=== PATIENT | male | born 1955 | race Caucasian/White ===

== ENCOUNTER 2020-09-24 07:55 | Outpatient (REF) | payer OTHER, SELFPAY ==
[2020-09-24 10:28] LABS: MANUAL DIFF FLAG NO
[2020-09-24 10:29] LABS: Basophils Percent Auto 0.4 % (0-2); Eosinophils Absolute Auto 0.2 X10*3/uL (0.0-0.4); Eosinophils Percent Auto 3.3 % (0-4); Hemoglobin 15.5 g/dl (14.0-18.0); Imm Gran Abs Auto 0.01 X10*3/uL (0.00-0.03); Imm Gran Pct Auto 0.2 % (0.0-0.4); Lymphocytes Absolute Auto 1.5 X10*3/uL (1.2-4.9); Mean Corpuscular HGB Conc 33.7 g/dl (31.0-36.0); Mean Platelet Volume 9.7 fL (9.4-12.4); Monocytes Absolute Auto 0.5 X10*3/uL (0.1-1.2); Monocytes Percent Auto 9.2 % (2-11); Neutrophils Absolute Auto 2.8 X10*3/uL (2.0-8.3); Neutrophils Percent Auto 56.9 % (45-73); Platelet Count 243 X10*3/uL (160-400); Red Blood Count 4.84 X10*6/uL (4.60-5.80); Red Cell Distribution Width 12.6 % (11.0-16.0); White Blood Count 4.9 X10*3/uL (4.8-10.8)
[2020-09-24 10:58] LABS: Alanine Aminotransferase 38 U/L (0-40); Albumin Level 4.1 g/dL (3.5-5.0); Alkaline Phosphatase 62 U/L (39-117); Anion Gap 11 (12-20); Aspartate Amino Transferase 38 U/L (5-37); Bilirubin Total 0.8 mg/dL (0.0-1.0); Blood Urea Nitrogen 24 mg/dL (9-16); Calcium 8.9 mg/dL (8.4-10.2); Carbon Dioxide 28 mmol/L (22-29); Chloride 105 mmol/L (96-108); Cholesterol 141 mg/dL; Estimated Glomerular Filt Rate > 60; Glucose Fasting 85 mg/dL (60-99); HDL Cholesterol 47 mg/dL; LDL Cholesterol Calculated 84 mg/dl; Potassium 4.4 mmol/l (3.3-5.1); Sodium 140 mmol/L (135-145); Total Protein 6.8 g/dL (6.5-8.0); Triglycerides 50 mg/dL
== END 2020-09-24 07:56 | disposition home or self-care (01) ==
LOC: HO.10HDL 07:55
PROVIDERS: Absent Provider Internal Medicine; PCP Internal Medicine; Visit Provider Internal Medicine
DX: E78.00 Pure hypercholesterolemia, unspecified (principal); N40.0 Benign prostatic hyperplasia without lower urinary tract symptoms; I25.10 Atherosclerotic heart disease of native coronary artery without angina pectoris
CPT/HCPCS: 36415; 80053; 80061; 85025

== ENCOUNTER → 2020-09-30 10:39 | Outpatient (BNVA) | payer OTHER, SELFPAY | PROVIDERS: PCP Internal Medicine; Visit Provider Internal Medicine | DX: I25.10 Atherosclerotic heart disease of native coronary artery without angina pectoris (principal); Q23.1 Congenital insufficiency of aortic valve | CPT/HCPCS: 93005; 99212 ==

== ENCOUNTER 2020-11-30 12:20 | Outpatient (REF) | payer OTHER, SELFPAY ==
[2020-11-30 14:14] LABS: Glucose Urine UA NEG (NEG); Leukocyte Esterase Urine NEG (NEG); Nitrite Urine NEG (NEG); PH 5.5 (5.0-8.0); Specific Gravity - Urine 1.025 (1.005-1.025); Urine Blood TRACE (NEG); Urine Ketones NEG (NEG); Urine Protein NEG (NEG-TRACE)
[2020-11-30 14:17] LABS: Appearance Urine CLEAR; Color Urine YELLOW
[2020-11-30 14:23] LABS: RBC Urine 0-2 /HPF (0); Squamous Epithelial Cell Urine TRACE /LPF; WBC Urine 0 /HPF (0-4)
[2020-11-30 14:43] LABS: Alanine Aminotransferase 30 U/L (0-40); Albumin Level 4.6 g/dL (3.5-5.0); Alkaline Phosphatase 68 U/L (39-117); Anion Gap 13 (12-20); Aspartate Amino Transferase 32 U/L (5-37); Bilirubin Total 0.7 mg/dL (0.0-1.0); Blood Urea Nitrogen 27 mg/dL (9-16); Calcium 9.6 mg/dL (8.4-10.2); Carbon Dioxide 30 mmol/L (22-29); Chloride 102 mmol/L (96-108); Estimated Glomerular Filt Rate > 60; Glucose Random 80 mg/dL (60-115); Potassium 4.6 mmol/L (3.3-5.1); Sodium 140 mmol/L (135-145); Total Protein 7.7 g/dL (6.5-8.0)
[2020-11-30 14:58] LABS: Prostate Specific Antigen Scr 1.58 ng/mL (<0.05-4.0)
== END 2020-11-30 12:21 | disposition home or self-care (01) ==
LOC: HO.HMGCLDS 12:20
PROVIDERS: PCP Internal Medicine; Visit Provider Internal Medicine
DX: I25.10 Atherosclerotic heart disease of native coronary artery without angina pectoris (principal); E78.00 Pure hypercholesterolemia, unspecified; N40.0 Benign prostatic hyperplasia without lower urinary tract symptoms; Z12.5 Encounter for screening for malignant neoplasm of prostate
CPT/HCPCS: 36415; 80053; 81001; 84153

== ENCOUNTER → 2021-03-26 08:17 | Outpatient (REF) | payer OTHER, SELFPAY ==
--- NOTE | 2021-03-26 08:20 | CA_ITS ---
Transthoracic Echocardiogram Patient (Last, First, Middle): Eliot Tobin E Gender: Male Date of : 1955 Age: 65 Procedure Date: 03/26/2021 Procedure Type: Transthoracic Echocardiogram Location: OP Height: 170.18 cm Weight: 65.77 kg BSA: 1.76 m2 Heart Rate: bpm BP: 120 / 80 mmHg Slps: Rac[place] MD: Gordon Huffman MD Conservation Engineer: Manjeet August MD Symptoms: I25.10 - Atherosclerotic heart disease of [place] coronary artery without angina pectoris Study Quality: Good ECG Rhythm: Sinus Conclusions: - 1. Normal LV systolic function with impaired relaxation filling pattern 2. Possible bicuspid aortic valve with trivial aortic regurgitation 3. Normal RV systolic pressure 4. No pericardial effusion Findings Left Ventricle Normal left ventricular size, thickness, and systolic function. The visually estimated ejection fraction is between 60-65%. Spectral Doppler is indicative of an impaired relaxation filling pattern. E/E prime ratio is <8, consistent with normal filling pressures. Evidence suggests grade I (mild) diastolic dysfunction. Wall Motion Rest Echo Findings The basal inferior segment is hypokinetic. All other scored wall segments showed normal motion. Right Ventricle Normal right ventricular cavity size and systolic function. Atria The left atrium is normal in size. There is no evidence of interatrial shunt. The right atrium is normal in size. Aortic Valve There is mild calcification of the aortic valve. There is mild thickening of the aortic valve. There is no aortic valve stenosis. There is trace (trivial) aortic valve regurgitation. Possible bicuspid aortic valve Mitral Valve Normal mitral valve structure and function. There is trace mitral valve regurgitation. There is no mitral valve stenosis. Pulmonic Valve The pulmonic valve is likely normal. Tricuspid Valve Normal tricuspid valve structure. There is trace tricuspid valve regurgitation. The right ventricular systolic pressure is 18 mmHg. There is no evidence of pulmonary hypertension. Great Vessels All visible segments of the aorta are normal in size. Venous The inferior vena cava is normal in size and collapses greater than 50% with inspiration. Pericardium/Pleural There is no evidence of pericardial effusion. Prior Study Comparison No significant change compared to prior study dated: 12/29/2020. Measurements 2D Linear Measurements RVIDd: 4.10 IVSd: 1.22 0.6-0.9/0.6-1.0 cm LVIDd: 5.01 3.9-5.3/4.2-5.9 cm LVIDs: 3.43 2.0-3.6 cm LVPWd: 1.03 0.7-1.1 cm Ao Root: 3.04 2.1-3.5 cm LV Mass: 267.22 67-162/88-224 g LVOT Diam: 2.27 3.0+(-)1.3 cm Mitral Valve MV Pk E: 0.69 MV PK A: 0.76 MV Decel Time: 252.25 E/A: 0.91 E'Lateral: 0.08 E'Medial: 0.05 PHT: 92.25 Decel [place]: 2.73 Aortic Valve AoV Pk Hermes: 1.33 AoV Mn Hermes: 0.89 AoV VTI: 0.31 AoV Pk Grad: 7.08 Aov Mn Grad: 3.67 AI Pk Hermes: 3.63 AI [place]: 1.22 LVOT LVOT Pk Hermes: 0.96 LVOT Mn Hermes: 0.65 LVOT VTI: 0.25 LVOT Pk Grad: 3.69 LVOT Mn Grad: 1.89 LVOT Diam: 2.27 LVOT Area: 4.03 Diastolic Function MV Pk E: 0.69 MV Pk A: 0.76 E/A: 0.91 E'Medial: 0.05 E' Laterial: 0.08 Tricuspid Valve TR Pk Hermes: 1.94 TR Pk Grad: 15.03 RA Press: 3.00 RVSP: 18.00 Great Vessels Aorta Ao Root-2D: 3.04 2.0-3.7 cm Ao Asc: 3.30 2.1-3.4 cm Ao Arch: 3.32 Updated in Other Vendor System with Status of Final Manjeet August MD electronically signed on 03/27/2021 2:17:15 PM with status of Final
== END ==
LOC: HO.CARD 08:17
PROVIDERS: Visit Provider Internal Medicine
DX: I25.10 Atherosclerotic heart disease of native coronary artery without angina pectoris (principal)
CPT/HCPCS: 93306

== ENCOUNTER → 2021-04-05 09:58 | Outpatient (BNVA) | payer OTHER, SELFPAY | PROVIDERS: PCP Internal Medicine; Referring Provider Internal Medicine; Visit Provider Internal Medicine | DX: I25.10 Atherosclerotic heart disease of native coronary artery without angina pectoris (principal); Q23.1 Congenital insufficiency of aortic valve | CPT/HCPCS: 99212 ==

== ENCOUNTER 2021-04-12 12:47 | Outpatient (REF) | payer OTHER, SELFPAY ==
--- NOTE | ~2021-04-12 | US_ITS ---
EXAMINATION: US EXTRACRANIAL CAROTID DUPLEX, BILATERAL CLINICAL INFORMATION: This is a 65-year-old male with occlusion and stenosis of bilateral carotid arteries. Atherosclerotic disease. COMPARISON: None TECHNIQUE: Real-time ultrasound and Doppler techniques (integrating B-mode 2-D vascular images, Doppler spectral analysis and color-flow Doppler imaging) were utilized to interrogate the extracranial carotid arteries, the vertebral arteries and proximal subclavian arteries bilaterally. The degree of stenosis is determined by criteria similar to NASCET. FINDINGS: Right Side: 1. There is minimal atherosclerotic plaque seen in the bifurcation/proximal ICA region. 2. The common carotid artery PSV proximally is 101 cm/s and distally 99 cm/s. 3. The proximal internal carotid artery velocities are 66 cm/s systolic and 26 cm/s diastolic. 4. The proximal external carotid artery PSV is 104 cm/s. 5. The vertebral artery shows antegrade flow. 6. The subclavian artery waveforms are normal. Left Side: 1. There is minimal atherosclerotic plaque seen in the bifurcation/proximal ICA region. 2. The common carotid artery PSV proximally is 110 cm/s and distally 82 cm/s. 3. The proximal internal carotid artery velocities are 54 cm/s systolic and 18 cm/s diastolic. 4. The proximal external carotid artery PSV is 89 cm/s. 5. The vertebral artery shows antegrade flow. 6. The subclavian artery waveforms are normal. US/US carotid duplex BI IMPRESSION: 1. RIGHT: Minimal, non-hemodynamically significant stenosis of the proximal right internal carotid artery corresponding to a 0-49% stenosis by velocity criteria. 2. LEFT: Minimal, non-hemodynamically significant stenosis of the proximal left internal carotid artery corresponding to a 0-49% stenosis by velocity criteria.
== END 2021-04-12 12:48 | disposition home or self-care (01) ==
LOC: HO.HMGCX 12:47
PROVIDERS: PCP Internal Medicine; Visit Provider Internal Medicine
DX: I25.10 Atherosclerotic heart disease of native coronary artery without angina pectoris (principal); I65.23 Occlusion and stenosis of bilateral carotid arteries
CPT/HCPCS: 93880

== ENCOUNTER → 2021-06-09 09:24 | Outpatient (BNVA) | payer OTHER, SELFPAY | PROVIDERS: PCP Internal Medicine; Referring Provider Internal Medicine; Visit Provider Internal Medicine | DX: I25.10 Atherosclerotic heart disease of native coronary artery without angina pectoris (principal); Q23.1 Congenital insufficiency of aortic valve | CPT/HCPCS: 99212 ==

== ENCOUNTER → 2021-06-25 08:53 | Outpatient (REF) | payer OTHER, SELFPAY ==
--- NOTE | ~2021-06-25 | NM_ITS ---
EXERCISE MYOCARDIAL PERFUSION STUDY INDICATION: Coronary artery disease, assess ischemia TECHNIQUE: The patient was brought in for an exercise perfusion study on 06/25/2021. Patient performed exercise as per Og protocol and was injected 25 mCi of sestamibi once target heart rate was achieved. Images were obtained using the SPECT gamma camera interlaced with the gating device. Images were obtained in supine position. Resting perfusion study was performed on 06/28/2021. Patient was administered 25 mCi of sestamibi intravenously at rest. Images were then obtained in supine position. Total DLP 78mGy-cm. Images were processed with the software and compared side to side in short axis, horizontal long axis and vertical long axis views. FINDINGS: Raw images were reviewed. The stress perfusion study showed diminished tracer uptake in the basal part of inferior septal and inferolateral wall. There is slight improvement with CT attenuation correction but less so in the inferoseptal aspect. The gated study shows low normal LV systolic function with calculated LVEF of 52%. LV cavity is normal in size. The gated study shows diminished contractility in the basal part of inferoseptal and inferolateral wall. Resting study shows mildly diminished tracer uptake in the basal inferoseptal and inferolateral wall. No significant change with CT attenuation correction. Gating at rest reveals wall motion abnormality similar to stress with LVEF 56%. The findings are consistent with perfusion defect in the basal part of anteroseptal and inferolateral [place] with some reversible and some fixed components. NM/NM cardiolite stress test IMPRESSION: 1. Myocardial perfusion imaging study shows mixed ischemia/infarct pattern in the basal inferoseptal/inferolateral wall. 2. Gated LVEF is 52% during stress and 56% during rest. Correlate with echocardiogram. 3. Transient ischemic dilatation not present. EKG component of the test reported separately.
--- NOTE | 2021-06-25 08:56 | CA_ITS ---
Acquisition Time: 2021-06-25 09:08:56 Total Exercise Time: 00:11:00 Test Indications: Abnormal ECG Medications: ASA ATORVASTATIN Protocol: CHRISTEN Max HR: 142 BPM 91% of Pred: 156 BPM Max BP: 178/086 mmHG Max Work Load: 13.4 METS Exercise stress test with exercise 11 min of Christen protocol, achieving 13.4 MET workload, with mild sob, no chest discomfort, with isolated PVCs and ventricular cuplets, with normotensive response to exercise, with artifact at peak exercise, without EKG changes meeting criteria for ischemia at 30 sec and 1min 5 sec of recovery then with slight downslope of ST segments inferiorly and V5-V6 starting at 6 min recovery and continuing until end of test at 11 min recovery, asymptomatic. Nuclear images pending. Test reviewed with Dr Huffman. Referred By: Gordon Huffman Overread By: AZRA JARVIS
== END ==
LOC: HO.CARD 08:53
PROVIDERS: Visit Provider Internal Medicine
DX: I25.10 Atherosclerotic heart disease of native coronary artery without angina pectoris (principal)
CPT/HCPCS: 78452; 93017; A9500

== ENCOUNTER → 2021-07-07 15:09 | Outpatient (BNVA) | payer OTHER, SELFPAY | PROVIDERS: PCP Internal Medicine; Referring Provider Internal Medicine; Visit Provider Nurse Practitioner Family ==

== ENCOUNTER 2021-08-04 09:08 | Outpatient (REF) | payer OTHER, SELFPAY ==
[2021-08-04 11:25] LABS: MANUAL DIFF FLAG NO
[2021-08-04 11:37] LABS: Basophils Percent Auto 0.5 % (0-2); Eosinophils Absolute Auto 0.1 X10*3/uL (0.0-0.4); Eosinophils Percent Auto 3.2 % (0-4); Hematocrit 43.6 % (42.0-52.0); Hemoglobin 15.1 g/dl (14.0-18.0); Imm Gran Abs Auto 0.01 X10*3/uL (0.00-0.03); Imm Gran Pct Auto 0.3 % (0.0-0.4); Lymphocytes Absolute Auto 0.9 X10*3/uL (1.2-4.9); Lymphocytes Percent Auto 24.8 % (20-40); Mean Corpuscular HGB Conc 34.6 g/dl (31.0-36.0); Mean Corpuscular Hemoglobin 31.7 pg (27.0-33.0); Mean Corpuscular Volume 91.6 fL (80.0-98.0); Monocytes Absolute Auto 0.3 X10*3/uL (0.1-1.2); Monocytes Percent Auto 8.2 % (2-11); Neutrophils Absolute Auto 2.4 x10*3/uL (2.0-8.3); Platelet Count 199 X10*3/uL (160-400); Red Blood Count 4.76 X10*6/uL (4.60-5.80); Red Cell Distribution Width 12.3 % (11.0-16.0); White Blood Count 3.8 X10*3/uL (4.8-10.8)
[2021-08-04 11:38] LABS: INTERNATIONAL NORM RATIO 1.3 (0.9-1.1); Prothrombin Time 14.3 SEC (9.9-13.0)
[2021-08-04 12:12] LABS: Alanine Aminotransferase 34 U/L (0-40); Albumin Level 4.3 g/dL (3.5-5.0); Alkaline Phosphatase 66 U/L (39-117); Anion Gap 12 (12-20); Aspartate Amino Transferase 44 U/L (5-37); Bilirubin Total 1.2 mg/dL (0.0-1.0); Blood Urea Nitrogen 21 mg/dL (9-16); Calcium 9.2 mg/dL (8.4-10.2); Carbon Dioxide 28 mmol/L (22-29); Chloride 103 mmol/L (96-108); Cholesterol 135 mg/dL; Estimated Glomerular Filt Rate > 60; Glucose Fasting 80 mg/dL (60-99); HDL Cholesterol 50 mg/dL; LDL Cholesterol Calculated 73 mg/dl; Potassium 4.3 mmol/L (3.3-5.1); Sodium 139 mmol/L (135-145); Total Protein 7.1 g/dL (6.5-8.0); Triglycerides 61 mg/dL
== END 2021-08-04 09:09 | disposition home or self-care (01) ==
LOC: HO.HMGCLDS 09:08
PROVIDERS: Internal Medicine; PCP Internal Medicine; Visit Provider Internal Medicine
DX: I25.10 Atherosclerotic heart disease of native coronary artery without angina pectoris (principal); E78.00 Pure hypercholesterolemia, unspecified
CPT/HCPCS: 36415; 80048; 80053; 80061; 85025; 85610

== ENCOUNTER 2021-09-20 10:51 | Outpatient (REF) | payer OTHER, SELFPAY ==
--- NOTE | ~2021-09-20 | XR_ITS ---
EXAMINATION: XR CERVICAL SPINE CLINICAL INFORMATION: Neck pain COMPARISON: Radiographs cervical spine 11/17/2017 TECHNIQUE: 3 views of the cervical spine were obtained. FINDINGS: Vertebral bodies are normal in height with normal cervical lordosis. There is no cervical vertebral compression, spondylolisthesis, destructive process, or prevertebral soft tissue swelling. Again, there is mild disc narrowing C5-C6 with mild associated vertebral spurring. There is borderline disc narrowing at C6-C7. No erosive changes. XR/XR cervical spine 3V IMPRESSION: Mild disc narrowing C5-C6 and C6-C7.
== END 2021-09-20 10:52 | disposition home or self-care (01) ==
LOC: HO.HMGCX 10:51
PROVIDERS: PCP Internal Medicine; Visit Provider Internal Medicine
DX: M54.2 Cervicalgia (principal)
CPT/HCPCS: 72040

== ENCOUNTER 2021-11-01 13:00 | Outpatient (RCR) | payer OTHER, SELFPAY ==
--- NOTE | 2021-11-01 13:57 | MHC.PT.DC ---
[facility] [place] [facility] [place] [facility] [place] [facility] [address] Jaelyn Wilder [address] [phone] F: [phone] F: [phone] F: [phone] F: [phone] Physical Therapy Discharge Report Diagnosis: cervicalgia Date of Surgery: n/a Date of Evaluation: 10/06/21 Date of Discharge: 11/01/21 Treatments to Date: 8 Cancellations to Date: 0 No Shows to Date: 0 Discharge Status: Patient Elected to Stop Recommend MD Follow-up Discharge Summary: Pt has unfortunately made little to no progress since beginning skilled PT. 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 He has actually demonstrated a worse score on the NDI compared to when he started skilled PT. His lack of progress has prevented him from meeting and making progress towards his STGs and LTGs. Various treatment interventions have been provided all without significant relief. Ultimately at this time max benefits of PT have been provided and skilled PT is no longer indicated at this time. Pt is in agreement with d/c today. Discussed with pt my recommendation for MD follow up and pt with good understanding and agreement stating he will reach out to his doctor today. Electronically signed by: Shy Powell, PT, DPT, ATC Please sign and return to therapist. Thank you for your referral.
== END 2021-11-01 13:58 | disposition home or self-care (01) ==
LOC: HO.PTCHIC 13:00
PROVIDERS: PCP Internal Medicine; Visit Provider Internal Medicine
DX: M54.2 Cervicalgia (principal)
CPT/HCPCS: 97110; 97140; 97161

== ENCOUNTER 2021-11-22 07:21 | Outpatient (REF) | payer OTHER, SELFPAY ==
--- NOTE | ~2021-11-22 | MR_ITS ---
EXAMINATION: MR CERVICAL SPINE WITHOUT CONTRAST CLINICAL INFORMATION: Neck pain. DDD on x-ray. COMPARISON: None available. TECHNIQUE: MRI of the cervical spine was performed using routine sequences without contrast. FINDINGS: The cervical vertebral bodies maintain normal heights and alignment. There is mild disc height loss at C5-C6 and C6-C7. Disc height loss with endplate edema is seen at T2-T3. Robust marrow edema is seen about the left-sided C2-C3 facets with significant periarticular edema also demonstrated. The cervical cord signal appears normal. The imaged intracranial contents appear normal. The extraspinal soft tissues appear normal. SPINAL LEVELS: C2-C3: No posterior disc abnormality. Severe left facet arthropathy.. No spinal canal or neural foraminal stenosis. C3-C4: No posterior disc abnormality. Mild to moderate left and mild right facet arthropathy. Mild left neural foraminal stenosis. No spinal canal stenosis. C4-C5: No posterior disc abnormality. Mild to moderate bilateral facet arthropathy. No spinal canal stenosis. Mild left neural foraminal stenosis. C5-C6: Disc osteophyte complex with left more than right uncovertebral hypertrophy and mild facet arthropathy. Severe left and moderate right neural foraminal stenosis. No spinal canal stenosis. C6-C7: Disc osteophyte complex with uncovertebral hypertrophy asymmetrically worse in the left resulting in moderate to severe left and mild right neural foraminal stenosis. C7-T1: No posterior disc abnormality. No spinal canal or neural foraminal stenosis. MR/MR cervical spine wo con IMPRESSION: Multilevel degenerative spondylosis without significant narrowing of the spinal canal. Neural foraminal stenosis appears severe on the left and moderate on the right at C5-C6 and moderate to severe on the left at C6-C7. Marrow and periarticular edema seen about the left-sided C2-C3 facet reflecting ongoing advanced arthropathy. Subchondral endplate edema noted at T2-T3.
== END 2021-11-22 07:22 | disposition home or self-care (01) ==
LOC: HO.MRI 07:21
PROVIDERS: Visit Provider Internal Medicine
DX: M50.322 Other cervical disc degeneration at C5-C6 level (principal)
CPT/HCPCS: 72141

== ENCOUNTER 2021-11-25 15:51 | Outpatient (REF) | payer OTHER, SELFPAY ==
--- NOTE | ~2021-11-25 | XR_ITS ---
. XR calcaneus RT min 2V CLINICAL INFORMATION: Reason for Exam RIGHT HEEL PAIN. EVALUATE FOR HEEL SPUR COMPARISON: None TECHNIQUE: Lateral and axial views FINDINGS: There is no radiographic evidence of acute fracture or dislocation. Boehler's angle is within normal range. Subtalar joint is intact. There is a tiny inferior calcaneal spur. XR/XR calcaneus RT min 2V IMPRESSION: Tiny inferior calcaneal spur.
== END 2021-11-25 15:52 | disposition home or self-care (01) ==
LOC: HO.HMGCX 15:51
PROVIDERS: Absent Provider Podiatrist; PCP Internal Medicine; Visit Provider Physical Medicine & Rehabilitation
DX: M77.31 Calcaneal spur, right foot (principal)
CPT/HCPCS: 73650

== ENCOUNTER 2021-11-29 10:14 | Outpatient (REF) | payer OTHER, SELFPAY ==
[2021-11-29 14:00] LABS: MANUAL DIFF FLAG NO
[2021-11-29 14:15] LABS: Basophils Percent Auto 0.2 % (0-2); Eosinophils Absolute Auto 0.1 X10*3/uL (0.0-0.4); Eosinophils Percent Auto 1.2 % (0-4); Hematocrit 42.9 % (42.0-52.0); Hemoglobin 14.8 g/dl (14.0-18.0); Imm Gran Abs Auto 0.01 X10*3/uL (0.00-0.03); Imm Gran Pct Auto 0.2 % (0.0-0.4); Lymphocytes Absolute Auto 0.8 X10*3/uL (1.2-4.9); Lymphocytes Percent Auto 19.9 % (20-40); Mean Corpuscular HGB Conc 34.5 g/dl (31.0-36.0); Mean Corpuscular Hemoglobin 32.1 pg (27.0-33.0); Mean Corpuscular Volume 93.1 fL (80.0-98.0); Mean Platelet Volume 10.1 fL (9.4-12.4); Monocytes Absolute Auto 0.2 X10*3/uL (0.1-1.2); Monocytes Percent Auto 3.7 % (2-11); Neutrophils Percent Auto 74.8 % (45-73); Platelet Count 215 X10*3/uL (160-400); Red Blood Count 4.61 X10*6/uL (4.60-5.80); White Blood Count 4.1 X10*3/uL (4.8-10.8)
[2021-11-29 14:31] LABS: Alanine Aminotransferase 29 U/L (0-40); Albumin Level 4.1 g/dL (3.5-5.0); Alkaline Phosphatase 55 U/L (39-117); Anion Gap 11 (12-20); Aspartate Amino Transferase 38 U/L (5-37); Blood Urea Nitrogen 17 mg/dL (9-16); Calcium 9.2 mg/dL (8.4-10.2); Carbon Dioxide 28 mmol/L (22-29); Chloride 106 mmol/L (96-108); Cholesterol 123 mg/dL; Estimated Glomerular Filt Rate > 60; Glucose Fasting 89 mg/dL (60-99); HDL Cholesterol 51 mg/dL; LDL Cholesterol Calculated 65 mg/dl; Potassium 4.2 mmol/L (3.3-5.1); Sodium 141 mmol/L (135-145); Total Protein 6.8 g/dL (6.5-8.0); Triglycerides 38 mg/dL
[2021-11-29 14:53] LABS: Prostate Specific Antigen Scr 1.68 ng/mL (<0.05-4.0)
== END 2021-11-29 10:15 | disposition home or self-care (01) ==
LOC: HO.10HDL 10:14
PROVIDERS: Visit Provider Internal Medicine
DX: I25.10 Atherosclerotic heart disease of native coronary artery without angina pectoris (principal); E78.00 Pure hypercholesterolemia, unspecified; N40.0 Benign prostatic hyperplasia without lower urinary tract symptoms; Z12.5 Encounter for screening for malignant neoplasm of prostate
CPT/HCPCS: 36415; 80053; 80061; 84153; 85025

== ENCOUNTER → 2021-12-29 09:22 | Outpatient (BNVA) | payer OTHER, SELFPAY | PROVIDERS: PCP Internal Medicine; Referring Provider Internal Medicine; Visit Provider Internal Medicine | DX: I25.10 Atherosclerotic heart disease of native coronary artery without angina pectoris (principal); R00.1 Bradycardia, unspecified; Q23.1 Congenital insufficiency of aortic valve | CPT/HCPCS: 93005; 99212 ==

== ENCOUNTER → 2022-01-18 15:09 | Outpatient (BNVA) | payer OTHER, SELFPAY | PROVIDERS: PCP Internal Medicine; Referring Provider Internal Medicine; Visit Provider Surgery | DX: K40.90 Unilateral inguinal hernia, without obstruction or gangrene, not specified as recurrent (principal) | CPT/HCPCS: 99202 ==

== ENCOUNTER → 2022-06-15 09:31 | Outpatient (REF) | payer MEDICARE, SELFPAY ==
--- NOTE | 2022-06-15 09:36 | CA_ITS ---
Transthoracic Echocardiogram Patient (Last, First, Middle): Eliot Tobin E Gender: Male Date of : 1955 Age: 67 Procedure Date: 06/15/2022 Procedure Type: Transthoracic Echocardiogram Location: OP Height: 170.18 cm Weight: 65.77 kg BSA: 1.76 m2 Heart Rate: bpm BP: 120 / 70 mmHg Farm Agent: TO Referring MD: Gordon Huffman MD Symptoms: I25.10 - Atherosclerotic heart disease of [place] coronary... Study Quality: Adequate ECG Rhythm: Sinus Conclusions: - The left ventricular systolic function is normal. The calculated ejection fraction is 59% by biplane method. - The basal inferior segment is hypokinetic. - There is mild calcification of the aortic valve. There is mild aortic valve stenosis. Cannot differentiate if bicuspid or trileaflet. Findings Left Ventricle Normal left ventricular cavity size. There is mildly increased left ventricular wall thickness. The left ventricular systolic function is normal. The calculated ejection fraction is 59% by biplane method. There is no evidence of regional wall motion abnormalities. Diastolic function is normal for age. Wall Motion Rest Echo Findings The basal inferior segment is hypokinetic. Right Ventricle Normal right ventricular cavity size and systolic function. Atria The left atrium is mildly dilated. The right atrium is moderately dilated. Aortic Valve There is mild calcification of the aortic valve. There is mild aortic valve stenosis. The mean gradient is 9 mmHg. The aortic valve area is 1.63 cm2. There is trace (trivial) aortic valve regurgitation. Dimensionless index 0.45. Cannot differentiate if bicuspid or trileaflet. Trace to mild aortic regurgitation. Mitral Valve There is mild mitral annular calcification. There is trace mitral valve regurgitation. There is no mitral valve stenosis. Pulmonic Valve The pulmonic valve is likely normal. Tricuspid Valve Normal tricuspid valve structure. There is trace tricuspid valve regurgitation. There is no evidence of pulmonary hypertension. Great Vessels The asc aorta is normal in size. Venous The inferior vena cava is normal in size and collapses greater than 50% with inspiration. Pericardium/Pleural There is no evidence of pericardial effusion. Prior Study Comparison Changes noted compared to prior study dated: 03/26/2021. Mild aortic valve stenosis seen. Measurements 2D Linear Measurements IVSd: 1.35 0.6-0.9/0.6-1.0 cm LVIDd: 4.58 3.9-5.3/4.2-5.9 cm LVIDd Index: 2.60 2.4-3.2/2.2-3.1 cm/m2 LVIDs: 3.26 2.0-3.6 cm LVPWd: 1.26 0.7-1.1 cm LA Diam: 4.50 2.7-3.8/3.0-4.0 cm LAIDs Index: 2.56 1.5-2.3 cm/m2 LV Mass: 286.65 67-162/88-224 g LV Mass Index: 162.87 43-95/49-115 g/m2 LVOT Diam: 2.00 3.0+(-)1.3 cm 2D Systolic Function EF 4C: 54.30 >55% EF 2C: 60.40 >55% EF BiP: 58.80 >55% Mitral Valve MV Pk E: 0.52 MV PK A: 0.70 MV Decel Time: 271.00 E/A: 0.70 E'Lateral: 7.51 E'Medial: 5.98 E/E' Med: 8.70 E/E' Lat: 7.00 PHT: 79.00 MVA PHT: 2.78 Decel [place]: 1.93 Aortic Valve AoV Pk Hermes: 2.14 AoV Mn Hermes: 1.38 AoV VTI: 0.48 AoV Pk Grad: 18.00 Aov Mn Grad: 9.00 ALPHONSO Cont.VTI: 1.63 AI Pk Hermes: 4.62 AI [place]: 1.64 LVOT LVOT Pk Hermes: 0.95 LVOT Mn Hermes: 0.64 LVOT VTI: 0.25 LVOT Pk Grad: 4.00 LVOT Mn Grad: 2.00 LVOT Diam: 2.00 LVOT Area: 3.14 Diastolic Function MV Pk E: 0.52 MV Pk A: 0.70 E/A: 0.70 E'Medial: 5.98 E/E' Med: 8.70 E' Laterial: 7.51 E/E' Lat: 7.00 Right Ventricle TAPSE (mm): 21.70 TVS' Hermes: 10.00 Tricuspid Valve TR Pk Hermes: 1.89 TR Pk Grad: 14.00 RA Press: 3.00 RVSP: 17.00 Great Vessels Aorta Sinus of Valsalva: 3.43 2.0-3.[address] [place]: 2.79 1.7-3.4 cm Ao Asc: 3.40 2.1-3.4 cm Updated in Other Vendor System with Status of Final Gordon Huffman MD electronically signed on 06/16/2022 11:47:20 AM with status of Final
== END ==
LOC: HO.CARD 09:31
PROVIDERS: PCP Internal Medicine; Visit Provider Internal Medicine
DX: I25.10 Atherosclerotic heart disease of native coronary artery without angina pectoris (principal); Q23.1 Congenital insufficiency of aortic valve
CPT/HCPCS: 93306

== ENCOUNTER → 2022-06-29 08:58 | Outpatient (BNVA) | payer MEDICARE, SELFPAY | PROVIDERS: PCP Internal Medicine; Referring Provider Internal Medicine; Visit Provider Internal Medicine | DX: I25.10 Atherosclerotic heart disease of native coronary artery without angina pectoris (principal); Q23.1 Congenital insufficiency of aortic valve; R00.1 Bradycardia, unspecified | CPT/HCPCS: 99212 ==

== ENCOUNTER → 2022-07-01 10:00 | Outpatient (BNVA) | payer MEDICARE, SELFPAY | PROVIDERS: PCP Internal Medicine; Referring Provider Internal Medicine; Visit Provider Surgery | DX: K40.90 Unilateral inguinal hernia, without obstruction or gangrene, not specified as recurrent (principal) | CPT/HCPCS: 99212 ==

== ENCOUNTER 2022-12-05 10:25 | Outpatient (REF) | payer MEDICARE, SELFPAY ==
[2022-12-05 13:39] LABS: MANUAL DIFF FLAG NO
[2022-12-05 14:00] LABS: Appearance Urine Clear; Color Urine Yellow; Glucose Urine UA Negative (Negative); Leukocyte Esterase Urine Negative (Negative); Nitrite Urine Negative (Negative); PH 5.5 (5.0-9.0); Urine Blood Negative (Negative); Urine Ketones Negative (Negative); Urine Protein Negative (Neg-Trace)
[2022-12-05 14:03] LABS: Basophils Percent Auto 0.4 % (0-2); Eosinophils Absolute Auto 0.1 X10*3/uL (0.0-0.4); Eosinophils Percent Auto 2.9 % (0-4); Hematocrit 45.8 % (42.0-52.0); Hemoglobin 15.6 g/dl (14.0-18.0); Imm Gran Abs Auto 0.01 X10*3/uL (0.00-0.03); Imm Gran Pct Auto 0.2 % (0.0-0.4); Lymphocytes Absolute Auto 1.3 X10*3/uL (1.2-4.9); Lymphocytes Percent Auto 28.4 % (20-40); Mean Corpuscular HGB Conc 34.1 g/dl (31.0-36.0); Mean Corpuscular Hemoglobin 31.2 pg (27.0-33.0); Mean Corpuscular Volume 91.6 fL (80.0-98.0); Mean Platelet Volume 9.6 fL (9.4-12.4); Monocytes Absolute Auto 0.4 X10*3/uL (0.1-1.2); Monocytes Percent Auto 8.4 % (2-11); Neutrophils Absolute Auto 2.7 x10*3/uL (2.0-8.3); Neutrophils Percent Auto 59.7 % (45-73); Platelet Count 229 X10*3/uL (160-400); Red Cell Distribution Width 12.9 % (11.0-16.0); White Blood Count 4.5 X10*3/uL (4.8-10.8)
[2022-12-05 14:29] LABS: Alanine Aminotransferase 28 U/L (0-40); Albumin Level 4.4 g/dL (3.5-5.0); Alkaline Phosphatase 62 U/L (39-117); Anion Gap 11 (12-20); Aspartate Amino Transferase 37 U/L (5-37); Bilirubin Total 1.1 mg/dL (0.0-1.0); Blood Urea Nitrogen 21 mg/dL (9-16); Calcium 9.2 mg/dL (8.4-10.2); Carbon Dioxide 28 mmol/L (22-29); Chloride 105 mmol/L (96-108); Cholesterol 149 mg/dL; Estimated Glomerular Filt Rate > 60; Glucose Fasting 79 mg/dL (60-99); HDL Cholesterol 54 mg/dL; LDL Cholesterol Calculated 86 mg/dl; Potassium 4.8 mmol/L (3.3-5.1); Sodium 139 mmol/L (135-145); Total Protein 7.3 g/dL (6.5-8.0); Triglycerides 48 mg/dL
[2022-12-05 14:35] LABS: Prostate Specific Antigen 1.84 ng/mL (<0.05-4.0)
== END 2022-12-05 10:26 | disposition home or self-care (01) ==
LOC: HO.10HDL 10:25
PROVIDERS: Visit Provider Internal Medicine
DX: Z00.00 Encounter for general adult medical examination without abnormal findings (principal); Z12.5 Encounter for screening for malignant neoplasm of prostate; I25.10 Atherosclerotic heart disease of native coronary artery without angina pectoris; E78.00 Pure hypercholesterolemia, unspecified
CPT/HCPCS: 36415; 80053; 80061; 81003; 84153; 85025

== ENCOUNTER → 2023-01-04 09:13 | Outpatient (BNVA) | payer MEDICARE, SELFPAY | PROVIDERS: PCP Internal Medicine; Visit Provider Internal Medicine | DX: I25.10 Atherosclerotic heart disease of native coronary artery without angina pectoris (principal); Q23.1 Congenital insufficiency of aortic valve; R00.1 Bradycardia, unspecified | CPT/HCPCS: 93005; 99212 ==

== ENCOUNTER 2023-02-21 15:51 | Outpatient (REF) | payer MEDICARE, SELFPAY ==
[2023-02-21 18:26] LABS: Anion Gap 14 (12-20); Blood Urea Nitrogen 25 mg/dL (9-16); Calcium 9.4 mg/dL (8.4-10.2); Carbon Dioxide 24 mmol/L (22-29); Chloride 108 mmol/L (96-108); Estimated Glomerular Filt Rate > 60; Glucose Random 97 mg/dL (60-115); Potassium 4.5 mmol/L (3.3-5.1); Sodium 141 mmol/L (135-145)
== END 2023-02-21 15:52 | disposition home or self-care (01) ==
LOC: HO.LAB 15:51
PROVIDERS: PCP Internal Medicine; Visit Provider Internal Medicine
DX: I25.10 Atherosclerotic heart disease of native coronary artery without angina pectoris (principal)
CPT/HCPCS: 36415; 80048

== ENCOUNTER 2023-04-19 09:58 | Outpatient (AMB) | payer MEDICARE, SELFPAY ==
--- NOTE | 2023-04-19 10:00 | A.OFFVIS_ITS ---
Intake Vital Signs 04/19/23 10:01 Height 5 ft 7 in Weight 149 lb 0.52 oz BMI 23.3 BP 100/62 Blood Pressure Location Lt brachial Position Sitting Pulse 68 Intake Visit Reasons: f/up CTA Intake Note: follow up Post Manager Required: No Accompanied by: Self / Same As Patient Allergies shellfish derived Allergy (Unknown, Verified 04/19/23 10:02) Unknown Medication List - Last Reconciled 04/19/23 by Gordon Huffman MD aspirin 81 mg PO DAILY atorvastatin 40 mg PO DAILY HPI HPI Comments History of Present Illness Details Eliot returns for follow-up regarding coronary disease. Clinically, he has got no symptoms whatsoever. Continues to run regularly. Even today, he states he ran 5 miles before coming for the appointment. Feels fine. FORMERLY [facility], 1928–1983 Medical History Atherosclerotic cardiovascular disease Bicuspid aortic valve Surgical History History of hernia repair Family History Father CVD (cardiovascular disease) Mother Atrial fibrillation CVD (cardiovascular disease) Social History Alcohol intake: current Alcohol intake frequency: 0-2 drinks per day Alcohol type: beer Patient Tobacco Use Status: Never used Tobacco Review of Systems Const Denies weakness ENT Denies dizziness Card Denies chest pain, Denies chest pain with activity, Denies syncope, Denies rapid heart rate, Denies pedal edema, Denies edema, Denies leg edema, Denies lightheadedness, Denies palpitations, Denies dyspnea, Denies dyspnea on exertion and Denies orthopnea Resp Denies cough, Denies dyspnea and Denies dyspnea on exertion GI Denies hematochezia and Denies change in stool character Musc Denies abnormal gait, Denies muscle cramps, Denies muscle weakness, Denies numbness, Denies radiating pain into limb and Denies tingling Neuro Denies abnormal gait, Denies dizziness, Denies syncope, Denies numbness, Denies tingling and Denies weakness Endo Denies palpitations Physical Exam Vital Signs: Last Vital Signs Pulse 68 04/19/23 10:01 BP 100/62 04/19/23 10:01 BMI result Body Mass Index 23.3 Const General: comfortable and no acute distress Orientation/consciousness: patient oriented x3 HEENT Other: Unremarkable Head: Yes normal to inspection Neck Neck: Yes normal visual inspection Chest Chest palpation & inspection: normal inspection of the chest Resp Auscultation: clear to auscultation bilaterally Cardio Palpation: normal PMI Heart sounds: S1 normal heart sound present, S2 normal heart sound present, no gallops, no murmurs and no rubs GI Palpation (GI): Soft to palpation Back/Spine/Pelvis Other: unremarkable Skin General skin exam: no rashes or lesions noted Neuro General: patient oriented x3 Extrem General: Yes normal to inspection Psych Mental Status: mental status grossly normal Assessment & Plan Assessment & Plan (1) Atherosclerotic cardiovascular disease: Code(s): I25.10 - Atherosclerotic heart disease of [place] coronary artery without angina pectoris Plan: Cardiac studies reviewed. Coronary CTA from last month reviewed- no clear obstructive disease. In the proximal RCA, stenosis much less evident and measures about 25%. However, 2 new foci of eccentric block more distally in the proximal RCA with minimal stenosis. Mild plaque in the proximal left circumflex and similar to before. Slight progression in the proximal to mid LAD calcification but again minimal stenosis. Trace calcification in the ostial left main but no measurable stenosis. Mild left atrial/left ventricular dilatation and that might be from in during this activities. Coronary CTA 2019 showed focal narrowing in the mid left circumflex of about 50- 70%; there was also focal narrowing in the proximal RCA of about 50-70%. Echocardiogram from 2021 with LVEF of 59%. Basal inferior hypokinesis. Possible bicuspid aortic valve. Myocardial perfusion imaging study 2020 with mixed ischemia/infarct pattern in the basal inferoseptal/inferolateral wall. In the exercise component, he was able to do as much as 11 minutes. Overall, he does have evidence of underlying coronary disease, but no symptoms whatsoever. Per coronary CTA, there is evidence of plaque regression in the right coronary artery but some other areas with new plaque. Overall, continue aggressive risk factor modification. He is already pursuing intense physical activities with no issues. We have discussed possibility of coronary events during intense activity, but he he would like to keep his activities without any changes. Continue aspirin and statins. LDL higher than ideal, but he would like to again keep statins at the current dose and recheck in a few months through his own PCP. If still in this range, may go up on the atorvastatin to 80 mg daily. (2) Bicuspid aortic valve: Code(s): Q23.1 - Congenital insufficiency of aortic valve Plan: Not entirely clear if he truly has a bicuspid valve or not. Any case, no hemodynamic significance at this time. May continue to follow periodically. (3) Bradycardia: Code(s): R00.1 - Bradycardia, unspecified Plan: EKG shows sinus bradycardia and prolonged IA. Possibly from high vagal tone due to regular exercise. No specific interventions. Coding Level of Care Code Est Pt Level 4 (03145) Diagnoses Atherosclerotic cardiovascular disease I25.10 Bicuspid aortic valve Q23.1 Bradycardia R00.1
[2023-04-19 10:01] VITALS: BP 100/62; PULSE 68; BMI 23.3
== END 2023-04-19 10:16 | disposition home or self-care (01) ==
PROVIDERS: Visit Provider Internal Medicine
DX: I25.10 Atherosclerotic heart disease of native coronary artery without angina pectoris (principal); Q23.1 Congenital insufficiency of aortic valve; R00.1 Bradycardia, unspecified
CPT/HCPCS: 99214

== ENCOUNTER → 2023-04-19 09:58 | Outpatient (BNVA) | payer MEDICARE, SELFPAY | PROVIDERS: Visit Provider Internal Medicine | DX: I25.10 Atherosclerotic heart disease of native coronary artery without angina pectoris (principal); Q23.1 Congenital insufficiency of aortic valve; R00.1 Bradycardia, unspecified | CPT/HCPCS: 99212 ==

== ENCOUNTER 2023-06-12 09:35 | Outpatient (REF) | payer MEDICARE, SELFPAY ==
[2023-06-12 09:55] LABS: MANUAL DIFF FLAG NO
[2023-06-12 10:02] LABS: Basophils Percent Auto 0.7 % (0-2); Eosinophils Absolute Auto 0.2 X10*3/uL (0.0-0.4); Eosinophils Percent Auto 3.7 % (0-4); Hematocrit 45.7 % (42.0-52.0); Hemoglobin 15.5 g/dl (14.0-18.0); Imm Gran Abs Auto 0.01 X10*3/uL (0.00-0.03); Imm Gran Pct Auto 0.2 % (0.0-0.4); Lymphocytes Absolute Auto 1.2 X10*3/uL (1.2-4.9); Lymphocytes Percent Auto 29.8 % (20-40); Mean Corpuscular HGB Conc 33.9 g/dl (31.0-36.0); Mean Corpuscular Hemoglobin 31.4 pg (27.0-33.0); Mean Corpuscular Volume 92.7 fL (80.0-98.0); Mean Platelet Volume 9.1 fL (9.4-12.4); Monocytes Absolute Auto 0.4 X10*3/uL (0.1-1.2); Monocytes Percent Auto 8.6 % (2-11); Neutrophils Absolute Auto 2.3 x10*3/uL (2.0-8.3); Platelet Count 219 X10*3/uL (160-400); Red Blood Count 4.93 X10*6/uL (4.60-5.80); White Blood Count 4.1 X10*3/uL (4.8-10.8)
[2023-06-12 10:36] LABS: Alanine Aminotransferase 33 U/L (0-40); Albumin Level 4.2 g/dL (3.5-5.0); Alkaline Phosphatase 61 U/L (39-117); Anion Gap 7 (12-20); Aspartate Amino Transferase 41 U/L (5-37); Bilirubin Total 0.7 mg/dL (0.0-1.0); Blood Urea Nitrogen 25 mg/dL (9-16); Calcium 9.7 mg/dL (8.4-10.2); Carbon Dioxide 29 mmol/L (22-29); Chloride 107 mmol/L (96-108); Estimated Glomerular Filt Rate > 60; Glucose Random 67 mg/dL (60-115); Lipase 21 U/L (8-78); Sodium 139 mmol/L (135-145); Total Protein 7.2 g/dL (6.5-8.0)
== END 2023-06-12 09:36 | disposition home or self-care (01) ==
LOC: HO.LAB 09:35
PROVIDERS: PCP Internal Medicine; Visit Provider Internal Medicine
DX: R10.9 Unspecified abdominal pain (principal); E78.00 Pure hypercholesterolemia, unspecified; I25.10 Atherosclerotic heart disease of native coronary artery without angina pectoris
CPT/HCPCS: 36415; 80053; 83690; 85025

== ENCOUNTER 2023-10-25 10:17 | Outpatient (AMB) | payer MEDICARE, SELFPAY ==
[2023-10-25 10:22] VITALS: BP 142/80; PULSE 44; BMI 24.1
--- NOTE | 2023-10-25 10:22 | A.OFFVIS_ITS ---
Intake Vital Signs 10/25/23 10:22 Height 5 ft 7 in Weight 153 lb 14.122 oz BMI 24.1 BP 142/80 H Blood Pressure Location Lt brachial Position Sitting Pulse 44 L Intake Visit Reasons: 6 mth f/up Intake Note: 6 mnth f/up pt its feeling fine. Flat Folder Required: No Accompanied by: Self / Same As Patient Allergies shellfish derived Allergy (Unknown, Verified 04/19/23 10:02) Unknown Medication List - Last Reconciled 10/25/23 by Gordon Huffman MD aspirin 81 mg PO DAILY atorvastatin 40 mg PO DAILY HPI HPI Comments History of Present Illness Details Eliot returns for follow-up regarding coronary disease. He states that he is still running regularly with no issues. As much as 5 miles a day and he gets no chest pain or in fact any cardiac symptoms whatsoever. Extremely active with no limitations. [facility] Medical History Atherosclerotic cardiovascular disease Bicuspid aortic valve Surgical History History of hernia repair Family History Father CVD (cardiovascular disease) Mother Atrial fibrillation CVD (cardiovascular disease) Social History Alcohol intake: current Alcohol intake frequency: 0-2 drinks per day Alcohol type: beer Patient Tobacco Use Status: Never used Tobacco Review of Systems Const Denies chills, Denies fatigue, Denies fever(s), Denies frequent falls, Denies weakness, Denies weight gain and Denies weight loss ENT Denies dizziness Card Denies chest pain, Denies leg edema, Denies lightheadedness, Denies palpitations, Denies dyspnea and Denies dyspnea on exertion Resp Denies cough, Denies dyspnea and Denies dyspnea on exertion GI Denies hematochezia Musc Denies abnormal gait, Denies muscle weakness, Denies numbness, Denies radiating pain into limb and Denies tingling Neuro Denies abnormal gait, Denies dizziness, Denies frequent falls, Denies numbness, Denies tingling and Denies weakness Endo Denies fatigue and Denies palpitations Physical Exam Vital Signs: Last Vital Signs Pulse 44 L 10/25/23 10:22 BP 142/80 H 10/25/23 10:22 BMI result Body Mass Index 24.1 Const General: comfortable and no acute distress Orientation/consciousness: patient oriented x3 HEENT Other: Unremarkable Head: Yes normal to inspection Neck Neck: Yes normal visual inspection Chest Chest palpation & inspection: normal inspection of the chest Resp Auscultation: clear to auscultation bilaterally Cardio Palpation: normal PMI Heart sounds: S1 normal heart sound present, S2 normal heart sound present, no gallops, Murmur heart sound present systolic II/ and at the right sternal border and no rubs GI Palpation (GI): Soft to palpation Back/Spine/Pelvis Other: unremarkable Skin General skin exam: no rashes or lesions noted Neuro General: patient oriented x3 Extrem General: Yes normal to inspection Psych Mental Status: mental status grossly normal Office Procedures EKG Details: EKG with marked sinus bradycardia at 44/Min; MA prolongation to 232 millisec onds; no significant ST-T changes. [id number], Complete Assessment & Plan Assessment & Plan (1) Atherosclerotic cardiovascular disease: Code(s): I25.10 - Atherosclerotic heart disease of [place] coronary artery without angina pectoris Plan: Cardiac studies reviewed. Coronary CTA from 2022- no clear obstructive disease. In the proximal RCA, stenosis much less evident and measures about 25%. However, 2 new foci of eccentric block more distally in the proximal RCA with minimal stenosis. Mild plaque in the proximal left circumflex and similar to before. Slight progression in the proximal to mid LAD calcification but again minimal stenosis. Trace calcification in the ostial left main but no measurable stenosis. Mild left atrial/left ventricular dilatation and that might be from high levels of endurance activity. Coronary CTA 2019 showed focal narrowing in the mid left circumflex of about 50- 70%; there was also focal narrowing in the proximal RCA of about 50-70%. Echocardiogram from 2021 with LVEF of 59%. Basal inferior hypokinesis. Possible bicuspid aortic valve. Myocardial perfusion imaging study 2020 with mixed ischemia/infarct pattern in the basal inferoseptal/inferolateral wall. In the exercise component, he was able to do as much as 11 minutes. Overall, stable coronary disease with high levels of physical activity. Continue aspirin and statins. Last LDL still higher than ideal but he would like to keep statins the same dose and just follow-up with his own PCP. Suggestion is to go up on the statins to 80 mg daily but he would prefer not to do that. (2) Bicuspid aortic valve: Code(s): Q23.1 - Congenital insufficiency of aortic valve Plan: Follow-up on echocardiogram. (3) Bradycardia: Code(s): R00.1 - Bradycardia, unspecified Plan: EKG shows sinus bradycardia and prolonged MA. Possibly from high vagal tone due to regular exercise. No specific interventions. Coding Level of Care Code Est Pt Level 4 (23205) Diagnoses Atherosclerotic cardiovascular disease I25.10 Bicuspid aortic valve Q23.1 Bradycardia R00.1 CPT Codes EKG - CPT: 05197-[id number], Complete ([id number])
== END 2023-10-25 10:44 | disposition home or self-care (01) ==
PROVIDERS: PCP Internal Medicine; Visit Provider Internal Medicine
DX: I25.10 Atherosclerotic heart disease of native coronary artery without angina pectoris (principal); Q23.1 Congenital insufficiency of aortic valve; R00.1 Bradycardia, unspecified
CPT/HCPCS: 93010; 99214

== ENCOUNTER → 2023-10-25 10:17 | Outpatient (BNVA) | payer MEDICARE, SELFPAY | PROVIDERS: PCP Internal Medicine; Visit Provider Internal Medicine | DX: I25.10 Atherosclerotic heart disease of native coronary artery without angina pectoris (principal); R00.1 Bradycardia, unspecified; Q23.1 Congenital insufficiency of aortic valve; Z79.82 Long term (current) use of aspirin; Z79.899 Other long term (current) drug therapy | CPT/HCPCS: 93005; 99212 ==

== ENCOUNTER 2023-11-27 10:18 | Outpatient (REF) | payer MEDICARE, SELFPAY ==
[2023-11-27 10:55] LABS: Appearance Urine Clear; Color Urine Yellow; Glucose Urine UA Negative (Negative); Leukocyte Esterase Urine Negative (Negative); Nitrite Urine Negative (Negative); PH 5.5 (5.0-9.0); Specific Gravity - Urine 1.025 (1.005-1.025); Urine Blood Negative (Negative); Urine Ketones Negative (Negative); Urine Protein Negative (Neg-Trace)
[2023-11-27 11:05] LABS: MANUAL DIFF FLAG NO
[2023-11-27 11:08] LABS: Basophils Percent Auto 0.3 % (0-2); Eosinophils Absolute Auto 0.1 X10*3/uL (0.0-0.4); Eosinophils Percent Auto 3.1 % (0-4); Hematocrit 43.6 % (42.0-52.0); Lymphocytes Absolute Auto 1.2 X10*3/uL (1.2-4.9); Lymphocytes Percent Auto 37.5 % (20-40); Mean Corpuscular HGB Conc 34.4 g/dl (31.0-36.0); Mean Corpuscular Hemoglobin 31.1 pg (27.0-33.0); Mean Corpuscular Volume 90.5 fL (80.0-98.0); Monocytes Absolute Auto 0.3 X10*3/uL (0.1-1.2); Neutrophils Absolute Auto 1.6 x10*3/uL (2.0-8.3); Neutrophils Percent Auto 50.1 % (45-73); Platelet Count 217 X10*3/uL (160-400); Red Blood Count 4.82 X10*6/uL (4.60-5.80); White Blood Count 3.2 X10*3/uL (4.8-10.8)
[2023-11-27 12:36] LABS: Alanine Aminotransferase 29 U/L (0-40); Albumin Level 4.1 g/dL (3.5-5.0); Alkaline Phosphatase 54 U/L (39-117); Anion Gap 10 (12-20); Aspartate Amino Transferase 37 U/L (5-37); Bilirubin Total 0.9 mg/dL (0.0-1.0); Blood Urea Nitrogen 21 mg/dL (9-16); Calcium 9.3 mg/dL (8.4-10.2); Carbon Dioxide 28 mmol/L (22-29); Chloride 107 mmol/L (96-108); Cholesterol 142 mg/dL (<200); Estimated Glomerular Filt Rate > 60; Glucose Fasting 78 mg/dL (60-99); HDL Cholesterol 52 mg/dL (>40); LDL Cholesterol Calculated 83 mg/dL (<100); Potassium 3.7 mmol/L (3.3-5.1); Sodium 141 mmol/L (135-145); Triglycerides 36 mg/dL (<150)
[2023-11-27 12:42] LABS: Prostate Specific Antigen Scr 1.65 ng/mL (<0.05-4.0)
== END 2023-11-27 10:19 | disposition home or self-care (01) ==
LOC: HO.10HDL 10:18
PROVIDERS: Visit Provider Internal Medicine
DX: I25.10 Atherosclerotic heart disease of native coronary artery without angina pectoris (principal); E78.00 Pure hypercholesterolemia, unspecified; N40.0 Benign prostatic hyperplasia without lower urinary tract symptoms; Z12.5 Encounter for screening for malignant neoplasm of prostate
CPT/HCPCS: 36415; 80053; 80061; 81003; 84153; 85025

== ENCOUNTER 2024-10-17 09:50 | Outpatient (AMB) | payer MEDICARE, SELFPAY ==
[2024-10-17 10:03] VITALS: BP 138/74; PULSE 44; BMI 24.3
--- NOTE | 2024-10-17 10:03 | A.OFFVIS_ITS ---
Vital Signs 10/17/24 10:03 Height 5 ft 7 in Weight 155 lb 3.287 oz BMI 24.3 BP 138/74 Blood Pressure Location Lt brachial Position Sitting Pulse 44 L Intake Visit Reasons: 1 yr f/up Driver Messenger Required: No Accompanied by: Self / Same As Patient Allergies shellfish derived Allergy (Unknown, Verified 04/19/23 10:02) Unknown Medication List - Last Reconciled 10/17/24 by Gordon Huffman MD aspirin 81 mg PO DAILY atorvastatin 40 mg PO DAILY HPI Comments Details: Eliot returns for follow-up regarding coronary disease. Overall, he states he feels fine. Extremely active and runs several miles with no issues. [facility] Medical History Atherosclerotic cardiovascular disease Bicuspid aortic valve Surgical History History of hernia repair Family History Father CVD (cardiovascular disease) Mother Atrial fibrillation CVD (cardiovascular disease) Social History Alcohol intake: current Alcohol intake frequency: 0-2 drinks per day Alcohol type: beer Patient Tobacco Use Status: Never used Tobacco Review of Systems Const Denies chills, Reports fatigue, Denies fever(s), Denies weight gain and Denies weight loss ENT Denies dizziness Card Denies chest pain, Denies leg edema, Denies lightheadedness, Denies palpitations, Denies dyspnea on exertion, Denies orthopnea and Denies other Resp Denies cough and Denies dyspnea on exertion GI Denies hematochezia and Denies change in stool character Musc Denies abnormal gait, Denies muscle weakness, Denies numbness, Denies radiating pain into limb and Denies tingling Neuro Denies abnormal gait, Denies dizziness, Denies numbness and Denies tingling Endo Reports fatigue and Denies palpitations Physical Exam Vital Signs: Last Vital Signs Pulse 44 L 10/17/24 10:03 BP 138/74 10/17/24 10:03 BMI result Body Mass Index 24.3 Const General: comfortable and no acute distress Orientation/consciousness: patient oriented x3 HEENT Other: Unremarkable Head: Yes normal to inspection Neck Neck: Yes normal visual inspection Chest Chest palpation & inspection: normal inspection of the chest Resp Auscultation: clear to auscultation bilaterally Cardio Palpation: normal PMI Heart sounds: S1 normal heart sound present, S2 normal heart sound present, no gallops, Murmur heart sound present systolic II/ and at the right sternal border and no rubs GI Palpation (GI): Soft to palpation Back/Spine/Pelvis Other: unremarkable Skin General skin exam: no rashes or lesions noted Neuro General: patient oriented x3 Extrem General: Yes normal to inspection Psych Mental Status: mental status grossly normal Office Procedures EKG Details: EKG with sinus bradycardia at 44/Min; NV prolongation to 242 millisecond; nonsp ecific ST-T changes. [id number], Complete Assessment & Plan Assessment & Plan (1) Atherosclerotic cardiovascular disease: Code(s): I25.10 - Atherosclerotic heart disease of [place] coronary artery without angina pectoris Category: Medical Plan: Cardiac studies reviewed. Coronary CTA from 2022- no clear obstructive disease. In the proximal RCA, stenosis much less evident and measures about 25%. However, 2 new foci of eccentric block more distally in the proximal RCA with minimal stenosis. Mild plaque in the proximal left circumflex and similar to before. Slight progression in the proximal to mid LAD calcification but again minimal stenosis. Trace calcification in the ostial left main but no measurable stenosis. Mild left atrial/left ventricular dilatation and that might be from high levels of endurance activity. Coronary CTA 2019 showed focal narrowing in the mid left circumflex of about 50- 70%; there was also focal narrowing in the proximal RCA of about 50-70%. Echocardiogram from 2021 with LVEF of 59%. Basal inferior hypokinesis. Possible bicuspid aortic valve. Myocardial perfusion imaging study 2020 with mixed ischemia/infarct pattern in the basal inferoseptal/inferolateral wall. In the exercise component, he was able to do as much as 11 minutes. Overall, stable coronary disease. Continue aspirin/statins. He is due for repeat lipids and other labs through his own PCP. In the past, we have recommended going up on the statin dose but he would like to stay at the current 40 mg daily. Anyway, await repeat labs. (2) Bicuspid aortic valve: Code(s): Q23.1 - Congenital insufficiency of aortic valve Category: Medical Plan: Recheck echocardiogram. (3) Bradycardia: Code(s): R00.1 - Bradycardia, unspecified Category: Medical Plan: EKG shows sinus bradycardia and prolonged NV. Suspect related to high vagal tone from regular exercise. Orders: Orders CA echo transthoracic complete Today I25.10 - Atherosclerotic heart disease of [place] coronary artery without angina pectoris, Q23.1 - Congenital insufficiency of aortic valve Coding Level of Care Code Est Pt Level 4 (01225) Diagnoses Atherosclerotic cardiovascular disease I25.10 Bicuspid aortic valve Q23.1 Bradycardia R00.1 CPT Codes EKG - CPT: 63824-[id number], Complete ([id number])
== END 2024-10-17 10:28 | disposition home or self-care (01) ==
PROVIDERS: PCP Internal Medicine; Visit Provider Internal Medicine
DX: I25.10 Atherosclerotic heart disease of native coronary artery without angina pectoris (principal); Q23.1 Congenital insufficiency of aortic valve; R00.1 Bradycardia, unspecified
CPT/HCPCS: 93010; 99214

== ENCOUNTER → 2024-10-17 09:50 | Outpatient (BNVA) | payer MEDICARE, SELFPAY | PROVIDERS: PCP Internal Medicine; Visit Provider Internal Medicine | DX: I25.10 Atherosclerotic heart disease of native coronary artery without angina pectoris (principal); Q23.1 Congenital insufficiency of aortic valve; R00.1 Bradycardia, unspecified; R94.31 Abnormal electrocardiogram [ECG] [EKG]; I44.0 Atrioventricular block, first degree | CPT/HCPCS: 93005; 99212 ==

== ENCOUNTER → 2024-11-05 09:44 | Outpatient (REF) | payer MEDICARE, SELFPAY ==
--- NOTE | 2024-11-05 09:47 | CA_ITS ---
Transthoracic Echocardiogram Patient (Last, First, Middle): Eliot Tobin E Gender: Male Date of : 1955 Age: 69 Procedure Date: 11/05/2024 Procedure Type: Transthoracic Echocardiogram Location: OP Height: 170.18 cm Weight: 70.31 kg BSA: 1.81 m2 Heart Rate: 49 bpm BP: 138 / 74 mmHg Roller Inspector: SB Referring MD: Gordon Huffman MD Design Lead: Manjeet August MD Symptoms: I25.10 - Atherosclerotic heart disease of [place] coronary artery without... Study Quality: Adequate ECG Rhythm: Bradycardia Conclusions: - 1. Normal LV ejection fraction of 65-70% with impaired filling pattern 2. Mildly dilated left age 3. Mild aortic stenosis 4. No gross pericardial effusion Findings Left Ventricle Normal left ventricular size, thickness, and systolic function. The visually estimated ejection fraction is between 65-70%. Spectral Doppler is indicative of an impaired relaxation filling pattern. Wall Motion Rest Echo Findings The basal inferior segment is hypokinetic. All other scored wall segments showed normal motion. Right Ventricle Normal right ventricular cavity size and systolic function. Atria The left atrium is mildly dilated. There is no evidence of interatrial shunt. The right atrium is normal in size. Aortic Valve There is moderate calcification of the aortic valve. There is mild aortic valve stenosis. The peak aortic velocity is 2.08 m/s with a calculated peak gradient of 17 mmHg. The mean gradient is 9 mmHg. The aortic valve area is 1.76 cm2. There is no aortic valve regurgitation. Mitral Valve There is mild anterior and posterior mitral leaflet thickening. There is trace mitral valve regurgitation. There is no mitral valve stenosis. Pulmonic Valve The pulmonic valve was not well visualized. Tricuspid Valve Normal tricuspid valve structure. There is mild tricuspid valve regurgitation. The right ventricular systolic pressure is normal. The right ventricular systolic pressure is 22 mmHg. Normal right atrial pressure. There is no evidence of pulmonary hypertension. Great Vessels All visible segments of the aorta are normal in size. The pulmonary artery was not well visualized. There is no dilatation of the ascending aorta measuring 3.20 cm. Venous The inferior vena cava is normal in size and collapses greater than 50% with inspiration. Pericardium/Pleural There is no evidence of pericardial effusion. Prior Study Comparison No significant change compared to prior study dated: 06/15/2022. Measurements 2D Linear Measurements IVSd: 1.13 0.6-0.9/0.6-1.0 cm LVIDd: 4.80 3.9-5.3/4.2-5.9 cm LVIDd Index: 2.65 2.4-3.2/2.2-3.1 cm/m2 LVIDs: 3.39 2.0-3.6 cm LVPWd: 0.83 0.7-1.1 cm LA Diam: 4.60 2.7-3.8/3.0-4.0 cm LAIDs Index: 2.54 1.5-2.3 cm/m2 LV Mass: 206.26 67-162/88-224 g LV Mass Index: 113.95 43-95/49-115 g/m2 LVOT Diam: 2.10 3.0+(-)1.3 cm 2D Systolic Function EF 4C: 70.30 >55% EF 2C: 66.10 >55% EF BiP: 70.80 >55% Mitral Valve MV Pk E: 0.63 MV PK A: 0.67 MV Decel Time: 239.00 E/A: 0.90 E'Lateral: 6.89 E'Medial: 4.95 E/E' Med: 12.70 E/E' Lat: 9.10 PHT: 70.00 MVA PHT: 3.14 Decel Preston: 2.63 Aortic Valve AoV Pk Hermes: 2.08 AoV Mn Hermes: 1.39 AoV VTI: 0.47 AoV Pk Grad: 17.00 Aov Mn Grad: 9.00 ALPHONSO Cont.VTI: 1.76 AI Pk Hermes: 3.63 AI Preston: 0.82 LVOT LVOT Pk Hermes: 1.05 LVOT Mn Hermes: 0.76 LVOT VTI: 0.24 LVOT Pk Grad: 4.00 LVOT Mn Grad: 3.00 LVOT Diam: 2.10 LVOT Area: 3.46 Diastolic Function MV Pk E: 0.63 MV Pk A: 0.67 E/A: 0.90 E'Medial: 4.95 E/E' Med: 12.70 E' Laterial: 6.89 E/E' Lat: 9.10 Right Ventricle TAPSE (mm): 24.60 TVS' Hermes: 13.70 Tricuspid Valve TR Pk Hermes: 2.20 TR Pk Grad: 19.00 RA Press: 3.00 RVSP: 22.00 Great Vessels Aorta Sinus of Valsalva: 3.20 2.0-3.5 cm Ao Asc: 3.20 2.1-3.4 cm Ao Arch: 3.40 Pulmonary Valve PV Pk Hermes: 1.01 Peak PV Grad: 4.00 Updated in Other Vendor System with Status of Final Manjeet August MD electronically signed on 11/06/2024 4:29:05 PM with status of Final
== END ==
LOC: HO.CARD 09:44
PROVIDERS: PCP Internal Medicine; Visit Provider Internal Medicine
DX: I25.10 Atherosclerotic heart disease of native coronary artery without angina pectoris (principal); Q23.1 Congenital insufficiency of aortic valve
CPT/HCPCS: 93306

== ENCOUNTER → 2024-11-05 09:47 | Outpatient (BNV) | payer MEDICARE, SELFPAY | PROVIDERS: PCP Internal Medicine; Visit Provider Internal Medicine Cardiovascular Disease | DX: I35.0 Nonrheumatic aortic (valve) stenosis (principal); I35.8 Other nonrheumatic aortic valve disorders; I36.1 Nonrheumatic tricuspid (valve) insufficiency | CPT/HCPCS: 93306 ==

== ENCOUNTER 2025-01-31 07:52 | Outpatient (REF) | payer MEDICARE, SELFPAY ==
--- OUTSIDE RECORDS SUMMARY | 2025-01-31 07:56 | XMS_ITS ---
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 Role Phone Elmo Sol Primary Care Provider Isabell Bedoya [phone] Allergies Allergen (clinical drug ingredient) Drug/Non Drug Allergy documented on EMR Reaction Allergy Type Onset Date Status Cat dander cats (uncoded) Unknown Allergy Acti ve Dog dander dogs (uncoded) Unknown Allergy Acti ve REASON FOR VISIT Pcp-03/18, Painful nail(s) aggravated by shoes causing difficulty standing/walking, Wart(s), Skin problem(s), Painful Toe(s) Medications Medication SIG (Take, Route, Frequency, Duration) Notes Start Date End Date Status Atorvastatin Calcium 40 MG 1 tablet Oral ly Once a day Active Aspirin 81 MG 1 tablet Orally Once a day Active Ammonium Lactate 12 % 1 application Exte rnally to affected areas of dry skin to feet except for between the toes Twice a day for 30 days Active Social History Tobacco Use: Social History Observation Description Date Details (start date - stop date) Never Smoker NA - NA Tobacco Use/Smoking Question Answer Notes Are you a: nonsmoker Additional Findings: Tobacco Non-User Current no n-smoker Alcohol Screen Question Answer Notes Did you have a drink containing alcohol in the p ast year? Yes Points 0 Interpretation Negative Tobacco use other than smoking: Question Answer Notes Are you an other tobacco user? No Problems Problem Type SNOMED Code ICD Code Onset Dates Problem Status W/U Status Risk Notes Problem Plantar wart (63395127) Plantar wart (B07.0) Active confirmed Problem Acquired hammer toe of right foot (6116048911786240) Other hammer toe(s) (acquired), right foot (M20.41) Active confirmed Problem Localized, primary osteoarthritis of the ankle and/or foot (680166204) Arthritis of joint of lesser toe, right (M19.071) Active confirmed Problem Acquired hammer toe of left foot (5636595237307626) Other hammer toe(s) (acquired), left foot (M20.42) Active confirmed Problem Arthritis of joint of lesser toe, left (M19.072) Active confirmed Problem [id number] Hallux valgus of right foot (M20.11) Active confirmed Vital Signs Height 5ft 7in in 08/27/2024 Weight 150 lbs 08/27/2024 BMI 23.49 kg/m2 08/27/2024 Blood pressure systolic 120 mm Hg 08/27/20 24 Blood pressure diastolic 80 mm Hg 024 Encounters Encounter Location Date Provider Diagnosis [facility] [address] [address] 08/27/2024 Isabell Aureliano Onychomycosis B35.1 ; Metatarsalgia, right foot M77.41 ; Pain in right toe(s) M79.674 ; Pain in left toe(s) M79.675 ; Right foot pain M79.671 ; Plantar wart B07.0 ; Xerosis of skin L85.3 ; Other hammer toe(s) (acquired), right foot M20.41 ; Other hammer toe(s) (acquired), left foot M20.42 and Hallux valgus of right foot M20.11 Assessments Encounter Date Diagnosis (ICD Code) Assessment Notes Treatment Notes Treatment Clinical Notes Section Notes 08/27/2024 Onychomycosis (ICD-10 - B35.1) 08/27/2024 Metatarsalgia, right foot (ICD-10 - M77.41) 08/27/2024 Pain in right toe(s) (ICD-10 - M79.674) 08/27/2024 Pain in left toe(s) (ICD-10 - M79.675) 08/27/2024 Right foot pain (ICD-10 - M79.671) 08/27/2024 Plantar wart (ICD-10 - B07.0) 08/27/2024 Xerosis of skin (ICD-10 - L85.3) 08/27/2024 Other hammer toe(s) (acquired), right foot (ICD-10 - M20.41) 08/27/2024 Other hammer toe(s) (acquired), left foot (ICD-10 - M20.42) 08/27/2024 Hallux valgus of right foot (ICD-10 - M20.11) Plan Of Treatment Medication Medication Name Sig Start Date Stop Date Notes Ammonium Lactate 12 % 1 application Exte rnally to affected areas of dry skin to feet except for between the toes Twice a day for 30 days Next Appt Details Follow Up: 2 Months, Reason: Provider Name:Isabell pinon, 04/11/2025 01:15:00 PM, [address] [place] [address], [id number], Procedure Notes * Category Sub-Category Detail Notes Wart Treatment Procedure Verruca, as desc ribed in exam, were debrided to pin-point bleeding margins with sterile 15 surgical blade, silver nitrate chemocautery applied, recomm. immune-boosting meds such as zinc, recomm. follow up with topical chemosurgical agents, Pt defers any other forms of tx - 98109 Debride Nail 6-10 Nail debridement Performance o f this nail treatment by a nonprofessional would put this patients foot and overall health at risk. Therefore, debridement to affected nail(s), as described in exam, was performed extensively to reduce/remove overall nail length, girth, thickness, subungual debris, and necrotic tissue, by manual and/or electrical means through the use of a nail nipper and/or dremel-type card grinder helper, to a more viable healthy nail plate or bed tissue 6-10 nails in total. Silver nitrate was used for any petechial bleeding as necessary. Definitive antifungal treatment options, both pharmaceutical and surgical, have been reviewed and discussed with the patient. The patient solely prefers the use of intermittent/as needed professional debridement services for their nail condition and understands the need for additional periodic treatments to maintain effectiveness in symptomatic relief - 49958 Progress Notes * Eliot TOBIN EDOB:[birth year] (69 yo M)Acc No.[id number]:08/27/2024 Progress Notes Patient:?Eliot TOBIN Provider:?Isabell Bedoya DPM :1955???Age:69 Y???Sex:Male Stanley e:08/27/2024 Address: [address], [facility] Pcp:Nba De La Garza MD Subjective: * Chief Complaints: * ???Pcp-03/18Painful nail(s) aggravated by shoes causing difficulty standing/walkingWart(s)Skin problem(s)Painful Toe(s) * HPI: ???Painful Nails:?Pt States Last PCP Visit:?Date:?03/12/2024 ???Skin problems:?Pt States PCP Visit: ?DATE?03/12/2024 ?Nature:?dryness , scaling.?Location:?B/L .?Duration:?several days.?Course:?worse.?Toe pain:?Nature:?tenderness.?Location:?2-5 B/L feet.?Duration:?a year or more.?Course:?worse.?Aggravated by:?shoes.?Treatments:?rest/alter normal daily activity, change in shoes.? * ROS:?General/Constitutional:?Nausea?denies.?Vomiting?denies.?Hunger Thirst?denies.?Loss appetite?denies.?Chills?denies.?Fatigue?denies.?Fever?denies.?Night Sweats?denies.?Unexplained weight loss?denies.?Unexplained weight gain?denies.?HEENTM:?Dentures?denies.?Dizziness?denies.?Glasses/contacts?denies.?Retinopathy?de nies.?Blurred/double vision?denies.?TMJ?denies.?Discharge/drainage?denies.?Implants?denies.?Sore throat?denies.?Dental implants?denies.?Hard of hearing ?denies.?Difficulty chewing/swallowing/speaking?denies.?Nose bleeds?denies.?Sore mouth?denies.?Respiratory:?On Oxygen?denies.?Pneumonia/pleurisy?denies.?Bronchitis?denies.?Emphysema?denies.?C oughing?denies.?Cough blood?denies.?Shortness of breath?denies.?Wheezing?denies.?Cardiovascular:?Pacemaker?denies.?MVP?denies.?WPW?denies.?CHF?denies.?Heart attack?denies.?Septal defect?denies.?Rapid beat?denies.?Chest pain ?denies.?Atrial Fib.?denies.?Murmur/Palpitations?denies.?Gastrointestinal:?Hemorrhoids?denies.?Stomach/Abdominal pain?denies.?Dark blood stool?denies.?Irritable bowel ?denies.?Constipation?denies.?Diarrhea?denies.?Hematology:?Swelling?denies.?Clots?denies.?Varicose Veins?denies.?Bruising?denies.?Bleeding problem?denies.?Genitourinary:?Blood urine?denies.?Frequent/Painfu/urination/bladder control?denies.?Kidney stones?denies.?Infection (UTI)?denies.?Nephropathy?denies.?sex trans dis (STD)?denies.?Prostate?denies.?Musculoskeletal:?Hammertoes?admits.?Bunions?admits.?Back Pain?denies.?Muscle Cramps/ Resting?admits.?Muscle cramps / walking?denies.?Generalized aches and pains?denies.?Weakness?denies.?Integ.:?Sahu?denies.?Scars?denies.?Corns/calluses?admits.?Ingrown nails?denies.?Painful nails?denies.?Open Sores?denies.?Rashes?denies.?Neurologic:?Difficulty sleeping?denies.?Brain disorder?denies.?Numbness?denies.?Balance trouble?denies.?Confusion?denies.?Fainting/blackouts?denies.?Tingling?denies.?Tr emors?denies.? * Medical History:? * Surgical History:?hernia joaquin monty 1964 * Hospitalization/Major Diagno stic Procedure:?Denies Past Hospitalization * Family History:?Mother: annie marte.?Father: , heart attack, diagnosed with Family history of arthritis, Unspecified heart disease.? * Social History:?Tobacco Use:?Tobacco Use/Smoking?Are you a:?nonsmoker ?Additional Findings: Tobacco Non-User?Current non-smoker ?Tobacco use other than smoking?Are you an other tobacco user??No ???Drugs/Alcohol:?Drugs?Have you used drugs other than those for medical reasons in the past 12 months??No ?Alcohol Screen?Did you have a drink containing alcohol in the past year??Yes ?Points?0 ?Interpretation?Negative ???Miscellaneous:?Caffeine: yes, frequency:. ?Marital status: . ?Occupation: Retired. * Medications:?TakingAspirin 8 1 MG Tablet Chewable 1 tablet Orally Once a day Atorvastatin Calcium 40 MG Tablet 1 tablet Orally Once a day Medication List reviewed and reconciled with the patientTaking Aspirin 81 MG Tablet Chewable 1 tablet Orally Once a day Taking Atorvastatin Calcium 40 MG Tablet 1 tablet Orally Once a day Medication List reviewed and reconciled with the patient * Allergies:?rikkis[Aller gies Verified] Objective: * Vitals:?Ht: 5ft 7in, Wt:150, BMI:23.49, Shoe size: 9-9.5, BP:120/80mm Hg, Ht-cm: 170.18 cm, Wt-k.04 kg. * Examination: ???Nails: ?NAILS are:?Elongated, overgrown, dystrophic, lytic, greater than 3mm thick, discolored and friable with crumbly malodorous subungual debris, with pain on palpation, 1-5 B/L.?Dermatologic: ?SKIN FINDINGS:?Skin shows sign(s) of, dryness, scaling, in a stocking fashion, no fissure(s) present, B/L.?VERRUCA:?Reveals a Single , multi-loculated , mosaic-patterned, round, raised, flat-topped, petechial bleeding papule(s), with cauliflower appearance and interruption of skin lines, pain to lateral compression, and size estimated at 4mm diameter, plantar Forefoot, RIGHT.?Orthopedic: ?MUSCLE STRENGTH:?5/5 all groups in a symmetrical fashion, B/L.?BUNION:?Medially prominent 1st MPJ, Lateral tracking 1st MPJ incompletely reducible, RIGHT.?DIGITAL DEFORMITIES:?Digital contracture, PIPJ, 2-5 B/L, incompl-reducible with WB, or to push-up test, no over, nor underlapping.?MPJ PATHOLOGY:?Plantarflexed MT/MPJ, Pain, swelling, and inflammation to plantar MPJ(s), 5th, RIGHT.?FOOTWEAR:? shoe gear properties exacerbate patients foot/toe deformity.?General Examination: ?GENERAL APPEARANCE:?Reveals a pleasant, alert, well nourished, well- developed, well hydrated individual, who demonstrates proper attention to hygiene/body habitus, and is in no acute distress, Pt serves as own historian for office visit today.?ORIENTED:?person, place, and time.?Vascular: ?DP PULSES(B):?3/4, B/L.?PT PULSES(B):?3/4, B/L.?CAPILLARY FILL TIME:?immediate, all digits, B/L.?TROPHIC CONDITION-TEXTURE/ELASTICITY/TURGOR/HAIR GROWTH(B):?normal, B/L.?TEMPERTURE GRADIENT(C):?normal, warm to cool, proximal to distal, B/L, B/L.?PIGMENTATION:?normal, B/L.?EDEMA(C):?absent, B/L.?Neurological: ?SENSORY:?Neurological exam reveals intact sensorium, pain sensation normal, vibration sensation intact, pinprick sensation is normal in the lower extremities, Pt denies, anesthesia, burning, paresthesia, tingling, B/L.? Assessment: * Assessment: 1.?Metatarsalgia, right foot - M77.41 (Primary)???2.?Onychomycosis - B35.1???3.?Pain in right toe(s) - M79.674???4.?Pain in left toe(s) - M79.675???5.?Right foot pain - M79.671???6.?Plantar wart - B07.0???7.?Xerosis of skin - L85.3???Specify :Acute problem, Uncomplicated (3),Rx Management (4)???8.?Other hammer toe(s) (acquired), right foot - M20.41???9.?Other hammer toe(s) (acquired), left foot - M20.42???10.?Hallux valgus of right foot - M20.11??? Plan: * Treatment: * Procedures:?Debride Nail 6-10:?Nail debridement?Performance of this nail treatment by a nonprofessional would put this patients foot and overall health at risk. Therefore, debridement to affected nail(s), as described in exam, was performed extensively to reduce/remove overall nail length, girth, thickness, subungual debris, and necrotic tissue, by manual and/or electrical means through the use of a nail nipper and/or dremel-type card grinder helper, to a more viable healthy nail plate or bed tissue 6-10 nails in total. Silver nitrate was used for any petechial bleeding as necessary. Definitive antifungal treatment options, both pharmaceutical and surgical, have been reviewed and discussed with the patient. The patient solely prefers the use of intermittent/as needed professional debridement services for their nail condition and understands the need for additional periodic treatments to maintain effectiveness in symptomatic relief - 40656.?Wart Treatment:?Procedure?Verruca, as described in exam, were debrided to pin-point bleeding margins with sterile 15 surgical blade, silver nitrate chemocautery applied, recomm. immune-boosting meds such as zinc, recomm. follow up with topical chemosurgical agents, Pt defers any other forms of tx - 55511.? * Procedure Codes:?11461 DEBRI DE NAIL, 6 OR MORE, Modifiers: XS 80742 Wart Destruction, 1-14, Modifiers: XS * Preventive Medicine:? ??Counseling:?Discussion:?-04: Office or other outpatient visit for the evaluation and management of a new patient, which required a medically appropriate history and/or examination and MODERATE level of DECISION MAKING for: 1 OR MORE CHRONIC PROBLEM(S) THATS WORSENING, 2 STABLE CHRONIC PROBLEMS, A NEWLY DIAGNOSED PROBLEM WITH UNCERTAIN PROGNOSIS, AN ACUTE COMPLICATED INJURY WITH MULTIPLE TREATMENT OPTIONS, OR AN ACUTE PROBLEM WITH ACCOMPANYING SYSTEMIC SYMPTOMS, THAT POSE(S) A MODERATE RISK OF MORBIDITY. THIS CONDITION MAY ALSO INCLUDE RX DRUG MANAGEMENT, OR A DECISON FOR MINOR SURGERY. The visit on the day of the encounter encompassed interpreting the data and educating the patient as to the nature of their condition, treatment options available according to their individual PMH, meds, allergies, and overall health/living conditions, as well as any potential risks or complications that may occur from a failure to adhere to, and participate in, the recommended course of therapy. The discussion included a complete verbal, and/or written explanation of the examination results, any x-rays taken, the proposed diagnosis, and outline of the treatment plan. A schedule for future care needs was also explained. The patient verbalized an understanding of the instructions at this time and agreed to be an active participant in their treatment. If the patient should think of any questions or concerns after the visit, I have encouraged the patient to call the office.?BioMech.:?I discussed the Pts foot biomechanics with them and how it relates to their problem.?Digital Surgery:?Digital surgery was discussed with the patient, including the risks of surgery(below), vs not having surgery (persistent pain, deformity, risk for skin ulceration/infection, loss of toe), the potential surg complications, the anesthesia, and the usual post-op course. No guarentees were given. We discussed the potential procedure complications including, but not limited to: pain, swelling, bleeding, scarring, numbness, infection, delayed/non healing, floppy/unstable/shorthened toe, recurrence, failure of the procedure, overcorrection leading to plantarflexed/downward positioned toe, recurrence, need for further surgery, as well as the possibility for loss of the toe itself. We discussed the use of local anesthesia, and the usual post-op course for healing. No guarentees were given. The patient verbally indicated a full understanding of the above conversation, and any other of their questions were answered to their satisfaction. Alternatives to the procedure were also discussed, including conservative care. I also discussed the usual post-operative course and gave no guarantees regarding outcome.?Digital Treatment:?I explained to the patient the possible etiologies of Hammertoes, including genetics/foot type/shoegear/activity level/exercise routine and the risks/benefits of all the different treatment options for pain including: No treatment at all, Rest, Ice, New/supportive/wider/deeper Shoegear, Digital Padding/Strapping/Taping/Bracing/Gel protective sleeves, Foot/Ankle AFO Bracing, Stretching exercises, Deep Tissue Massage, Arch support/shoe inserts with splay metatarsal padding, and Custom orthoses. I insisted that any digital devices be removed daily and not worn overnight for safety. The patient is to carefully examine the toes daily for any skin irritation while using any splinting or padding device. The advantages and disadvantages of each option were discussed and the patients questions re: shoegear, padding, custom vs prefabricated inserts, activity level, and consistency in home treatment regimens for optimal success were answered to their verbally confirmed satisfaction.?Discussion for Bunion sx:?We elected to try conservative treatment at the present time as pt has no pain with bunions or hammertoes.?Metatarsalgea:?I explained to the patient the possible etiologies of their Metatarsalgea Foot pain, including foot type/shoegear/activity level/exercise routine and the risks/benefits of all the different treatment options for pain including: No treatment at all, Rest, Ice, NSAIDs(only if well tolerated after meals), New/supportive Shoegear, Strappings and Tapings, Foot/Ankle AFO Bracing, Stretching exercises, Deep Tissue Massage, Arch support/shoe inserts, Custom orthoses, Topical analgesics including Aspercream/Voltaren gel, Physical Therapy, Cortisone injection therapy, EPAT/ESWT. Advantages and disadvantages of each option were discussed and the patients questions re: shoegear, custom vs prefabricated inserts, activity level, PO vs Topical medications (and their respective potential complications/drug interactions/side effects), and consistency in home treatment regimens for optimal success were answered to their verbally confirmed satisfaction.?Orthotics:?I explained to the patient the benefits of OT use. I explained that orthoses are medically necessary to decrease the foot pain through proper mechanical control, support of their foot, decrease pain associated with the plantar lesion, decrease pain under the painful metatarsal by supplementing the soft tissue, cushion the forefoot by supplementing the soft tissue, the delay of the formation of bunion, the delay of the formation of hammertoes, The patient was asked to seriously consider this important treatment option.?Shoe Gear Counseling:?The patient and I reviewed the types of shoes they should be wearing. My recommendation included obtaining a well-fitted shoe with a good supportive, non-foldable nor twistable sole, plenty of toe/room for the forefoot, and proper arch support. Based on todays examination, I recommended the patient look for new shoes, by having their feet professionally measured. We discussed that generally the best time of the day for a shoe fitting is the afternoon. Different shoes types and brands to best match the patients occupation and vocation were discussed. Specific brand selection will be up to the patient, their individual foot condition/deformities, and fit. The patient and I reviewed the standard new shoe break in period by wearing them for a few hours a day while checking for redness or sores as wear time is increased. The patient verbally confirmed to understanding the information discussed.?Xerosis:?The patient was counseled on the diagnosis, potential etiologies, and treatment options for their skin condition. We discussed the risks and benefits of each option from performing no treatment, to utilizing OTC topical skin creams/ointments, to utilizing prescription topical creams/ointments, to utilizing customized compounded topical medications and use of nocturnal occlusion with any/all previously detailed therapies. We discussed the advantages and disadvantages of each possible treatment and importance for adherence to all the recommended therapies for optimum success and avoid potential complications such as open sore/infection/possible hospitalization. We discussed the potential effectiveness of each topical preparation as well as each ones possible side effects and/or patient medication interactions. Patient questions re: use, dosage, successful outcomes, and application consistency were reviewed and the patient verbalized that all answers were clearly understood. The patient has decided to apply Rx skin creams to their feet save the interspaces while paying special attention to the heels. Such was sent to their pharmacy at the time of visit.? * Follow Up:?2 Months * Images: * Sign off status: Completed true * Provider:?Isabell Bedoya DPM Date:?11/2023 Generated for Smitha medina/Nasrin/Jason on:?01/31/2025 07:55 AM EDT History and Physical Notes * HPI (History of Present Illness) Category Sub-Category Detail Notes Category Not es Toe pain Nature: tenderness Location: 2-5 B/L feet Duration: a year or more Course: worse Aggravated by: shoes Treatments: rest/alter normal da dai activity, change in shoes Painful Nails Pt States Last PCP Visit: Date:: 03/12/2024 Skin problems Nature: dryness , scaling Location: B/L Duration: several days Course: worse Pt States PCP Visit: DATE: 03/12/2024 Examination Category Sub-Category Detail Notes Category Not es Neurological SENSORY: Neurological exa m reveals intact sensorium, pain sensation normal, vibration sensation intact, pinprick sensation is normal in the lower extremities, Pt denies, anesthesia, burning, paresthesia, tingling, B/L Dermatologic SKIN FINDINGS: Skin shows sign( s) of, dryness, scaling, in a stocking fashion, no fissure(s) present, B/L VERRUCA: Reveals a Single , m ulti-loculated , mosaic-patterned, round, raised, flat-topped, petechial bleeding papule(s), with cauliflower appearance and interruption of skin lines, pain to lateral compression, and size estimated at 4mm diameter, plantar Forefoot, RIGHT Orthopedic BUNION: Medially promine nt 1st MPJ, Lateral tracking 1st MPJ incompletely reducible, RIGHT FOOTWEAR EVALUATION: shoe gear propertie s exacerbate patients foot/toe deformity DIGITAL DEFORMITIES: Digital contracture , PIPJ, 2-5 B/L, incompl-reducible with WB, or to push-up test, no over, nor underlapping MPJ PATHOLOGY: Plantarflexed MT/MPJ , Pain, swelling, and inflammation to plantar MPJ(s), 5th, RIGHT MUSCLE STRENGTH: 5/5 all groups in a symmetrical fashion, B/L General Examination GENERAL APPEARANCE: Reveals a pleasant, alert, well nourished, well-developed, well hydrated individual, who demonstrates proper attention to hygiene/body habitus, and is in no acute distress, Pt serves as own historian for office visit today ORIENTED: person, place, and t tory Vascular DP PULSES (B): 3/4, B/L PT PULSES (B): 3/4, B/L CAPILLARY FILL TIME: immediate, all digi ts, B/L TEMPERTURE GRADIENT (C): normal, warm to cool, proximal to distal, B/L, B/L TROPHIC CONDITION-TEXTURE/ELASTICITY/TURGOR/HAIR GROWTH (B): normal, B/L EDEMA (C): absent, B/L PIGMENTATION: normal, B/L Nails NAILS are: Elongated, overg rown, dystrophic, lytic, greater than 3mm thick, discolored and friable with crumbly malodorous subungual debris, with pain on palpation, 1-5 B/L
--- OUTSIDE RECORDS SUMMARY | 2025-01-31 07:56 | XMS_ITS ---
Author Organization [facility] Address [address] [place] [address] Care Team Providers Care Mushroom Press Operator Name Role Phone Elmo Sol Primary Care Provider Isabell Bedoya [phone] Allergies Allergen (clinical drug ingredient) Drug/Non Drug Allergy documented on EMR Reaction Allergy Type Onset Date Status Cat dander cats (uncoded) Unknown Allergy Acti ve Dog dander dogs (uncoded) Unknown Allergy Acti ve REASON FOR VISIT Painful nail(s) aggravated by shoes causing difficulty standing/walking, Wart(s), Skin Problem Medications Medication SIG (Take, Route, Frequency, Duration) Notes Start Date End Date Status Ammonium Lactate 12 % 1 application Exte rnally to affected areas of dry skin to feet except for between the toes Twice a day for 30 days Active Ciclopirox Olamine 0.77 % 1 application Externally Twice a day to skin of feet including between the toes for 30 days Active Aspirin 81 MG 1 tablet Orally Once a day Active Atorvastatin Calcium 40 MG 1 tablet Oral ly Once a day Active Social History Tobacco Use: Social History Observation Description Date Details (start date - stop date) Never Smoker NA - NA Tobacco Use/Smoking Question Answer Notes Are you a: nonsmoker Additional Findings: Tobacco Non-User Current no n-smoker Tobacco use other than smoking: Question Answer Notes Are you an other tobacco user? No Vital Signs Height 5ft7in in 11/06/2024 Weight 150 lbs 11/06/2024 BMI 23.49 kg/m2 11/06/2024 Blood pressure systolic 120 mm Hg 11/06/19 25 Blood pressure diastolic 80 mm Hg 025 Encounters Encounter Location Date Provider Diagnosis [facility] [address] [address] 11/06/2024 Isabell Tashakathrin Onychomycosis B35.1 ; Tinea pedis of both feet B35.3 ; Pain in right toe(s) M79.674 ; Pain in left toe(s) M79.675 ; Right foot pain M79.671 ; Plantar wart B07.0 and Xerosis of skin L85.3 Assessments Encounter Date Diagnosis (ICD Code) Assessment Notes Treatment Notes Treatment Clinical Notes Section Notes 11/06/2024 Onychomycosis (ICD-10 - B35.1) 11/06/2024 Tinea pedis of both feet (ICD-10 - B35.3) 11/06/2024 Pain in right toe(s) (ICD-10 - M79.674) 11/06/2024 Pain in left toe(s) (ICD-10 - M79.675) 11/06/2024 Right foot pain (ICD-10 - M79.671) 11/06/2024 Plantar wart (ICD-10 - B07.0) 11/06/2024 Xerosis of skin (ICD-10 - L85.3) Plan Of Treatment Medication Medication Name Sig Start Date Stop Date Notes Ammonium Lactate 12 % 1 application Exte rnally to affected areas of dry skin to feet except for between the toes Twice a day for 30 days Ciclopirox Olamine 0.77 % 1 application Externally Twice a day to skin of feet including between the toes for 30 days Next Appt Details Follow Up: 2 Months, Reason: Provider Name:Isabellgwendolyn pinon, 04/11/2025 01:15:00 PM, [address] [place], [address], Procedure Notes * Category Sub-Category Detail Notes Wart Treatment Procedure Verruca, as desc ribed in exam, were debrided to pin-point bleeding margins with sterile 15 surgical blade, silver nitrate chemocautery applied, recomm. immune-boosting meds such as zinc, recomm. follow up with topical chemosurgical agents, Pt defers any other forms of tx - 95082 Debride Nail 6-10 Nail debridement Due to the cl inical pathology outlined in the exam findings, performance of this nail treatment is medically necessary as its management by an unskilled/untrained nonprofessional would put this patients foot and overall health at risk. Therefore, debridement to affected nail(s), as described in exam ( TA, T1, T2, T3, T4, T5, T6, T7, T8, T9, ), was performed exclusively by the physician of record to reduce/remove overall nail length, girth, thickness, subungual debris, and necrotic tissue, by manual and/or electrical means through the use of a nail nipper and/or dremel-type floor grinder, to a more viable healthy nail plate [...] to maintain effectiveness in symptomatic relief - 72662 Recommend Funginail OTC antifungal topical Progress Notes * Eliot TOBIN EDOB:[birth year] (69 yo M)Acc No.[id number]:11/06/2024 Progress Note Patient:?STEPHANIE Eliot Marte Provider:?Isabell Bedoya DPM :1955???Age:69 Y???Sex:Male Stanley e:11/06/2024 Address: [address], [place], [place] Pcp:Nba De La Garza MD Subjective: * Chief Complaints: * ???Painful nail(s) aggravate d by shoes causing difficulty standing/walkingWart(s)Skin Problem * HPI: ???Painful Nails:?Pt States Last PCP Visit:?Date:?09/25/2024 ???Skin problems:?Pt States PCP Visit: ?DATE?09/25/2024 ?Nature:?dryness , scaling.?Location:?B/L .?Duration:?a few months.?Course:?, unchanged.?Treatments:?medication ( AM Lactin ).? * ROS:?General/Constitutional:?Nausea?denies.?Vomiting?denies.?Hunger Thirst?denies.?Loss appetite?denies.?Chills?denies.?Fatigue?denies.?Fever?denies.?Night Sweats?denies.?Unexplained weight loss?denies.?Unexplained [...] annie marte.?Father: , heart attack, diagnosed with Unspecified heart disease, Family history of arthritis.? * Social History:?Tobacco Use:?Tobacco Use/Smoking?Are you a:?nonsmoker ?Additional Findings: Tobacco Non-User?Current non-smoker ?Tobacco use other than smoking?Are you an other tobacco user??No ???Miscellaneous:?Caffeine: yes, frequency:. ?Children: yes. ?Exercise: no. ?Marital status: . 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 * Medications:?TakingAspirin 8 1 MG Tablet Chewable 1 tablet Orally Once a day Atorvastatin Calcium 40 MG Tablet 1 tablet Orally Once a day Ammonium Lactate 12 % Cream 1 application Externally to affected areas of dry skin to feet except for between the toes Twice a day Medication List reviewed and reconciled with the patientTaking Aspirin 81 MG Tablet Chewable 1 tablet Orally Once a day Taking Atorvastatin Calcium 40 MG Tablet 1 tablet Orally Once a day Taking Ammonium Lactate 12 % Cream 1 application Externally to affected areas of dry skin to feet except for between the toes Twice a day Medication List reviewed and reconciled with the patient * Allergies:?catsdogsyes[Aller gies Verified] Objective: * Vitals:?Ht: 5ft7in, Wt:150, BMI:23.49, Shoe size: 9-9.5, BP:120/80mm Hg, Ht-cm: 170.18 cm, Wt-k.04 kg. * Examination: ???Nails: ?NAILS are:?Elongated, overgrown, dystrophic, lytic, greater than 3mm thick, discolored and friable with crumbly malodorous subungual debris, with pain on palpation,, TA, T1, T2, T3, T4, T5, T6, T7, T8, T9.?Dermatologic: ?SKIN FINDINGS:?Skin STILL, shows sign(s) of, dryness, scaling, in a stocking fashion, no fissure(s) present, B/L.?VERRUCA:?Reveals a Single , multi-loculated , mosaic-patterned, round, raised, flat-topped, petechial bleeding papule(s), with cauliflower appearance and interruption of skin lines, pain to lateral compression, and size estimated at 2mm diameter, plantar Forefoot, RIGHT.?Orthopedic: ?MUSCLE STRENGTH:?5/5 all groups in a symmetrical fashion, B/L.?BUNION:?Medially prominent 1st MPJ, Lateral tracking 1st MPJ incompletely reducible, RIGHT.?DIGITAL DEFORMITIES:?Digital contracture, PIPJ, 2-5 B/L, incompl-reducible with WB, or to push-up test, no over, nor underlapping.?FOOTWEAR:? shoe gear properties exacerbate patients foot/toe deformity.?General Examination: ?GENERAL APPEARANCE:?Reveals a pleasant, alert, well nourished, well- developed, well hydrated individual, who demonstrates proper attention to hygiene/body habitus, and is in no acute distress, Pt serves as own historian for office visit today.?ORIENTED:?person, place, and time.?Vascular: ?DP PULSES (B):?3/4, B/L.?PT PULSES (B):?3/4, B/L.?CAPILLARY FILL TIME:?immediate, all digits, B/L.?TROPHIC CONDITION-TEXTURE/ELASTICITY/TURGOR/HAIR GROWTH (B):?normal, B/L.?TEMPERTURE GRADIENT (C):?normal, warm to cool, proximal to distal, B/L, B/L.?PIGMENTATION:?normal, B/L.?EDEMA (C):?absent, B/L.?Neurological: ?SENSORY:?Neurological exam reveals intact sensorium, pain sensation normal, vibration sensation intact, pinprick sensation is normal in the lower extremities, Pt denies, anesthesia, burning, paresthesia, tingling, B/L.? Assessment: * Assessment: 1.?Onychomycosis - B35.1???2 .?Tinea pedis of both feet - B35.3 (Primary)???Specify :Acute problem, Uncomplicated (3),Rx drug management (4)???3.?Pain in right toe(s) - M79.674???4.?Pain in left toe(s) - M79.675???5.?Right foot pain - M79.671???6.?Plantar wart - B07.0???7.?Xerosis of skin - L85.3???Specify :Acute problem, Uncomplicated (3),Rx Management (4)??? Plan: * Treatment: 2.?Xerosis of skin? Start Ammonium Lactate Cream, 12 %, 1 application, Externally to affected areas of dry skin to feet except for between the toes, Twice a day, 30 days, 140, Refills 2.?? * Procedures:?Debride Nail 6-10:?Nail debridement?Due to the clinical pathology outlined in the exam findings, performance of this nail treatment is medically necessary as its management by an unskilled/untrained nonprofessional would put this patients foot and overall health at risk. Therefore, debridement to affected nail(s), as described in exam ( TA, T1, T2, T3, T4, T5, T6, T7, T8, T9, ), was performed exclusively by the physician of record to reduce/remove overall nail length, girth, thickness, subungual debris, and necrotic tissue, by manual and/or electrical means through the use of a nail nipper and/or dremel-type floor grinder, to a more viable healthy nail plate or bed tissue 6- 10 nails in total. Silver nitrate was used for any petechial bleeding as necessary. Definitive antifungal treatment options, both pharmaceutical and surgical, have been reviewed and discussed with the patient. The patient solely prefers the use of intermittent/as needed professional debridement services for their nail condition and understands the need for additional periodic treatments to maintain effectiveness in symptomatic relief - 36805 Recommend Funginail OTC antifungal topical.?Wart Treatment:?Procedure?Verruca, as described in exam, were debrided to pin-point bleeding margins with sterile 15 surgical blade, silver nitrate chemocautery applied, recomm. immune-boosting meds such as zinc, recomm. follow up with topical chemosurgical agents, Pt defers any other forms of tx - 80851.? * Procedure Codes:?38706 DEBRI DE NAIL, 6 OR MORE, Modifiers: XS 59717 Wart Destruction, 1-14, Modifiers: XS * Preventive Medicine:? ??Counseling:?Discussion:?-13: Office or other outpatient visit for the evaluation and management of an established patient, which required a medically appropriate history and/or examination and LOW level of DECISION MAKING for: 1 STABLE ACUTE UNCOMPLICATED PROBLEM, 2 OR MORE MINOR PROBLEMS, OR 1 STABLE CHRONIC PROBLEM, THAT POSE(S) A LOW RISK FOR MORBIDITY/MORTALITY. The visit on the day of the [...] have encouraged the patient to call the office.?Tinea Pedis:?The patient was counseled on the diagnosis, potential etiologies, and treatment options for their skin condition. We discussed the risks and benefits of each option from performing no treatment, to utilizing OTC topical skin creams, prescription topical creams, customized compounded topical medications, and, if necessary, to utilize oral antifungal therapy. We discussed the advantages and disadvantages of each possible treatment and importance for adherence to all the recommended therapies for optimum success and avoid potential complications such as open sore/infection/possible hospitalization. We discussed the potential effectiveness of each topical preparation as well as each ones possible side effects and/or patient medication interactions if oral therapy is selected. Patient questions re: the advantages and disadvantages of each treatment choice, medication use/dosage, successful outcomes, and application consistency were reviewed and the patient verbalized that all answers were clearly understood. The patient was told they can help alleviate symptoms by utilizing moisture absorbant innersoles with activated charcoal and baking soda, applying antifungal sprays daily, aerating toe web spaces at night by putting cotton or lambs wool between the toes, alternating shoe gear daily if possible so they can dry out, changing socks at least once during the day, wearing well-ventilated shoes or sandals. The patient has decided to apply antifungal skin creams to their feet as directed. Rx was sent to their pharmacy at the time of visit.? ??Screening/Special Tests:?Fall Risk?Screening:?No falls in the past year ?FALLS: Screening for Future Fall Risk?Have you had any falls with injury in the past year??No * Follow Up:?2 Months * Images: * Sign off status: Completed true * Provider:?Isabell Bedoya DPM Date:?08/2025 Generated for Smitha medina/Nasrin/Jason on:?01/31/2025 07:55 AM EDT History and Physical Notes * HPI (History of Present Illness) Category Sub-Category Detail Notes Category Not es Painful Nails Pt States Last PCP Visit: Date:: 09/25/2024 Skin problems Nature: dryness , scaling Location: B/L Duration: a few months Course: , unchanged Treatments: medication ( AM Lact in ) Pt States PCP Visit: DATE: 09/25/2024 Examination Category Sub-Category Detail Notes Category Not es Neurological SENSORY: Neurological exa m reveals intact sensorium, pain sensation normal, vibration sensation intact, pinprick sensation is normal in the lower extremities, Pt denies, anesthesia, burning, paresthesia, tingling, B/L Dermatologic SKIN FINDINGS: Skin STILL, show s sign(s) of, dryness, scaling, in a stocking fashion, no fissure(s) present, B/L VERRUCA: Reveals a Single , m ulti-loculated , mosaic-patterned, round, raised, flat-topped, petechial bleeding papule(s), with cauliflower appearance and interruption of skin lines, pain to lateral compression, and size estimated at 2mm diameter, plantar Forefoot, RIGHT Orthopedic BUNION: Medially promine nt 1st MPJ, Lateral tracking 1st MPJ incompletely reducible, RIGHT FOOTWEAR EVALUATION: shoe gear propertie s exacerbate patients foot/toe deformity DIGITAL DEFORMITIES: Digital contracture , PIPJ, 2-5 B/L, incompl-reducible with WB, or to push-up test, no over, nor underlapping MUSCLE STRENGTH: 5/5 all groups in a [...] crumbly malodorous subungual debris, with pain on palpation,, TA, T1, T2, T3, T4, T5, T6, T7, T8, T9
--- OUTSIDE RECORDS SUMMARY | 2025-01-31 07:56 | XMS_ITS | Patient Health Record ---
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 Name Role Phone Elmo Sol Primary Care Provider Isabell Bedoya [phone] Allergies Allergen (clinical drug ingredient) Drug/Non Drug Allergy documented on EMR Reaction Allergy Type Onset Date Status Cat dander cats (uncoded) Unknown Allergy Acti ve Dog dander dogs (uncoded) Unknown Allergy Acti ve Reason For Referral No Information Medications Medication SIG (Take, Route, Frequency, Duration) Notes Start Date End Date Status Atorvastatin Calcium 40 MG 1 tablet Oral ly Once a day Active Ammonium Lactate 12 [...] 1 tablet Orally Once a day Active Social History Tobacco [...] Problem Status W/U Status Risk Notes Problem Acquired hammer toe of right foot (7791807243899236) Other hammer toe(s) (acquired), right foot (M20.41) Active confirmed Problem Acquired hammer toe of left foot (2077013556186045) Other hammer toe(s) (acquired), left foot (M20.42) Active confirmed Problem Plantar wart (41611795) Plantar wart (B07.0) Active confirmed Problem [id number] Hallux valgus of right foot (M20.11) Active confirmed Problem Localized, primary osteoarthritis of the ankle and/or foot (178328580) Arthritis of joint of lesser toe, left (M19.072) Active confirmed Problem Localized, primary osteoarthritis of the ankle and/or foot (205261134) Arthritis of joint of lesser toe, right (M19.071) Active confirmed Vital Signs Blood pressure diastolic 85 mm Hg 01/28/2025 Height 5ft7in in 01/28/2025 Blood pressure systolic 120 mm Hg 01/28/2025 Weight 150 lbs 01/28/2025 BMI 23.49 kg/m2 01/28/2025 Encounters Encounter Location Date Provider Diagnosis [address] [address] 08/27/2024 Isabell Perica Onychomycosis B35.1 ; Metatarsalgia, right foot M77.41 ; Pain in right toe(s) M79.674 ; Pain in left toe(s) M79.675 ; Right foot pain M79.671 ; Plantar wart B07.0 ; Xerosis of skin L85.3 ; Other hammer toe(s) (acquired), right foot M20.41 ; Other hammer toe(s) (acquired), left foot M20.42 and Hallux valgus of right foot M20.[address] [address] 11/06/2024 Isabell Perica Onychomycosis B35.1 ; Tinea pedis of both feet B35.3 ; Pain in right toe(s) M79.674 ; Pain in left toe(s) M79.675 ; Right foot pain M79.671 ; Plantar wart B07.0 and Xerosis of skin L85.[address] [address] 01/28/2025 Isabell Bedoya Onychomycosis B35.1 ; Pain in right toe(s) M79.674 ; Pain in left toe(s) M79.675 ; Right foot pain M79.671 and Plantar wart B07.0 Assessments Encounter Date Diagnosis (ICD Code) Assessment Notes Treatment Notes Treatment Clinical Notes Section Notes 08/27/2024 Metatarsalgia, right foot (ICD-10 - M77.41) 08/27/2024 Onychomycosis (ICD-10 - B35.1) 11/06/2024 Onychomycosis (ICD-10 - B35.1) 11/06/2024 Tinea pedis of both feet (ICD-10 - B35.3) 01/28/2025 Pain in right toe(s) (ICD-10 - M79.674) 01/28/2025 Onychomycosis (ICD-10 - B35.1) 01/28/2025 Pain in left toe(s) (ICD-10 - M79.675) 11/06/2024 Pain in right toe(s) (ICD-10 - M79.674) 08/27/2024 Pain in right toe(s) (ICD-10 - M79.674) 08/27/2024 Pain in left toe(s) (ICD-10 - M79.675) 11/06/2024 Pain in left toe(s) (ICD-10 - M79.675) 01/28/2025 Right foot pain (ICD-10 - M79.671) 11/06/2024 Right foot pain (ICD-10 - M79.671) 01/28/2025 Plantar wart (ICD-10 - B07.0) 08/27/2024 Right foot pain (ICD-10 - M79.671) 08/27/2024 Plantar wart (ICD-10 - B07.0) 11/06/2024 Plantar wart (ICD-10 - B07.0) 11/06/2024 Xerosis of skin (ICD-10 - L85.3) 08/27/2024 Xerosis of skin (ICD-10 - L85.3) 08/27/2024 Other hammer toe(s) (acquired), right foot (ICD-10 - M20.41) 08/27/2024 Other hammer toe(s) (acquired), left foot (ICD-10 - M20.42) 08/27/2024 Hallux valgus of right foot (ICD-10 - M20.11) Plan Of Treatment Next Appt Details Provider Name:Isabell pinon, 04/11/2025 01:15:00 PM, [address] [place] [address], [phone], Insurance Providers Payer Name Payer Address Payer Phone Subscriber Number Group Number Insured Name Patient Relationship to Insured Coverage Start Date Coverage End Date [employer] [address] [place] [phone] [id number] Eliot Tobin Self - patient is the insured 4 Medical (General) History Medical History History ICD Code CAD (Cholesterol) covid-19 Heart disease Measles Mumps Chicken pox Surgical History Surgery Date(Month/Year) hernia surgery 1962
--- OUTSIDE RECORDS SUMMARY | 2025-01-31 07:56 | XMS_ITS ---
Author Organization [facility] Address [address] [place] [address] Care Team Providers Care Machine Loader Name Role Phone Elmo Sol Primary Care Provider [phone] Isabell Bedoya [phone] Allergies Allergen (clinical drug ingredient) Drug/Non Drug Allergy documented on EMR Reaction Allergy Type Onset Date Status Cat dander cats (uncoded) Unknown Allergy Acti ve Dog dander dogs (uncoded) Unknown Allergy Acti ve REASON FOR VISIT Painful nail(s) aggravated by shoes causing difficulty standing/walking, Wart(s) Medications Medication SIG (Take, Route, Frequency, Duration) [...] user? No Vital Signs Height 5ft7in in 01/28/2025 Weight 150 lbs 01/28/2025 BMI 23.49 kg/m2 01/28/2025 Blood pressure systolic 120 mm Hg 01/29/20 25 Blood pressure diastolic 85 mm Hg 025 Encounters Encounter Location Date Provider Diagnosis [facility] [address] [place] [address] 01/28/2025 Isabell Bedoya Onychomycosis B35.1 ; Pain in right toe(s) M79.674 ; Pain in left toe(s) M79.675 ; Right foot pain M79.671 and Plantar wart B07.0 Assessments Encounter Date Diagnosis (ICD Code) Assessment Notes Treatment Notes Treatment Clinical Notes Section Notes 01/28/2025 Onychomycosis (ICD-10 - B35.1) 01/28/2025 Pain in right toe(s) (ICD-10 - M79.674) 01/28/2025 Pain in left toe(s) (ICD-10 - M79.675) 01/28/2025 Right foot pain (ICD-10 - M79.671) 01/28/2025 Plantar wart (ICD-10 - B07.0) Plan Of Treatment Next Appt Details Follow Up: 2 Months, Reason: Provider Name:Isabell pinon, 04/11/2025 01:15:00 PM, [address] [place] [address], [phone], Procedure Notes * Category Sub-Category Detail Notes Wart Treatment Procedure Verruca, as desc ribed in exam, were debrided to pin-point bleeding margins with sterile 15 surgical blade, silver nitrate chemocautery applied, recomm. immune-boosting meds such as zinc, recomm. follow up with topical chemosurgical agents, Pt defers any other forms of tx - 45127 Debride Nail 6-10 Nail debridement Due to [...] use of a nail nipper and/or dremel-type air grinder, to a more viable healthy nail [...] to maintain effectiveness in symptomatic relief - 09704 Recommend Funginail OTC antifungal topical Progress Notes * STEPHANIE Eliot EDOB:[birth year] (69 yo M)Acc No.[id number]:01/28/2025 Progress Note Patient:?Eliot TOBIN E Provider:?Isabell Bedoya DPM :1955???Age:69 Y???Sex:Male Stanley e:01/28/2025 Address: [address], [facility], [facility] Pcp:Elmo Sol Subjective: * Chief Complaints: * ???Painful nail(s) aggravate d by shoes causing difficulty standing/walkingWart(s) * HPI: ???Painful Nails:?Pt States Last PCP Visit:?Date:?12/12/2024 ???Skin problems:?Pt States PCP Visit: ?DATE?12/12/2024 * ROS:?General/Constitutional:?Nausea?denies.?Vomiting?denies.?Hunger Thirst?denies.?Loss appetite?denies.?Chills?denies.?Fatigue?denies.?Fever?denies.?Night Sweats?denies.?Unexplained weight loss?denies.?Unexplained [...] Procedure:?Denies Past Hospitalization * Family History:?Mother: annie pedraza?Father: , heart attack, diagnosed with Unspecified heart disease, Family history of arthritis.? * Social History:?Tobacco Use:?Tobacco Use/Smoking?Are you a:?nonsmoker ?Additional Findings: Tobacco Non-User?Current non-smoker ?Tobacco use other than smoking?Are you an other tobacco user??No ???Miscellaneous:?Caffeine: yes, frequency:. ?Children: yes. ?Exercise: no. ?Marital status: . ?Occupation: Retired, [employer]. * Medications:?TakingAspirin 8 1 MG Tablet Chewable 1 tablet Orally Once a day Atorvastatin Calcium 40 MG Tablet 1 tablet Orally Once a day Ammonium Lactate 12 % Cream 1 application Externally to affected areas of dry skin to feet except for between the toes Twice a day Ciclopirox Olamine 0.77 % Cream 1 application Externally Twice a day to skin of feet including between the toes Medication List reviewed and reconciled with the patientTaking Aspirin 81 MG Tablet Chewable 1 tablet Orally Once a day Taking Atorvastatin Calcium 40 MG Tablet 1 tablet Orally Once a day Taking Ammonium Lactate 12 % Cream 1 application Externally to affected areas of dry skin to feet except for between the toes Twice a day Taking Ciclopirox Olamine 0.77 % Cream 1 application Externally Twice a day to skin of feet including between the toes Medication List reviewed and reconciled with the patient * Allergies:?catsdogsyes[Aller gies Verified] Objective: * Vitals:?Ht: 5ft7in, Wt:150, BMI:23.49, Shoe size: 9-9.5, BP:120/85mm Hg, Ht-cm: 170.18 cm, Wt-k.04 kg. * Examination: ???Nails: ?NAILS are:?Elongated, overgrown, dystrophic, lytic, greater than 3mm thick, discolored and friable with crumbly malodorous subungual debris, with pain on palpation,, TA, T1, T2, T3, T4, T5, T6, T7, T8, T9.?Dermatologic: ?VERRUCA:?Reveals a Single , multi-loculated , mosaic-patterned, round, raised, flat-topped, petechial bleeding papule(s), with cauliflower appearance and interruption of skin lines, pain to lateral compression, and size estimated at 3mm diameter, plantar Forefoot, RIGHT.?Orthopedic: ?MUSCLE STRENGTH:?5/5 all groups in a symmetrical fashion, B/L.?BUNION:?Medially prominent 1st MPJ, Lateral tracking 1st MPJ incompletely reducible, RIGHT.?DIGITAL DEFORMITIES:?Digital contracture, PIPJ, 2-5 B/L, incompl-reducible with WB, or to push-up test, no over, nor underlapping.? Assessment: * Assessment: 1.?Pain in right toe(s) - M7 9.674???2.?Onychomycosis - B35.1 (Primary)???3.?Pain in left toe(s) - M79.675???4.?Right foot pain - M79.671???5.?Plantar wart - B07.0??? Plan: * Treatment: * Procedures:?Debride Nail 6-10:?Nail debridement?Due to the [...] use of a nail nipper and/or dremel-type air grinder, to a more viable healthy nail [...] to maintain effectiveness in symptomatic relief - 43177 Recommend Funginail OTC antifungal topical.?Wart Treatment:?Procedure?Verruca, as described in exam, were debrided to pin-point bleeding margins with sterile 15 surgical blade, silver nitrate chemocautery applied, recomm. immune-boosting meds such as zinc, recomm. follow up with topical chemosurgical agents, Pt defers any other forms of tx - 01200.? * Procedure Codes:?82395 DEBRI DE NAIL, 6 OR MORE, Modifiers: XS 05084 Wart Destruction, 1-14, Modifiers: XS * Preventive Medicine:? ??Screening/Special Tests:?Fall Risk?Screening:?No falls in the past year ?FALLS: Screening for Future Fall Risk?Have you had any falls with injury in the past year??No * Follow Up:?2 Months * Images: * Sign off status: Completed true * Provider:?Isabell Bedoya DPM Date:?02/2025 Generated for Smitha medina/Nasrin/Jason on:?01/31/2025 07:56 AM EDT History and Physical Notes * HPI (History of Present Illness) Category Sub-Category Detail Notes Category Not es Painful Nails Pt States Last PCP Visit: Date:: 12/12/2024 Skin problems Pt States PCP Visit: DATE: 12/12/2024 Examination Category Sub-Category Detail Notes Category Not es Dermatologic VERRUCA: Reveals a Single , multi-loculated , mosaic-patterned, round, raised, flat-topped, petechial bleeding papule(s), with cauliflower appearance and interruption of skin lines, pain to lateral compression, and size estimated at 3mm diameter, plantar Forefoot, RIGHT Orthopedic BUNION: Medially promine nt 1st MPJ, Lateral tracking 1st MPJ incompletely reducible, RIGHT DIGITAL DEFORMITIES: Digital contracture , PIPJ, 2-5 B/L, incompl-reducible with WB, or to push-up test, no over, nor underlapping MUSCLE STRENGTH: 5/5 all groups in a symmetrical fashion, B/L Nails NAILS are: Elongated, overg rown, dystrophic, lytic, greater than 3mm thick, discolored and friable with crumbly malodorous subungual debris, with pain on palpation,, TA, T1, T2, T3, T4, T5, T6, T7, T8, T9
[2025-01-31 10:01] LABS: MANUAL DIFF FLAG NO
[2025-01-31 10:04] LABS: Basophils Percent Auto 0.8 % (0-2); Eosinophils Absolute Auto 0.2 X10*3/uL (0.0-0.4); Eosinophils Percent Auto 4.4 % (0-4); Hematocrit 42.4 % (42.0-52.0); Hemoglobin 14.7 g/dl (14.0-18.0); Imm Gran Abs Auto 0.01 X10*3/uL (0.00-0.03); Imm Gran Pct Auto 0.3 % (0.0-0.4); Lymphocytes Absolute Auto 1.3 X10*3/uL (1.2-4.9); Lymphocytes Percent Auto 35.6 % (20-40); Mean Corpuscular HGB Conc 34.7 g/dl (31.0-36.0); Mean Corpuscular Hemoglobin 31.5 pg (27.0-33.0); Mean Corpuscular Volume 90.8 fL (80.0-98.0); Mean Platelet Volume 9.7 fL (9.4-12.4); Monocytes Absolute Auto 0.4 X10*3/uL (0.1-1.2); Monocytes Percent Auto 10.8 % (2-11); Neutrophils Absolute Auto 1.7 x10*3/uL (2.0-8.3); Neutrophils Percent Auto 48.1 % (45-73); Platelet Count 243 X10*3/uL (160-400); Red Blood Count 4.67 X10*6/uL (4.60-5.80); Red Cell Distribution Width 13.6 % (11.0-16.0); White Blood Count 3.6 X10*3/uL (4.8-10.8)
[2025-01-31 10:19] LABS: Alanine Aminotransferase 42 U/L (0-40); Albumin Level 4.1 g/dL (3.5-5.0); Alkaline Phosphatase 57 U/L (39-117); Anion Gap 10 (12-20); Aspartate Amino Transferase 49 U/L (5-37); Bilirubin Total 0.9 mg/dL (0.0-1.0); Blood Urea Nitrogen 19 mg/dL (9-16); Calcium 9.1 mg/dL (8.4-10.2); Carbon Dioxide 27 mmol/L (22-29); Chloride 104 mmol/L (96-108); Cholesterol 134 mg/dL (<200); Estimated Glomerular Filt Rate > 60; Glucose Fasting 87 mg/dL (60-99); HDL Cholesterol 47 mg/dL (>40); LDL Cholesterol Calculated 79 mg/dL (<100); Potassium 3.9 mmol/L (3.3-5.1); Sodium 137 mmol/L (135-145); Total Protein 6.9 g/dL (6.5-8.0); Triglycerides 44 mg/dL (<150)
[2025-01-31 10:34] LABS: Appearance Urine Cloudy; Color Urine Yellow; Glucose Urine UA Negative (Negative); Leukocyte Esterase Urine Negative (Negative); Nitrite Urine Negative (Negative); PH 5.5 (5.0-9.0); Specific Gravity - Urine 1.025 (1.005-1.025); Urine Blood Negative (Negative); Urine Ketones Negative (Negative); Urine Protein Negative (Neg-Trace)
[2025-01-31 10:39] LABS: Prostate Specific Antigen Scr 2.81 ng/mL (<0.05-4.0)
== END 2025-01-31 07:53 | disposition home or self-care (01) ==
LOC: HO.HMGCLDS 07:52
PROVIDERS: PCP Internal Medicine; Referring Provider Internal Medicine; Visit Provider Internal Medicine
DX: E78.00 Pure hypercholesterolemia, unspecified (principal); Z12.5 Encounter for screening for malignant neoplasm of prostate; N40.0 Benign prostatic hyperplasia without lower urinary tract symptoms
CPT/HCPCS: 36415; 80053; 80061; 81003; 84153; 85025

== ENCOUNTER 2025-02-26 10:24 | Outpatient (AMB) | payer MEDICARE, SELFPAY ==
--- NOTE | 2025-02-26 09:59 | MHC.PC.OV ---
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 Tender Required: No Accompanied by: Self / Same As Patient Allergies shellfish derived Allergy (Unknown, Verified 02/26/25 10:57) Unknown Medication List - Last Reconciled 02/26/25 by Elmo Sol MD aspirin 81 mg PO DAILY atorvastatin 40 mg PO DAILY Tobacco use date assessed: 02/26/25 Fall risk assessment: No Falls in past year Last assessed Fall Risk: 02/26/25 Dental Screening Dental Screen Date: 02/26/25 Did you have a dental visit in the last 12 months?: Yes Did you have a dental problem in the last 6 months where you did not have access to dental care?: No COUNTS INCLUDE 234 BEDS AT THE [facility] Medical History (Updated 02/26/25 @ 10:59 by Elmo Sol MD) Hyperlipidemia Bicuspid aortic valve Atherosclerotic cardiovascular disease Surgical History History of colonoscopy (~03/17/17) History of hernia repair Family History Father CVD (cardiovascular disease) Mother Atrial fibrillation CVD (cardiovascular disease) Social History Housing: House Alcohol intake: current Alcohol intake frequency: 0-2 drinks per day Alcohol type: beer Patient Tobacco Use Status: Never used Tobacco e-Cigarette/Vaping Use: Never Used service: Yes Current occupational status: retired Cognitive needs: No Hearing needs: No Vision needs: No Questionnaire PHQ-9 Over the last 2 weeks, how often have you been bothered by any of the following problems? 1. Little interest or pleasure in doing things: not at all 2. Feeling down, depressed, or hopeless: not at all 3. Trouble falling or staying asleep, or sleeping too much: not at all 4. Feeling tired or having little energy: not at all 5. Poor appetite or overeating: not at all 6. Feeling bad about yourself - or that you are a failure or have let yourself or your family down: not at all 7. Trouble concentrating on things, such as reading the newspaper or watching television: not at all 8. Moving or speaking so slowly that other people could have noticed. Or the opposite - being so fidgety or restless that you have been moving around a lot more than usual: not at all 9. Thoughts that you would be better off or of hurting yourself in some way: not at all Total score: 0 Depression Screening Interpretation: Negative Depression Screening Done: Yes Source: Developed by Drs. Yo Rod, Nolvia Gil, Marvel Guerrier and colleagues, with an educational kumar from [employer]. Thrive Questionnaire Date Thrive assessed: 02/26/25 I am a: Patient Within the past 12 months, did the food you bought not last and you didn't have the money to get more?: Never true Within the past 12 months, did you worry whether your food would run out before you got money to buy more?: Never true Do you have trouble paying for medicines?: No Do you have trouble getting transportation to medical appointments?: No Do you have trouble paying your heating and electricity bill?: No Do you have trouble taking care of your child, family member or friend?: No Do you have trouble with day-to-day activities such as bathing, preparing meals, shopping, managing finances, etc.?: No Are you currently unemployed and looking for a job?: No Are you interested in more education?: No Currently or been in a relationship where the following occur: No concerns reported THRIVE Score: 0 AUDIT C Alcohol Use Questionnaire (AUDIT-C) 1. How often do you have a drink containing alcohol?: Monthly or less 2. How many drinks containing alcohol do you have on a typical day when you are drinking?: 1 or 2 3. How often do you have six or more drinks on one occasion?: Less than monthly Total Score: 2 TORRES-7 AMB Questionnaire TORRES-7 Date TORRES - 7 assessed: 02/26/25 Feeling nervous, anxious, or on edge: 0 = Not at all Not being able to stop or control worryin = Not at all Worrying too much about different things: 0 = Not at all Trouble relaxin = Not at all Being so restless that it is hard to sit still: 0 = Not at all Becoming easily annoyed or irritable: 0 = Not at all Feeling afraid as if something awful might happen: 0 = Not at all Total TORRES-7 score (0-4 normal; 5-9 mild; 10-14 moderate; 15-21 severe): 0 Source: Developed by Drs. Yo Rod, Nolvia Gil, Marvel Guerrier and colleagues, with an educational kumar from [employer]. Physical exam (Primary Care) Vital Signs: Last Vital Signs Temp 97.1 F 02/26/25 10:00 Pulse 46 L 02/26/25 10:00 BP 132/76 02/26/25 10:00 Pulse Ox 98 02/26/25 10:00 Oxygen Delivery Method Room Air 02/26/25 10:00 Care Plan Goal for BP management: BP in range BMI result Body Mass Index 24.0 Tobacco/Smoking Status: Tobacco use Status Tobacco use date assessed 02/26/25 02/26/25 10:01 Patient Tobacco Use Status Never used Tobacco 02/26/25 10:01 e-Cigarette/Vaping Use Never Used 02/26/25 10:01 PHQ-9: PHQ-9 Score PHQ-9: Total score 0 02/26/25 10:31 Depression Screening Interpretation: Negative Thrive Assessment: Date of Thrive Assessment Date Thrive assessed 02/26/25 02/26/25 10:01 Currently or been in a relationship where the following occur: No concerns reported Advance Care Planning discussion: Exists, not on file Date of discussion: 02/26/25 Who was present: Patient Forms completed: Health Care Proxy and MOLST Time spent: 1-15 minutes, not on file Actual minutes spent: 5 Coding Level of Care Code Complex EM visit Add On G2211 Diagnoses Hyperlipidemia E78.5 Annual physical exam Z00.00 Additional Codes Vital Signs *Quality* - Advance Care Planning discussion: Exists, not on file ([id number]) Vital Signs *Quality* - Time spent: 1-15 minutes, not on file ([id number]) Assessment & Plan Assessment & Plan (1) Hyperlipidemia: Code(s): E78.5 - Hyperlipidemia, unspecified Category: Medical Plan: BW revd with patient. (2) Annual physical exam: Code(s): Z00.00 - Encounter for general adult medical examination without abnormal findings Plan: Small left inguinal hernia Plan History of Present Illness - The patient is a 69-year-old male presenting with inquiries about prostate health and management of an inguinal hernia. - History of essential hypertension with controlled readings, resting heart rate noted as low due to regular physical activity. - The patient has an inguinal hernia, evaluated five years ago and rated as minimally problematic. Regular running and biking have not caused significant aggravation. - Reports normal urination except frequent urination correlated with caffeine intake. Prostate health is monitored, and slightly elevated PSA was noted previously. - Good vision reported, some concern over optic nerve thinning due to familial history of glaucoma. Social History - Retired from the [employer], engages in physical side work. - Regularly participates in athletic activities like running and biking. - No glasses, drives at night without issues. Review of Systems - Genitourinary: Reports increased urination frequency due to caffeine; denies urinary hesitancy or difficulty. - Musculoskeletal: Denies pain or discomfort with activity, occasional bloating once a month. - Ophthalmological: Reports good vision; denies use of corrective lenses. - Cardiovascular: Denies chest pain or palpitations. Physical Exam General: Cooperative and healthy appearing Nutritional Appearance: Well nourished Orientation/consciousness: Patient oriented x3 Limitations: No limitations Head: Normal to inspection General: Appearance normal, both eyes and all related structures Neck: Normal visual inspection Chest: Normal palpation of entire chest wall Respiratory: Normal respiratory effort Neurology: Patient oriented x3 Results - Labs indicate normal cholesterol levels as per blood work in January. - Showing a slightly elevated PSA following a check. Plan 1. Hyperlipidemia - Continue with current medication; monitor levels through follow-up labs. 2. Benign Prostatic Hyperplasia - Assess symptoms as needed; PSA elevation noted but not problematic. 3. Inguinal Hernia - Given its minimal interference with daily activity, surgery is not advised at this time. 4. Hypertension - Maintain current regimen and monitor blood pressure routinely. Discussion Notes During the consultation, I discussed with the patient that his slightly elevated PSA levels, although monitored, are not currently concerning and do not warrant immediate intervention unless symptoms change. Regarding the inguinal hernia, I advised that given his active lifestyle without significant discomfort, surgical correction is unnecessary at this stage, provided the hernia does not worsen. We discussed options for hypertension management and confirmed current control with active monitoring. The patient agreed with this conservative approach and understood the importance of surveillance in the management of these conditions. Patient Instructions - Continue taking your medications as prescribed. - Monitor your blood pressure at home; if consistently high, contact us. - Attend regular follow-up appointments for PSA monitoring. - Maintain your active lifestyle; report any changes in symptoms related to the hernia. - Follow up with your screw eye assembler for glaucoma monitoring.
[2025-02-26 10:00] VITALS: BP 132/76; PULSE 46; TEMP 36.2; O2SAT 98; BMI 24.0
--- OUTSIDE RECORDS SUMMARY | 2025-02-26 11:01 | XMS_ITS | Patient Health Record ---
Author Organization [facility] Address [address] [address] Care Team Providers Care Software Quality Manager Name Role Phone Elmo Sol Primary Care Provider [phone] Isabell Bedoya [phone] Allergies Allergen (clinical drug ingredient) Drug/Non Drug [...] Problem Acquired hammer toe of right foot ([id number]) Other hammer toe(s) (acquired), right foot (M20.41) Active confirmed Problem Acquired hammer toe of left foot (4812179993745569) Other hammer toe(s) (acquired), left foot (M20.42) Active confirmed Problem Plantar wart (58540093) Plantar wart (B07.0) Active confirmed Problem [id number] Hallux valgus of right foot (M20.11) Active confirmed Problem Localized, primary osteoarthritis of the ankle and/or foot (995700710) Arthritis of joint of lesser toe, left (M19.072) Active confirmed Problem Localized, primary osteoarthritis of the ankle and/or foot (023515186) Arthritis of joint of lesser toe, right (M19.071) Active confirmed Vital Signs Blood pressure diastolic 85 mm Hg 01/28/2025 Height 5ft7in in 01/28/2025 Blood pressure systolic 120 mm Hg 01/28/2025 Weight 150 lbs 01/28/2025 BMI 23.49 kg/m2 01/28/2025 Encounters Encounter Location Date Provider Diagnosis [address] [address] 08/27/2024 Isabell Perica Onychomycosis B35.1 ; Metatarsalgia, right foot M77.41 ; Pain in right toe(s) M79.674 ; Pain in left toe(s) M79.675 ; Right foot pain M79.671 ; Plantar wart B07.0 ; Xerosis of skin L85.3 ; Other hammer toe(s) (acquired), right foot M20.41 ; Other hammer toe(s) (acquired), left foot M20.42 and Hallux valgus of right foot M20.[address] [address] 11/06/2024 Isabell Perica Onychomycosis B35.1 ; Tinea pedis of both feet B35.3 ; Pain in right toe(s) M79.674 ; Pain in left toe(s) M79.675 ; Right foot pain M79.671 ; Plantar wart B07.0 and Xerosis of skin L85.[address] [address] 01/28/2025 Isabell Bedoya Onychomycosis B35.1 ; Pain [...] Details Provider Name:Isabell pinon, 04/11/2025 01:15:00 PM, [address] [place] [address], [phone], Insurance Providers Payer Name Payer Address Payer Phone Subscriber Number Group Number Insured Name Patient Relationship to Insured Coverage Start Date Coverage End Date [employer] [address] [place] [phone] [id number] Eliot Tobin Self - patient is the insured 4 Medical (General) History Medical History History ICD Code CAD (Cholesterol) covid-19 Heart disease Measles Mumps Chicken pox Surgical History Surgery Date(Month/Year) hernia surgery 1964
== END 2025-02-26 10:57 | disposition home or self-care (01) ==
LOC: HO.HMCHD 10:24
PROVIDERS: PCP Internal Medicine; Visit Provider Internal Medicine
DX: Z00.00 Encounter for general adult medical examination without abnormal findings (principal); E78.5 Hyperlipidemia, unspecified

== ENCOUNTER → 2025-02-26 10:24 | Outpatient (BNVA) | payer MEDICARE, SELFPAY | PROVIDERS: PCP Internal Medicine; Visit Provider Internal Medicine | DX: Z00.00 Encounter for general adult medical examination without abnormal findings (principal); E78.5 Hyperlipidemia, unspecified; N40.0 Benign prostatic hyperplasia without lower urinary tract symptoms; K40.90 Unilateral inguinal hernia, without obstruction or gangrene, not specified as recurrent; I10 Essential (primary) hypertension | CPT/HCPCS: 96127; 99397 ==

== ENCOUNTER 2025-04-21 09:52 | Outpatient (AMB) | payer MEDICARE, SELFPAY ==
--- NOTE | 2025-04-21 09:54 | A.OFFVIS_ITS ---
Vital Signs 04/21/25 09:56 Height 5 ft 7 in Weight 154 lb 5.177 oz BMI 24.2 BP 128/70 Blood Pressure Location Lt brachial Position Sitting Pulse 75 Pulse Source Pulse Oximeter Intake Visit Reasons: 6 mth f/up-echo Allergies shellfish derived Allergy (Unknown, Verified 02/26/25 10:57) Unknown Medication List - Last Reconciled 04/21/25 by Gordon Huffman MD aspirin 81 mg PO DAILY atorvastatin 40 mg PO DAILY HPI Comments Details: Eliot returns for follow-up regarding coronary disease. He used to be a runner and was running several miles a day but he states that for the last few months he has not been running but rather switched over to cycling. He does not have any clear-cut symptoms. However, he is noticing that his heart rate is running much higher than his usual. He used to be running generally in the 40s but these days they are running in the 70s. We had an EKG today and that shows atrial flutter rather than his baseline sinus bradycardia. [facility] Medical History (Updated 04/21/25 @ 10:24 by Gordon Huffman MD) Hyperlipidemia Bicuspid aortic valve Atherosclerotic cardiovascular disease Surgical History History of colonoscopy (~03/17/17) History of hernia repair Family History Father CVD (cardiovascular disease) Mother Atrial fibrillation CVD (cardiovascular disease) Social History Housing: House Alcohol intake: current Alcohol intake frequency: 0-2 drinks per day Alcohol type: beer Patient Tobacco Use Status: Never used Tobacco e-Cigarette/Vaping Use: Never Used service: Yes Current occupational status: retired Cognitive needs: No Hearing needs: No Vision needs: No Review of Systems Const Denies weakness ENT Denies dizziness Card Denies chest pain, Denies chest pain with activity, Denies syncope, Denies rapid heart rate, Denies pedal edema, Denies edema, Denies leg edema, Denies lightheadedness, Denies palpitations, Denies dyspnea, Denies dyspnea on exertion and Denies orthopnea Resp Denies cough, Denies dyspnea and Denies dyspnea on exertion GI Denies hematochezia and Denies change in stool character Musc Denies abnormal gait, Denies muscle cramps, Denies muscle weakness, Denies numbness, Denies radiating pain into limb and Denies tingling Neuro Denies abnormal gait, Denies dizziness, Denies syncope, Denies numbness, Denies tingling and Denies weakness Endo Denies palpitations Physical Exam Vital Signs: Last Vital Signs Pulse 75 04/21/25 09:56 BP 128/70 04/21/25 09:56 BMI result Body Mass Index 24.2 Const General: comfortable and no acute distress Orientation/consciousness: patient oriented x3 HEENT Other: Unremarkable Head: Yes normal to inspection Neck Neck: Yes normal visual inspection Chest Chest palpation & inspection: normal inspection of the chest Resp Auscultation: clear to auscultation bilaterally Cardio Palpation: normal PMI Heart sounds: S1 normal heart sound present, S2 normal heart sound present, no gallops, Murmur heart sound present systolic II/ and at the right sternal border and no rubs GI Palpation (GI): Soft to palpation Back/Spine/Pelvis Other: unremarkable Skin General skin exam: no rashes or lesions noted Neuro General: patient oriented x3 Extrem General: Yes normal to inspection Psych Mental Status: mental status grossly normal Office Procedures EKG Details: EKG with atrial flutter at a rate of 61/Min. [id number]-[id number], Complete Assessment & Plan Assessment & Plan (1) Atherosclerotic cardiovascular disease: Code(s): I25.10 - Atherosclerotic heart disease of [place] coronary artery without angina pectoris Category: Medical Plan: Cardiac studies reviewed. Coronary CTA from 2022- no clear obstructive disease. Mostly mild coronary disease. Mild left atrial/left ventricular dilatation and that might be from high levels of endurance activity. In the echocardiogram, preserved LVEF, 65-70%. Basal inferior hypokinesis. Myocardial perfusion imaging study 2020 with mixed ischemia/infarct pattern in the basal inferoseptal/inferolateral wall. In the exercise component, he was able to do as much as 11 minutes. He can take aspirin for now. Once he starts the Eliquis, stop the aspirin. With regard to statins, he is reluctant to go up on the dose. His LDL is reasonable but could be better. Last 79 mg/dL. Previously, as much as 150 mg/dL. (2) Bicuspid aortic valve: Code(s): Q23.1 - Congenital insufficiency of aortic valve Category: Medical Plan: There has been a question if it truly has a bicuspid valve versus trileaflet. Echocardiogram shows only mild aortic stenosis. (3) Atrial flutter: Code(s): I48.92 - Unspecified atrial flutter Category: Medical Plan: EKG today shows atrial flutter with controlled ventricular rate. His baseline EKGs generally sinus bradycardia in the 40s with prolonged ND. Atrial flutter spontaneously rate controlled because of underlying conduction system disease. We discussed about this new finding in great detail. He needs anticoagulation but he is quite reluctant. We discussed about stroke risk. We also discussed about EP consultation and flutter ablation. As long as there is no concurrent atrial fibrillation, he may be able to stop anticoagulation after the flutter ablation. We will also do a Holter monitor. In the echocardiogram, mild left atrial dilatation. (4) Bradycardia: Code(s): R00.1 - Bradycardia, unspecified Category: Medical Plan: In the past, baseline EKG with sinus bradycardia and prolonged ND. No absolute indication for pacemaker at this time but something we need to consider in the future. Orders: Orders ECG 3 day holter monitor Today I48.92 - Unspecified atrial flutter Prothrombin Time INR Today I48.92 - Unspecified atrial flutter Referrals Cardiac Electrophysiology Referral I48.92 - Unspecified atrial flutter Medications: New apixaban (Eliquis) 5 mg PO BID 180 tabs 3RF 90 days I48.92 - Unspecified atrial flutter Coding Level of Care Code Est Pt Level 4 (98759) Complex EM visit Add On G2211 Diagnoses Atherosclerotic cardiovascular disease I25.10 Bicuspid aortic valve Q23.1 Atrial flutter I48.92 Bradycardia R00.1 CPT Codes EKG - CPT: 98059-[id number], Complete ([id number])
[2025-04-21 09:56] VITALS: BP 128/70; PULSE 75; BMI 24.2
--- OUTSIDE RECORDS SUMMARY | 2025-04-21 10:51 | XMS_ITS | Patient Health Record ---
Author Organization [facility] Jane [place] Address [address] [place] [address] Care Team Providers Care Collar Cutter Name Role Phone Elmo Sol Primary Care Provider [phone] Isabell Bedoya Unavailable [phone] Allergies Allergen (clinical drug ingredient) Drug/Non Drug [...] except for between the toes Twice a day; Duration: 30 days Active Ciclopirox Olamine 0.77 % 1 application Externally Twice a day to skin of feet including between the toes; Duration: 30 days Active Aspirin 81 MG 1 tablet Orally Once a day Active Atorvastatin Calcium 40 MG 1 tablet Oral ly Once a day Active Immunizations Vaccine Route Administration Date Status Comme nts Influenza Unknown 05/26/2024 Administered Social History Tobacco Use: Social History Observation [...] Are you an other tobacco user? No AUDIT-C (Standard) Question Answer Notes Did you have a drink containing alcohol in the p ast year? No Points 0 Interpretation Negative Problems Problem Type SNOMED Code ICD Code Onset Dates Problem Status W/U Status Risk Notes Problem Acquired hammer toe of right foot (1478274147818874) Other hammer toe(s) (acquired), right foot (M20.41) Active confirmed Problem Acquired hammer toe of left foot (1291900398730090) Other hammer toe(s) (acquired), left foot (M20.42) Active confirmed Problem Plantar wart (73007281) Plantar wart (B07.0) Active confirmed Problem Acquired right hallux valgus (498419650286040) Hallux valgus of right foot (M20.11) Active confirmed Problem Localized, primary osteoarthritis of the ankle and/or foot (430338806) Arthritis of joint of lesser toe, left (M19.072) Active confirmed Problem Localized, primary osteoarthritis of the ankle and/or foot (481845432) Arthritis of joint of lesser toe, right (M19.071) Active confirmed Vital Signs Blood pressure diastolic 84 mm Hg 04/11/2025 Height 5ft7in in 04/11/2025 Blood pressure systolic 120 mm Hg 04/11/2025 Weight 155 lbs 04/11/2025 BMI 24.27 kg/m2 04/11/2025 Encounters Encounter Location Date Provider Diagnosis [facility] [address] 08/27/2024 Isabell Perica Onychomycosis B35.1 ; Metatarsalgia, right foot M77.41 ; Pain in right toe(s) M79.674 ; Pain in left toe(s) M79.675 ; Right foot pain M79.671 ; Plantar wart B07.0 ; Xerosis of skin L85.3 ; Other hammer toe(s) (acquired), right foot M20.41 ; Other hammer toe(s) (acquired), left foot M20.42 and Hallux valgus of right foot M20.[address] [facility] [address] 11/06/2024 Isabell Perica Onychomycosis B35.1 ; Tinea pedis of both feet B35.3 ; Pain in right toe(s) M79.674 ; Pain in left toe(s) M79.675 ; Right foot pain M79.671 ; Plantar wart B07.0 and Xerosis of skin L85.[address] [address] 01/28/2025 Isabell Perica Onychomycosis B35.1 ; Pain in right toe(s) M79.674 ; Pain in left toe(s) M79.675 ; Right foot pain M79.671 and Plantar wart B07.[address] [address] 04/11/2025 Isabell Perica Onychomycosis B35.1 ; Hallux valgus of right foot M20.11 ; Pain in right toe(s) M79.674 ; Pain in left toe(s) M79.675 ; Right foot pain M79.671 ; Plantar wart B07.0 and Other hammer toe(s) (acquired), right foot M20.41 Assessments Encounter Date Diagnosis (ICD Code) Assessment Notes Treatment Notes Treatment Clinical Notes Section Notes 08/27/2024 Metatarsalgia, right foot (ICD-10 - M77.41) 08/27/2024 Onychomycosis (ICD-10 - B35.1) 11/06/2024 Onychomycosis (ICD-10 - B35.1) 11/06/2024 Tinea pedis of both feet (ICD-10 - B35.3) 01/28/2025 Pain in right toe(s) (ICD-10 - M79.674) 01/28/2025 Onychomycosis (ICD-10 - B35.1) 04/11/2025 Hallux valgus of right foot (ICD-10 - M20.11) 04/11/2025 Onychomycosis (ICD-10 - B35.1) 01/28/2025 Pain in left toe(s) (ICD-10 - M79.675) 04/11/2025 Pain in right toe(s) (ICD-10 - M79.674) 11/06/2024 Pain in right toe(s) (ICD-10 - M79.674) 08/27/2024 Pain in right toe(s) (ICD-10 - M79.674) 08/27/2024 Pain in left toe(s) (ICD-10 - M79.675) 11/06/2024 Pain in left toe(s) (ICD-10 - M79.675) 04/11/2025 Pain in left toe(s) (ICD-10 - M79.675) 01/28/2025 Right foot pain (ICD-10 - M79.671) 04/11/2025 Right foot pain (ICD-10 - M79.671) 11/06/2024 Right foot pain (ICD-10 - M79.671) 01/28/2025 Plantar wart (ICD-10 - B07.0) 08/27/2024 Right foot pain (ICD-10 - M79.671) 08/27/2024 Plantar wart (ICD-10 - B07.0) 11/06/2024 Plantar wart (ICD-10 - B07.0) 04/11/2025 Plantar wart (ICD-10 - B07.0) 04/11/2025 Other hammer toe(s) (acquired), right foot (ICD-10 - M20.41) 11/06/2024 Xerosis of skin (ICD-10 - L85.3) 08/27/2024 Xerosis of skin (ICD-10 - L85.3) 08/27/2024 Other hammer toe(s) (acquired), right foot (ICD-10 - M20.41) 08/27/2024 Other hammer toe(s) (acquired), left foot (ICD-10 - M20.42) 08/27/2024 Hallux valgus of right foot (ICD-10 - M20.11) Plan Of Treatment Next Appt Details Provider Name:Isabell pinon, 06/27/2025 12:30:00 PM, [address] [place] [address], [phone], Insurance Providers Payer Name Payer Address Payer Phone Subscriber Number Group Number Insured Name Patient Relationship to Insured Coverage Start Date Coverage End Date [employer] [address] [place] [address] [id number] WandaEliot hudson Self - patient is the insured 4 Medical (General) History Medical History History ICD Code CAD (Cholesterol) covid-19 Heart disease Measles Mumps Chicken pox Surgical History Surgery Date(Month/Year) hernia surgery 1962
--- OUTSIDE RECORDS SUMMARY | 2025-04-21 10:51 | XMS_ITS | Clinical Summary ---
Author Organization [address] [facility] Address [address] [place] [address] Phone Care Team Providers Care Song And Dance Performer Name Role Phone Nba De La Garza MD Primary Care Provider [phone] Allergies No known active allergies Medications ammonium lactate (AMLACTIN) 12 % cream PLEASE SEE ATTACHED FOR DETAILED DIRECTIONS 5 Active aspirin 81 mg EC tablet Take 1 tablet (81 mg total) by mouth. Active atorvastatin (LIPITOR) 40 mg tablet Take 1 tablet (40 mg total) by mouth 1 (one) time each day. Active ciclopirox (LOPROX) 0.77 % cream 1 APPLICATION EXTERNALLY TWICE A DAY TO SKIN OF FEET INCLUDING BETWEEN THE TOES 30 DAYS 5 Active Active Problems Problem Noted Date Diagnosed Date Non-recurrent unilateral ing uinal hernia without obstruction or gangrene 04/15/2025 Neck pain on left side 12/10/2021 Overview (04/15/2025): Last Assessment & Plan: Pt describes left sided neck pain and tightness/spasm to the collarbone, worse with movement, radiating up the back of the left lateral occiput that started around July 2021, no specific inciting event although pt states he did run a 10K race in very cold weather before this started, he is not sure if it contributed. He is an avid runner, has been running for many years. He denies any arm pain, weakness, n/t except for chronic occasional intermittent left 5th digit numbness during sleep. He tried PT but they did not try TENS unit, he did not see any improvements. Muscle relaxers did not help either. I reviewed his C/[place] from [facility] [place]. 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 She is not recommending any surgical interventions at this time. He will try PT for evaluation of TENS unit home device if it helps him. I encouraged him to continue with stretching exercises. He has a f/u appt with Dr. Barney in 6 weeks. OM (onychomycosis) 12/10/2021 Encounters Date Type Department Care Team Description 04/15/2025 1:40 PM EDT Consult General Surgery - [address] [place] [phone] Bryan Solorio MD Non-recurrent unilateral inguinal hernia without obstruction or gangrene from Last 3 Months Immunizations Name Administration Dates Next Due Influenza Quadravalent, MDCK , 0.5ml, preservative free (Flucelvax) 6mo and older 06/20/2019 Influenza Quadravalent, MDCK , 0.5ml, with preservative (Flucelvax) 6mo and older 06/18/2020 Influenza trivalent, 0.5mL (Fluad) 65yo and olde r 08/07/2024 Influenza trivalent, with pr eservative (Fluzone; Afluria) 6mo and older 10/13/2015 Influenza, Unspecified 10/08/2012 Pneumococcal conjugate 20 va lent (Prevnar 20, PCV 20) 2mo and older 03/15/2023 RSV, bivalent, protein subun it RSVpreF, 0.5mL, Preservative Free (Arexvy) 60yo and older 08/25/2023 TD, Adsorbed, Preservative Free 09/25/2006 Zoster recombinant (Shingrix) 19yo and older 09/2020,03/26/2021 Surgical History Surgery Date Site/Laterality Comments HERNIA REPAIR 1962 PROCEDURE: HISTORICAL HERNIA REPAIR/ING Social History Tobacco Use Types Packs/Day Years Used Date Smoking Tobacco: Never Smokeless Tobacco: Never Alcohol Use Standard Drinks/Week Comments Yes 2 (1 standard drink = 0.6 oz pur e alcohol) Sex and Gender Information Value Date Recorded Sex Assigned at Not on file Legal Sex Male 3:42 AM EST Gender Identity Not on file Sexual Orientation Not on file Obstetrics History Last Filed Vital Signs Vital Sign Reading Time Taken Comments Blood Pressure 153/95 04/15/2025 1:54 PM EDT Pulse 80 04/15/2025 1:54 PM EDT Temperature - - Respiratory Rate - - Oxygen Saturation - - Inhaled Oxygen Concentration - - Weight 71.4 kg (157 lb 8 oz) 04/15/2025 1:54 PM EDT Height 167.6 cm (5' 6 ) 12/10/2021 1:39 PM EDT Body Mass Index 25.42 12/10/2021 1:39 PM EDT Plan of Treatment Upcoming Encounters Date Type Department Care Team (Latest Contact Info) Description 07/14/2025 10:00 AM EDT Hospital Encounter [facility] [place] [address] [place] [phone] Bryan Solorio MD [address] [place] [phone] 07/14/2025 10:00 AM EDT - 07/14/2025 11:30 AM EDT Surgery [facility] [place] [address] [place] [phone] rByan Solorio MD [address] [place] [phone] OPEN REPAIR LEFT INGUINAL HERNIA W/MESH [86125 (CPT )] 08/05/2025 11:15 AM EST Office Visit General Surgery [address] [phone] Bryan Solorio MD [address] [place] [id number] Scheduled Procedures Name Priority Associated Diagnoses Date/Ti me REPAIR HERNIA INGUINAL Non-recurrent unilateral inguinal hernia without obstruction or gangrene 07/14/2025 10:00 AM EDT Health Maintenance Due Date Last Done Comments DTaP,Tdap,and Td Vaccines (1 - Tdap) 09/26/2006 09/25/2006 COVID-19 Vaccine ( season) 2024 07/29/2021, 11/10/2020, 10/20/2020 Depression Screening 09/25/2024 Cholesterol Screening (Lipid Panel) 04/11/2025 Colorectal Cancer Screening: Colonoscopy 04/11/2025 Falls Risk Assessment 04/11/2025 Hepatitis C Screening 04/11/2025 Medicare Annual Wellness Visit 04/11/2025 Social Influencers of Health Screening 04/11/2025 Influenza Vaccine (#1) 2025 , 05/26/2024, 06/18/2020, Additional history exists Zoster Vaccines Completed 08/25/2021, 03/26/2021 Pneumococcal Vaccine: 50+ Years Completed 03/15/2023 RSV Immunization Adult Patients Completed 08/25/2023 HIB Vaccines Aged Out No longer eligi ble based on patient's age to complete this topic HPV Vaccines Aged Out No longer eligi ble based on patient's age to complete this topic Hepatitis A Vaccines Aged Out No long er eligible based on patient's age to complete this topic Hepatitis B Vaccines Aged Out No long er eligible based on patient's age to complete this topic IPV Vaccines Aged Out No longer eligi ble based on patient's age to complete this topic MMR Vaccines Aged Out No longer eligi ble based on patient's age to complete this topic Meningococcal ACWY Vaccine Aged Out N o longer eligible based on patient's age to complete this topic Meningococcal B Vaccine Aged Out No l onger eligible based on patient's age to complete this topic RSV Immunization Patients Under 20 months Aged Out No longer eligible based on patient's age to complete this topic Varicella Vaccines Aged Out No longer eligible based on patient's age to complete this topic Insurance [employer] MEDICARE ADVANTAGE Care Teams Song And Dance Performer Relationship Specialty Start Date End Date Nba De La Garza MD [address] [place] [address] Dr Denny [place] PCP - General Internal Medicine 12/10/21
--- OUTSIDE RECORDS SUMMARY | 2025-04-21 10:52 | XMS_ITS | Patient Health Record ---
Author Organization [facility] Address [address] [place] [address] Care Team Providers Care Timber Hand Name Role Phone Holli (RETIRED) Nba WILKES Primary Care Provide Yo Cheng [phone] Allergies Allergen (clinical drug ingredient) Drug/Non Drug Allergy documented on EMR Reaction Allergy Type Onset Date Status pollen,cats and dogs (uncoded) Unknown Allergy Active Reason For Referral No Information Medications Medication SIG (Take, Route, Frequency, Duration) Notes Start Date End Date Status Aspir-81 Active Colyte with Flavor Packs 240 GM As directed Orally Over the specified time. for 1 day(s) 01/13/2017 Active ibuprofen prn Active Problems Problem Type SNOMED Code ICD Code Onset Dates Problem Status W/U Status Risk Notes Problem 877419485 Colon cancer screening (Z12.11) Active confirmed Problem 92447377 Encounter for other preprocedural examination (Z01.818) Active confirmed Problem 036615966 manager long term care (current) use of aspirin (Z79.82) Active confirmed Plan Of Treatment Future Test Test Name Order Date COLONOSCOPY 01/13/2017 Insurance Providers Payer Name Payer Address Payer Phone Subscriber Number Group Number Insured Name Patient Relationship to Insured Coverage Start Date Coverage End Date [facility] [employer] [facility] [address] [address] [place], [place] [id number] KITA HERNANDEZ Self - patient is the insured Medical (General) History Medical History History ICD Code Denies AL,DM,CVA,Lung disease,renal dise ase Surgical History Surgery Date(Month/Year) hernia - age 9 1962
== END 2025-04-21 10:39 | disposition home or self-care (01) ==
LOC: HO.HCS 09:52
PROVIDERS: PCP Internal Medicine; Visit Provider Internal Medicine
DX: I25.10 Atherosclerotic heart disease of native coronary artery without angina pectoris (principal); Q23.1 Congenital insufficiency of aortic valve; I48.92 Unspecified atrial flutter; R00.1 Bradycardia, unspecified
CPT/HCPCS: 93010; 99214; G2211

== ENCOUNTER → 2025-04-21 09:52 | Outpatient (BNVA) | payer MEDICARE, SELFPAY | PROVIDERS: PCP Internal Medicine; Visit Provider Internal Medicine | DX: I25.10 Atherosclerotic heart disease of native coronary artery without angina pectoris (principal); I48.92 Unspecified atrial flutter; Q23.1 Congenital insufficiency of aortic valve; R00.1 Bradycardia, unspecified | CPT/HCPCS: 93005; 99212 ==

== ENCOUNTER 2025-04-22 09:02 | Outpatient (REF) | payer MEDICARE, SELFPAY ==
--- OUTSIDE RECORDS SUMMARY | 2025-04-22 09:26 | XMS_ITS | Patient Health Record ---
Author Organization [facility] Address [address] [place] [address] Care Team Providers Care Bill Sorter Name Role Phone Holli (RETIRED) Nba WILKES Primary Care Provide Yo Cheng [phone] Allergies Allergen (clinical drug ingredient) Drug/Non Drug [...] Problem Status W/U Status Risk Notes Problem 802528680 Colon cancer screening (Z12.11) Active confirmed Problem 97401537 Encounter for other preprocedural examination (Z01.818) Active confirmed Problem 378383933 intermission coordinator (current) use of aspirin (Z79.82) Active confirmed Plan Of Treatment Future Test Test Name Order Date COLONOSCOPY 01/13/2017 Insurance Providers Payer Name Payer Address Payer Phone Subscriber Number Group Number Insured Name Patient Relationship to Insured Coverage Start Date Coverage End Date [facility] [employer] [facility] [address] [address] [place], [place] [id number] KITA HERNANDEZ Self - patient is the insured Medical (General) History Medical History History ICD Code Denies CO,DM,CVA,Lung disease,renal dise ase Surgical History Surgery Date(Month/Year) hernia - age 9 1962
--- OUTSIDE RECORDS SUMMARY | 2025-04-22 09:26 | XMS_ITS | Clinical Summary ---
Author Organization [facility] Address [address] [place] [address] Phone Care Team Providers Care Spring Setter Name Role Phone Nba De La Garza MD Primary Care Provider [phone] Allergies No known active allergies Medications ammonium [...] either. I reviewed his C/[place] [facility] [place] with [place]. Barney, he [...] 1:40 PM EDT Consult General Surgery - [address] [place] [phone] Bryan Solorio MD Non-recurrent unilateral inguinal [...] Description 07/14/2025 10:00 AM EDT Hospital Encounter [facility] OR [address] [place] [phone] Bryan Solorio MD [address] [place] [phone] 07/14/2025 10:00 AM EDT - 07/14/2025 11:30 AM EDT Surgery [facility] [place] [address] [place] [phone] Bryan Solorio MD [address] [place] [phone] OPEN REPAIR LEFT INGUINAL HERNIA W/MESH [65840 (CPT )] 08/05/2025 11:15 AM EST Office Visit General Surgery [address] [phone] Bryan Solorio MD [address] [place] [phone] Scheduled Procedures Name Priority Associated Diagnoses Date/Ti [...] topic Insurance [employer] MED[employer]ARE ADVANTAGE Care Teams Spring Setter Relationship Specialty Start Date End Date Nba De La Garza MD [address] [place] [address] Dr Denny MA PCP - General Internal Medicine 12/10/21
--- OUTSIDE RECORDS SUMMARY | 2025-04-22 09:26 | XMS_ITS | Patient Health Record ---
Author Organization [facility] Jane [place]in Address [address] [place] [address] Care Team Providers Care Field Contact Technician Name Role Phone Elmo Sol Primary Care Provider [phone] Isabell Bedoya Unavailable [phone] Allergies Allergen (clinical drug ingredient) Drug/Non Drug [...] Problem Acquired hammer toe of right foot (9312266297804546) Other hammer toe(s) (acquired), right foot (M20.41) Active confirmed Problem Acquired hammer toe of left foot (4872969511228536) Other hammer toe(s) (acquired), left foot (M20.42) Active confirmed Problem Plantar wart (82536175) Plantar wart (B07.0) Active confirmed Problem Acquired right hallux valgus (000625693489906) Hallux valgus of right foot (M20.11) Active confirmed Problem Localized, primary osteoarthritis of the ankle and/or foot (899827639) Arthritis of joint of lesser toe, left (M19.072) Active confirmed Problem Localized, primary osteoarthritis of the ankle and/or foot (281969124) Arthritis of joint of lesser toe, right (M19.071) Active confirmed Vital Signs Blood pressure diastolic 84 mm Hg 04/11/2025 Height 5ft7in in 04/11/2025 Blood pressure systolic 120 mm Hg 04/11/2025 Weight 155 lbs 04/11/2025 BMI 24.27 kg/m2 04/11/2025 Encounters [facility]counter [facility] Date [facility] [address] [facility]/27[facility] Isabell Perica Onychomycosis B35.1 ; Metatarsalgia, right foot M77.41 ; Pain in right toe(s) M79.674 ; Pain in left toe(s) M79.675 ; Right foot pain M79.671 ; Plantar wart B07.0 ; Xerosis of skin L85.3 ; Other hammer toe(s) (acquired), right foot M20.41 ; Other hammer toe(s) (acquired), left foot M20.42 and Hallux valgus of right foot M20.[address] [facility] [address] 11/06/2024 Isabell Perica Onychomycosis B35.1 ; Tinea pedis of both feet B35.3 ; Pain in right toe(s) M79.674 ; Pain in left toe(s) M79.675 ; Right foot pain M79.671 ; Plantar wart B07.0 and Xerosis of skin L85.[address] [address] 01/28/2025 Isabell Perica Onychomycosis B35.1 ; Pain in right toe(s) M79.674 ; Pain in left toe(s) M79.675 ; Right foot pain M79.671 and Plantar wart B07.[address] [address] 04/11/2025 Isabell Perica Onychomycosis B35.1 ; Hallux [...] Details Provider Name:Isabell pinon, 06/27/2025 12:30:00 PM, [address] [place] [address], [phone], Insurance Providers Payer Name Payer Address Payer Phone Subscriber Number Group Number Insured Name Patient Relationship to Insured Coverage Start Date Coverage End Date A[employer] [address] [place] [address] [id number] WandaEliot hudson Self - patient is the insured 4 Medical (General) History Medical History History ICD Code CAD (Cholesterol) covid-19 Heart disease Measles Mumps Chicken pox Surgical History Surgery Date(Month/Year) hernia surgery 1964
[2025-04-22 10:20] LABS: INTERNATIONAL NORM RATIO 1.2 (0.9-1.1); Prothrombin Time 13.6 SEC (10.9-12.4)
== END 2025-04-22 09:03 | disposition home or self-care (01) ==
LOC: HO.HMGCLDS 09:02
PROVIDERS: PCP Internal Medicine; Visit Provider Internal Medicine
DX: I48.92 Unspecified atrial flutter (principal)
CPT/HCPCS: 36415; 85610

== ENCOUNTER → 2025-04-23 12:43 | Outpatient (REF) | payer MEDICARE, SELFPAY ==
--- NOTE | 2025-04-23 12:47 | HM_ITS ---
* Total monitoring time 3 days. * Underlying rhythm is atrial flutter with an average rate of 64/Min. Most rates are within range. * Multiple pauses noted but do not reach significance. Longest 3 seconds during sleep hours. * PVCs noted with a burden of 1.7%. Rare couplets and one triplet. Longest run 6 beats but cannot exclude aberrant conduction. * Palpitations, tiredness and fatigue in patient diary correlates with atrial flutter and PVCs. MTDD
--- OUTSIDE RECORDS SUMMARY | 2025-04-23 13:15 | XMS_ITS | Patient Health Record ---
Author Organization [facility] Jane Chapin Address [address] [place] [address] Care Team Providers Care Labor Relations Consultant Name Role Phone Elmo Sol Primary Care Provider Isabell Bedoya Unavailable [phone] Allergies Allergen (clinical drug ingredient) Drug/Non Drug [...] Problem Acquired hammer toe of right foot (9486541465673662) Other hammer toe(s) (acquired), right foot (M20.41) Active confirmed Problem Acquired hammer toe of left foot (0497334703774222) Other hammer toe(s) (acquired), left foot (M20.42) Active confirmed Problem Plantar wart (51974888) Plantar wart (B07.0) Active confirmed Problem Acquired right hallux valgus (418387801345583) Hallux valgus of right foot (M20.11) Active confirmed Problem Localized, primary osteoarthritis of the ankle and/or foot (476726825) Arthritis of joint of lesser toe, left (M19.072) Active confirmed Problem Localized, primary osteoarthritis of the ankle and/or foot (702581211) Arthritis of joint of lesser toe, right (M19.071) Active confirmed Vital Signs Blood pressure diastolic 84 mm Hg 04/11/2025 Height 5ft7in in 04/11/2025 Blood pressure systolic 120 mm Hg 04/11/2025 Weight 155 lbs 04/11/2025 BMI 24.27 kg/m2 04/11/2025 Encounters [facility]counter [facility] Date [facility] [address] [facility]/27[facility] Isabell Perica Onychomycosis B35.1 ; Metatarsalgia, right foot M77.41 ; Pain in right toe(s) M79.674 ; Pain in left toe(s) M79.675 ; Right foot pain M79.671 ; Plantar wart B07.0 ; Xerosis of skin L85.3 ; Other hammer toe(s) (acquired), right foot M20.41 ; Other hammer toe(s) (acquired), left foot M20.42 and Hallux valgus of right foot M20.11 [facility] [address] 11/06/2024 Isabell Perica Onychomycosis B35.1 ; Tinea pedis of both feet B35.3 ; Pain in right toe(s) M79.674 ; Pain in left toe(s) M79.675 ; Right foot pain M79.671 ; Plantar wart B07.0 and Xerosis of skin L85.[address] [address] 01/28/2025 Isabell Perica Onychomycosis B35.1 ; Pain in right toe(s) M79.674 ; Pain in left toe(s) M79.675 ; Right foot pain M79.671 and Plantar wart B07.[address] [address] 04/11/2025 Isabell Perica Onychomycosis B35.1 ; Hallux [...] Details Provider Name:Isabell pinon, 06/27/2025 12:30:00 PM, [address] [place] [address], [phone], Insurance Providers Payer Name Payer Address Payer Phone Subscriber Number Group Number Insured Name Patient Relationship to Insured Coverage Start Date Coverage End Date A[employer] [address] [place] [address] [id number] WandaEliot hudson Self - patient is the insured 4 Medical (General) History Medical History History ICD Code CAD (Cholesterol) covid-19 Heart disease Measles Mumps Chicken pox Surgical History Surgery Date(Month/Year) hernia surgery 1964
--- OUTSIDE RECORDS SUMMARY | 2025-04-23 13:15 | XMS_ITS | Clinical Summary ---
Author Organization [facility] Address [address] [place] [address] Phone Care Team Providers Care Blind Installer Name Role Phone Nba De La Garza MD Primary Care Provider [phone] Allergies No known active allergies Medications ammonium [...] either. I reviewed his C/S MRI from [facility] with Dr. Barney, he has b/l C5-6 [...] 1:40 PM EDT Consult General Surgery - [address] [place] [phone] Bryan Solorio MD Non-recurrent unilateral inguinal [...] Description 07/14/2025 10:00 AM EDT Hospital Encounter [facility] [place] [address] [place] [phone] Bryan Solorio MD [address] [place] [phone] 07/14/2025 10:00 AM EDT - 07/14/2025 11:30 AM EDT Surgery [facility] [place] [address] [place] [phone] Bryan Solorio MD [address] [place] [phone] OPEN REPAIR LEFT INGUINAL HERNIA W/MESH [23292 (CPT )] 08/05/2025 11:15 AM EST Office Visit General Surgery [address] [address] Bryan Solorio MD [address] [place] [phone] Scheduled Procedures Name Priority Associated Diagnoses Date/Ti [...] topic Insurance [employer] MEDICARE ADVANTAGE Care Teams Blind Installer Relationship Specialty Start Date End Date Nba De La Garza MD [address] [place] [address] Dr Denny [place] PCP - General Internal Medicine 12/10/21
--- OUTSIDE RECORDS SUMMARY | 2025-04-23 13:16 | XMS_ITS | Patient Health Record ---
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
== END ==
LOC: HO.CARD 12:43
PROVIDERS: PCP Internal Medicine; Visit Provider Internal Medicine
DX: I48.92 Unspecified atrial flutter (principal)
CPT/HCPCS: 93242

== ENCOUNTER → 2025-04-23 12:47 | Outpatient (BNV) | payer MEDICARE, SELFPAY | PROVIDERS: PCP Internal Medicine; Visit Provider Internal Medicine | DX: I48.92 Unspecified atrial flutter (principal); I49.3 Ventricular premature depolarization | CPT/HCPCS: 93244 ==

== ENCOUNTER 2025-07-08 12:55 | Inpatient (IN) | payer MEDICARE, SELFPAY ==
--- NOTE | ~2025-07-08 | CT_ITS ---
CLINICAL HISTORY: chest pain, CT angiography chest with contrast. 3D Postprocessing. Comparison: None provided Findings: Cardiomegaly. Unremarkable thoracic aorta and great vessels. No aneurysm. No pulmonary artery filling defects. Hiatal hernia. No main or segmental pulmonary emboli identified. The lungs are under expanded. Bibasilar dependent subsegmental atelectasis. Trace bilateral pleural effusions. Calcified coronary atherosclerotic disease. Mild calcified atherosclerotic disease of the abdominal aorta. No acute fractures. IMPRESSION: 1. Cardiomegaly. 2. Trace bilateral pleural effusions. 3. Bibasilar dependent subsegmental atelectasis. 4. Hiatal hernia. 5. No main or segmental pulmonary emboli identified. This document has been electronically signed by: Haroldo Hardy MD on 07/09/2025 19:16:26
--- NOTE | ~2025-07-08 | XR_ITS ---
EXAMINATION: XR CHEST 2 VIEWS HISTORY: chest pain COMPARISON: There are no prior studies available for comparison. FINDINGS: PA and lateral views of the chest are submitted. There is linear subsegmental atelectasis versus scarring in the left midlung zone. The lungs are otherwise clear. There is no pleural effusion, pneumothorax, or pulmonary vascular congestion. The heart is normal in size. There is degenerative disc disease of the spine. XR/XR chest 2V IMPRESSION: Subsegmental atelectasis versus scarring in the left midlung zone. Electronically signed by: Yo Dubose MD 07/08/2025 02:08 PM EDT
--- NOTE | 2025-07-08 12:57 | ECG_ITS ---
Test Reason : cp Blood Pressure : */* mmHG Vent. Rate : 80 BPM Atrial Rate : 80 BPM P-R Int : 206 ms QRS Dur : 98 ms QT Int : 362 ms P-R-T Axes : 81 7 241 degrees QTcB Int : 417 ms Normal sinus rhythm Possible Inferior infarct , age undetermined Cannot rule out Anterior infarct , age undetermined T wave abnormality, consider lateral ischemia Abnormal ECG When compared with ECG of 01-Oct-2006 10:37, Premature ventricular complexes are no longer Present Non-specific change in ST segment in Anterior leads T wave inversion now evident in Inferior leads T wave inversion now evident in Anterolateral leads Referred By: Constance Oliva Electronically Signed By: Emeka Bowen
[2025-07-08 13:05] VITALS: BP 167/95; PULSE 78; RESP 20; TEMP 36.5; O2SAT 96; BMI 25.4
--- NOTE | 2025-07-08 13:06 | ED_ITS ---
HPI - General Adult General Chief complaint: Chest Pain Stated complaint: CP, cardiac procedure yesterday Time Seen by Provider: 07/08/25 16:11 Related Data Home Medications ?Medication ?Instructions ?Recorded ?Confirmed aspirin 81 mg tablet,delayed 81 mg PO DAILY 09/30/20 0 04/21/25 release Previous Rx's ?Medication ?Instructions ?Recorded atorvastatin 40 mg tablet 40 mg PO DAILY #90 tabs 06/18 apixaban 5 mg tablet (Eliquis) 5 mg PO BID 90 days #18 0 tabs 04/21/25 Allergies Allergy/AdvReac Type Severity Reaction Status Date / Time shellfish derived Allergy Unknown Unknown Verified 07/08/25 13:07 [facility] Past Medical History Medical History Hyperlipidemia Bicuspid aortic valve Atherosclerotic cardiovascular disease Surgical History History of colonoscopy (~03/17/17) History of hernia repair Family History Family History Father CVD (cardiovascular disease) Mother Atrial fibrillation CVD (cardiovascular disease) Social History Social History Housing: House Alcohol intake: current Alcohol intake frequency: 0-2 drinks per day Alcohol type: beer Patient Tobacco Use Status: Never used Tobacco Smoked in Last 30 Days: No e-Cigarette/Vaping Use: Never Used Use of substances other than those prescribed or required for medical reasons: No Advance Directives: Yes Advance Directives Information Provided: No Advance Directives on File: No Do you have a plan to hurt others: No Plan service: Yes Current occupational status: retired Cognitive needs: No Hearing needs: No Vision needs: No Physical Exam ED Vital Signs: Vital Signs - 24 hr 07/08/25 13:05 07/08/25 15:30 07/08/25 17:06 Temperature 97.7 F 98.2 F 99.5 F Pulse Rate 78 76 87 Respiratory Rate 20 24 H 17 Blood Pressure 167/95 H 154/98 H 149/92 H Pulse Oximetry 96 96 93 Oxygen Delivery Method Room Air Room Air Room Air BMI result Body Mass Index 25.4 Course Course Course Narrative: This is a rapid medical exam performed by Eva Oliva NP: Additional HPI, ROS, PE not included below will be deferred to primary provider. Patient is a 70y/o M s/p cardiac ablation yesterday at [facility] presenting with complaint of constant chest pain since 11:30/ States pain radiates to shoulders with deep inspiration. Never stopped his Xarelto. Plan: EKG, labs, CXR Medications Administered Discontinued Medications Generic Name Dose Route Start Last Admin Trade Name Caron PRN Reason Stop Dose Admin Hydromorphone HCl 0.5 mg 07/08/25 16:27 07/08/25 17:00 Hydromorphone Hcl 0.5 Mg/0.5 Ml Syringe IVPUSH 07/08/25 16:28 0.5 mg ONCE ONE Administration Protocol Ketorolac Tromethamine 15 mg 07/08/25 16:27 07/08/25 17:00 Ketorolac Tromethamine 15 Mg/Ml Vial IVPUSH 07/08/25 16:28 15 mg ONCE ONE Administration Medical Decision Making Lab Data 07/08/25 14:18 07/08/25 14:18 Labs: Lab Results 07/08/25 07/08/25 Range/Units 14:18 17:19 WBC 13.2 H (4.8-10.8) X10*3/uL RBC 5.12 (4.60-5.80) X10*6/uL Hgb 15.9 (14.0-18.0) g/dl Hct 45.9 (42.0-52.0) % MCV 89.6 (80.0-98.0) fL MCH 31.1 (27.0-33.0) pg MCHC 34.6 (31.0-36.0) g/dl RDW 12.6 (11.0-16.0) % Plt Count 256 (160-400) X10*3/uL MPV 8.9 L (9.4-12.4) fL Immature Gran % (Auto) 0.3 (0.0-0.4) % Neut % (Auto) 80.1 H (45-73) % Lymph % (Auto) 12.0 L (20-40) % [place] % (Auto) 6.7 (2-11) % Eos % (Auto) 0.7 (0-4) % Baso % (Auto) 0.2 (0-2) % Lymph # (Auto) 1.6 (1.2-4.9) X10*3/uL [place] # (Auto) 0.9 (0.1-1.2) X10*3/uL Eos # (Auto) 0.1 (0.0-0.4) X10*3/uL Baso # (Auto) 0.0 (0.0-0.2) X10*3/uL Abs Immat Gran (auto) 0.04 H (0.00-0.03) X10*3/uL Absolute Neuts (auto) 10.6 H (2.0-8.3) x10*3/uL Absolute Nucleated RBC 0.000 (0.0-0.012) X10*3/uL Nucleated RBC % (auto) 0.0 (0.0-0.2) /100WBC PT 18.0 H D (10.9-12.4) SEC INR 1.6 H (0.9-1.1) Sodium 143 (135-145) mmol/L Potassium 4.0 (3.3-5.1) mmol/L Chloride 107 (96-108) mmol/L Carbon Dioxide 30 H (22-29) mmol/L Anion Gap 10 L (12-20) BUN 22 H (9-16) mg/dL Creatinine 1.06 (0.5-1.4) mg/dL Estim Creat Clear Calc 62.3 Estimated GFR > 60 Random Glucose 112 (60-115) mg/dL Calcium 9.7 D (8.4-10.2) mg/dL Magnesium 2.0 (1.6-2.6) mg/dL Total Bilirubin 0.6 (0.0-1.0) mg/dL AST 25 (5-37) U/L ALT 30 (0-40) U/L Alkaline Phosphatase 72 (39-117) U/L Troponin I High Sens 234.9 H* 286.0 H* (<3.5-35.0) ng/L Total Protein 7.7 (6.5-8.0) g/dL Albumin 4.9 (3.5-5.0) g/dL Discharge Plan Discharge Clinical Impression: Pericarditis Patient Disposition: Admitted As Inpatient Print Language: Italian
[2025-07-08 14:23] LABS: Hematocrit 45.9 % (42.0-52.0); Hemoglobin 15.9 g/dl (14.0-18.0); Imm Gran Abs Auto 0.04 X10*3/uL (0.00-0.03); Imm Gran Pct Auto 0.3 % (0.0-0.4); Lymphocytes Absolute Auto 1.6 X10*3/uL (1.2-4.9); MANUAL DIFF FLAG NO; Mean Corpuscular HGB Conc 34.6 g/dl (31.0-36.0); Mean Corpuscular Hemoglobin 31.1 pg (27.0-33.0); Mean Corpuscular Volume 89.6 fL (80.0-98.0); NRBC Abs Auto 0.000 X10*3/uL (0.0-0.012); NRBC Pct Auto 0.0 /100WBC (0.0-0.2); Platelet Count 256 X10*3/uL (160-400); Red Blood Count 5.12 X10*6/uL (4.60-5.80); White Blood Count 13.2 X10*3/uL (4.8-10.8)
[2025-07-08 14:32] LABS: INTERNATIONAL NORM RATIO 1.6 (0.9-1.1); Prothrombin Time 18.0 SEC (10.9-12.4)
[2025-07-08 14:39] LABS: Alanine Aminotransferase 30 U/L (0-40); Albumin Level 4.9 g/dL (3.5-5.0); Alkaline Phosphatase 72 U/L (39-117); Anion Gap 10 (12-20); Aspartate Amino Transferase 25 U/L (5-37); Blood Urea Nitrogen 22 mg/dL (9-16); Calcium 9.7 mg/dL (8.4-10.2); Carbon Dioxide 30 mmol/L (22-29); Chloride 107 mmol/L (96-108); Creatinine Clr Calc Pharmacy 62.3; Estimated Glomerular Filt Rate > 60; Magnesium 2.0 mg/dL (1.6-2.6); Potassium 4.0 mmol/L (3.3-5.1); Sodium 143 mmol/L (135-145); Total Protein 7.7 g/dL (6.5-8.0)
[2025-07-08 15:30] VITALS: BP 154/98; PULSE 76; RESP 24; TEMP 36.8; O2SAT 96
--- NOTE | 2025-07-08 15:39 | PC.NURSE ---
Pt reports worsening chest pain since triage. Pain 10/10. Better with sitting forward. Worse lying down and inspiration. Yesterday had an ablation with femoral approach.
--- NOTE | 2025-07-08 16:01 | PC.NURSE ---
This RN verbally touched base with LICENSED AND CERTIFIED MIDWIFE in triage assessing why a trop was not order, verbal order to add on lab place, lab called and notified, at this time lab to notify ED staff if they are unable to run the test.
[2025-07-08 16:25] LABS: Troponin-I High Sensitivity 234.9 ng/L (<3.5-35.0)
--- NOTE | 2025-07-08 16:27 | ED.CHESTPAIN ---
HPI - Chest Pain General Chief Complaint: Chest Pain Stated Complaint: CP, cardiac procedure yesterday Time Seen by Provider: 07/08/25 16:11 History of Present Illness HPI narrative: Patient is a 70-year-old male presented today after having an ablation done yesterday. Complaining of chest pain to the mid chest area worse when he takes a deep breath. There is no fever no chills. The symptoms started about 11:00. Patient had the procedure yesterday. Is currently on Xarelto. Last dose of Xarelto was yesterday. There is no fever no chills. There is no diaphoresis there is no worsening shortness of breath. There is no palpitation. Patient from home. No leg swelling. No history of blood clots in the past. Came in because of 07/04 pain that is worse with position. Related Data Home Medications ?Medication ?Instructions ?Recorded ?Confirmed aspirin 81 mg tablet,delayed 81 mg PO DAILY 09/30/20 04/21/25 release Previous Rx's ?Medication ?Instructions ?Recorded atorvastatin 40 mg tablet 40 mg PO DAILY #90 tabs 09/02/24 apixaban 5 mg tablet (Eliquis) 5 mg PO BID 90 days #180 tabs 04/21/25 Allergies Allergy/AdvReac Type Severity Reaction Status Date / Time shellfish derived Allergy Unknown Unknown Verified 07/08/25 13:07 Review of Systems Review of Systems: Positive chest pain No new shortness of breath PMFSH Past Medical History Attestation statement: The following information was validated with the patient. Source: unable to obtain Medical History Hyperlipidemia Bicuspid aortic valve Atherosclerotic cardiovascular disease Surgical History History of colonoscopy (~03/17/17) History of hernia repair Family History Family History Father CVD (cardiovascular disease) Mother Atrial fibrillation CVD (cardiovascular disease) Social History Social History Housing: House Alcohol intake: current Alcohol intake frequency: 0-2 drinks per day Alcohol type: beer Patient Tobacco Use Status: Never used Tobacco Smoked in Last 30 Days: No e-Cigarette/Vaping Use: Never Used Use of substances other than those prescribed or required for medical reasons: No Advance Directives: Yes Advance Directives Information Provided: No Advance Directives on File: No Do you have a plan to hurt others: No Plan service: Yes Current occupational status: retired Cognitive needs: No Hearing needs: No Vision needs: No Physical Exam Exam: Exam: Appearance: Alert. Oriented X3. No acute distress. Eyes: Pupils equal, round and reactive to light. ENT: Pharynx normal. Neck: Normal inspection. Neck supple. No lymph nodes noted. No crepitus CVS: Normal heart rate and rhythm. Pulses normal. Normal S1 and S2 Respiratory: No respiratory distress. Breath sounds normal. No Wheezing. No rales Abdomen: Soft and nontender. No rigidity. No distention. good BS x4 Skin: Skin warm and dry. Normal skin color. Normal skin turgor. Extremities: No lower extremity edema. Neurovascular intact to all extremities. No Lacerations. No Rash Neuro: Oriented X 3. No motor deficit. No sensory deficit. Moving all extermities. No slurred speech Vital Signs: Vital Signs: Last Vital Signs Temp 99.5 F 07/08/25 17:06 Pulse 87 07/08/25 17:06 Resp 17 07/08/25 17:06 BP 149/92 H 07/08/25 17:06 Pulse Ox 93 07/08/25 17:06 O2 Del Method Room Air 07/08/25 17:06 BMI result Body Mass Index 25.4 Medications Administered Discontinued Medications Generic Name Dose Route Start Last Admin Trade Name Caron PRN Reason Stop Dose Admin Hydromorphone HCl 0.5 mg 07/08/25 16:27 07/08/25 17:00 Hydromorphone Hcl 0.5 Mg/0.5 Ml Syringe IVPUSH 07/08/25 16:28 0.5 mg ONCE ONE Administration Protocol Ketorolac Tromethamine 15 mg 07/08/25 16:27 07/08/25 17:00 Ketorolac Tromethamine 15 Mg/Ml Vial IVPUSH 07/08/25 16:28 15 mg ONCE ONE Administration Medical Decision Making Medical Decision Making MDM Narrative: Patient presented today with have sharp chest pain status post ablation done yesterday. Question pericarditis. My interpretation patient's EKG showed a sinus rhythm heart rate was 80 NM QRS QTC within normal limits there is no acute ST segment elevation it is unchanged from previous EKG. My interpretation patient's chest x-ray is grossly negative there is no evidence for pneumonia no evidence for pneumothorax. Radiology's review of the x-ray showed atelectasis. Patient's troponin elevated. Most likely secondary to the ablation from yesterday. Will repeat enzymes. A dose of Toradol was given. A dose of Dilaudid was given for the extreme pain. Will monitor very carefully. Will consult Cardiology Patient has 2 sets of troponin are both in the 200s range. Chest pain improved with NSAIDs. Likely caused by pericarditis. Consulted cardiology. Will admit for further evaluation and admit for echo in a.m.. Hemodynamically stable well-appearing will admit. Differential Diagnosis Differential Diagnoses: The differential diagnosis associated with the presentation includes Chest pain, ACS, pneumonia, pneumothorax Admission/Observation Consideration of admission/observation: Escalation of care including admission/observation considered Consult Healthcare Provider Management of the patient was discussed with: Freight Tallier Lab Data [facility] Lab Attestation statement: I reviewed the patient's lab results. 07/08/25 14:18 07/08/25 14:18 Labs: Lab Results 07/08/25 07/08/25 Range/Units 14:18 17:19 WBC 13.2 H (4.8-10.8) X10*3/uL RBC 5.12 (4.60-5.80) X10*6/uL Hgb 15.9 (14.0-18.0) g/dl Hct 45.9 (42.0-52.0) % MCV 89.6 (80.0-98.0) fL MCH 31.1 (27.0-33.0) pg MCHC 34.6 (31.0-36.0) g/dl RDW 12.6 (11.0-16.0) % Plt Count 256 (160-400) X10*3/uL MPV 8.9 L (9.4-12.4) fL Immature Gran % (Auto) 0.3 (0.0-0.4) % Neut % (Auto) 80.1 H (45-73) % Lymph % (Auto) 12.0 L (20-40) % [place] % (Auto) 6.7 (2-11) % Eos % (Auto) 0.7 (0-4) % Baso % (Auto) 0.2 (0-2) % Lymph # (Auto) 1.6 (1.2-4.9) X10*3/uL [place] # (Auto) 0.9 (0.1-1.2) X10*3/uL Eos # (Auto) 0.1 (0.0-0.4) X10*3/uL Baso # (Auto) 0.0 (0.0-0.2) X10*3/uL Abs Immat Gran (auto) 0.04 H (0.00-0.03) X10*3/uL Absolute Neuts (auto) 10.6 H (2.0-8.3) x10*3/uL Absolute Nucleated RBC 0.000 (0.0-0.012) X10*3/uL Nucleated RBC % (auto) 0.0 (0.0-0.2) /100WBC PT 18.0 H D (10.9-12.4) SEC INR 1.6 H (0.9-1.1) Sodium 143 (135-145) mmol/L Potassium 4.0 (3.3-5.1) mmol/L Chloride 107 (96-108) mmol/L Carbon Dioxide 30 H (22-29) mmol/L Anion Gap 10 L (12-20) BUN 22 H (9-16) mg/dL Creatinine 1.06 (0.5-1.4) mg/dL Estim Creat Clear Calc 62.3 Estimated GFR > 60 Random Glucose 112 (60-115) mg/dL Calcium 9.7 D (8.4-10.2) mg/dL Magnesium 2.0 (1.6-2.6) mg/dL Total Bilirubin 0.6 (0.0-1.0) mg/dL AST 25 (5-37) U/L ALT 30 (0-40) U/L Alkaline Phosphatase 72 (39-117) U/L Troponin I High Sens 234.9 H* 286.0 H* (<3.5-35.0) ng/L Total Protein 7.7 (6.5-8.0) g/dL Albumin 4.9 (3.5-5.0) g/dL Independent Interpretation I performed an independent interpretation of an: EKG (Sinus heart rate is 80 NM QRS QTC normal no acute ST segment elevation) and Plain X-Ray (Chest x-ray grossly negative) Radiology Impression Discussion of test interpretation with radiology: I have reviewed the radiologist's reading. Independent Historian Clinical information obtained from an independent historian. History obtained from or confirmed by: Spouse External Record Review External record reviewed: Office record Chronic Conditions History of atrial fibrillation Critical Care Time Critical Care Time Critical Care Time: Yes Total Critical Care Time: 40 Attestation: I have personally provided 40 minutes of critical care time exclusive of time spent on separately billable procedures. ?Time includes review of lab data, radiology results, discussion with consultants, and monitoring for potential decompensation. ?Interventions were performed as documented above Discharge Plan Discharge Clinical Impression: Pericarditis Patient Disposition: Admitted As Inpatient Print Language: Nigerian
--- NOTE | 2025-07-08 17:04 | PC.NURSE ---
Pt mildly nauseous immediately after dilaudid. Pt's chest pain 8/10 before pain meds.
[2025-07-08 17:06] VITALS: BP 149/92; PULSE 87; RESP 17; TEMP 37.5; O2SAT 93
--- NOTE | 2025-07-08 17:14 | PC.NURSE ---
This RN alerted [facility] that initial elevated trop was from the initial labs drawn at 1430, repeat order placed at this time. Tech in room to draw lab
[2025-07-08 17:52] LABS: Troponin-I High Sensitivity 286.0 ng/L (<3.5-35.0)
--- OUTSIDE RECORDS SUMMARY | 2025-07-08 18:25 | XMS_ITS | Clinical Summary ---
Author Organization [address] [facility] Address [address] [place] [address] Phone Care Team Providers Care Fur Dressing Supervisor Name Role Phone Nba De La Garza MD Primary Care Provider [phone] Allergies No known active allergies Medications ammonium [...] either. I reviewed his C/S MRI from [facility] with Dr. Barney, he has b/l C5-6 [...] Encounters Date Type Department Care Team Description 05/09/2025 Telephone General Surgery [address] [address] Bryan Solorio MD 04/15/2025 1:40 PM EDT Consult [facility] [address] [address] Bryan Solorio MD Non-recurrent unilateral inguinal hernia without obstruction or gangrene from Last 3 Months Immunizations Immunization Administration Dates Next Due Influenza Quadravalent, MDCK [...] subun it RSVpreF, 0.5mL, Preservative Free (Arexvy) 50yo and older 08/25/2023 TD, Adsorbed, Preservative Free [...] 12/10/2021 1:39 PM EDT Plan of Treatment Scheduled Procedures Name Priority Associated Diagnoses Date/Ti me REPAIR HERNIA INGUINAL Non-recurrent unilateral inguinal hernia without obstruction or gangrene Health Maintenance Due Date Last Done Comments Colorectal Cancer Screening: Colonoscopy 1955 DTaP,Tdap,and Td Vaccines (1 - Tdap) 09/26/2006 09/25/2006 Depression Screening 09/25/2024 Cholesterol Screening (Lipid Panel) 04/11/2025 Falls Risk Assessment 04/11/2025 Hepatitis C Screening 04/11/2025 Medicare Annual Wellness Visit 04/11/2025 Social Influencers of Health Screening 04/11/2025 COVID-19 Vaccine ( season) 2025 07/29/2021, 11/10/2020, 10/20/2020 Influenza Vaccine (#1) 2025 , 05/26/2024, 06/18/2020, [...] topic Insurance [employer]VANTAGE Care Teams Fur Dressing Supervisor Relationship Specialty Start Date End Date Nba De La Garza MD [address] [place] [address] Dr Denny [place] PCP - General Internal Medicine 12/10/21
--- OUTSIDE RECORDS SUMMARY | 2025-07-08 18:25 | XMS_ITS | Patient Health Record ---
Author Organization [facility] Address [address] [place] [address] Care Team Providers Care Posting Clerk Name Role Phone Holli (RETIRED) Nba WILKES Primary Care Provide r Yo Camargo [phone] Allergies Allergen (clinical drug ingredient) Drug/Non Drug Allergy documented on EMR Reaction Allergy Type Onset Date Status pollen,cats and dogs (uncoded) Unknown Allergy Active Reason For Referral No Information Medications Medication SIG (Take, Route, Frequency, Duration) Notes Start Date End Date Status Aspir-81 Active Colyte with Flavor Packs 240 GM As directed Orally Over the specified time.; Duration: 1 day(s) 01/13/2017 Active ibuprofen prn Active Problems Problem Type SNOMED Code ICD Code Onset Dates Problem Status W/U Status Risk Notes Problem Colon cancer screening (162418283) Colon cancer screening (Z12.11) Active confirmed Problem Pre-procedure evaluation check (918603431) Encounter for other preprocedural examination (Z01.818) Active confirmed Problem Long-term current use of antiplatelet drug (074077403631837 ) shelter (current) use of aspirin (Z79.82) Active confirmed Plan Of Treatment Future Test Test Name Order Date COLONOSCOPY 01/13/2017 Insurance Providers Payer Name Payer Address Payer Phone Subscriber Number Group Number Insured Name Patient Relationship to Insured Coverage Start Date Coverage End Date [facility] [employer] [facility] [address] [address] [place], [place] [id number] KITA HERNANDEZ Self - patient is the insured Medical (General) History Medical History History ICD Code Denies IN,DM,CVA,Lung disease,renal dise ase Surgical History Surgery Date(Month/Year) hernia - age 9 1962
--- OUTSIDE RECORDS SUMMARY | 2025-07-08 18:25 | XMS_ITS | Patient Health Record ---
Author Organization [facility] Address [address] [place] [address] Care Team Providers Care Certified First Assistant Name Role Phone Elmo Sol Primary Care Provider Isabell Bedoya [phone] Allergies Allergen (clinical drug ingredient) Drug/Non Drug Allergy documented on EMR Reaction Allergy Type Onset Date Status Cat dander cats (uncoded) Unknown Allergy Acti ve Dog dander dogs (uncoded) Unknown Allergy Acti ve Reason For Referral No Information Medications Medication SIG (Take, Route, Frequency, Duration) Notes Start Date End Date Status Ciclopirox Olamine 0.77 % 1 application Externally Twice a day to skin of feet including between the toes; Duration: 30 days Active Xarelto 20 MG 1 tablet with food O rally Once a day Active Aspirin 81 MG 1 tablet Orally Once a day Active Atorvastatin Calcium 40 MG 1 tablet Oral ly Once a day Active Ammonium Lactate 12 % 1 application Exte rnally to affected areas of dry skin to feet except for between the toes Twice a day; Duration: 30 days Active Immunizations Vaccine Route Administration Date Status [...] Problem Acquired hammer toe of right foot (9547198639178287) Other hammer toe(s) (acquired), right foot (M20.41) Active confirmed Problem Acquired hammer toe of left foot (5942891962966309) Other hammer toe(s) (acquired), left foot (M20.42) Active confirmed Problem Plantar wart (42520009) Plantar wart (B07.0) Active confirmed Problem Acquired right hallux valgus (869646696882726) Hallux valgus of right foot (M20.11) Active confirmed Problem Localized, primary osteoarthritis of the ankle and/or foot (522116035) Arthritis of joint of lesser toe, left (M19.072) Active confirmed Problem Localized, primary osteoarthritis of the ankle and/or foot (993583461) Arthritis of joint of lesser toe, right (M19.071) Active confirmed Vital Signs Blood pressure diastolic 83 mm Hg 06/27/2025 Height 5ft7in in 06/27/2025 Blood pressure systolic 120 mm Hg 06/27/2025 Weight 160 lbs 06/27/2025 BMI 25.06 kg/m2 06/27/2025 Encounters Encounter Location Date Provider Diagnosis [address] [address] 08/27/2024 Isabell Perica Onychomycosis B35.1 ; Metatarsalgia, right foot M77.41 ; Pain in right toe(s) M79.674 ; Pain in left toe(s) M79.675 ; Right foot pain M79.671 ; Plantar wart B07.0 ; Xerosis of skin L85.3 ; Other hammer toe(s) (acquired), right foot M20.41 ; Other hammer toe(s) (acquired), left foot M20.42 and Hallux valgus of right foot M20.11 [facility] [address] 11/06/2024 Isabell Perica Onychomycosis B35.1 ; Tinea pedis of both feet B35.3 ; Pain in right toe(s) M79.674 ; Pain in left toe(s) M79.675 ; Right foot pain M79.671 ; Plantar wart B07.0 and Xerosis of skin L85.[address] [address] 01/28/2025 Isabell Perica Onychomycosis B35.1 ; Pain in right toe(s) M79.674 ; Pain in left toe(s) M79.675 ; Right foot pain M79.671 and Plantar wart B07.[address] [address] 04/11/2025 Isabell Perica Onychomycosis B35.1 ; Hallux valgus of right foot M20.11 ; Pain in right toe(s) M79.674 ; Pain in left toe(s) M79.675 ; Right foot pain M79.671 ; Plantar wart B07.0 and Other hammer toe(s) (acquired), right foot M20.[address] [address] 06/27/2025 Isabell Cordovaa Onychomycosis B35.1 ; Pain in right toe(s) M79.674 ; Pain in left toe(s) M79.675 ; Right foot pain M79.671 and Plantar wart B07.0 [facility] [address] [address] 06/27/2025 Isabell Bedoya Assessments Encounter Date Diagnosis (ICD Code) Assessment [...] - M20.11) 04/11/2025 Onychomycosis (ICD-10 - B35.1) 06/27/2025 Pain in right toe(s) (ICD-10 - M79.674) 06/27/2025 Onychomycosis (ICD-10 - B35.1) 06/27/2025 Pain in left toe(s) (ICD-10 - M79.675) 01/28/2025 Pain in left toe(s) (ICD-10 - M79.675) 04/11/2025 Pain in right toe(s) (ICD-10 - M79.674) 11/06/2024 Pain in right toe(s) (ICD-10 - M79.674) 08/27/2024 Pain in right toe(s) (ICD-10 - M79.674) 08/27/2024 Pain in left toe(s) (ICD-10 - M79.675) 11/06/2024 Pain in left toe(s) (ICD-10 - M79.675) 04/11/2025 Pain in left toe(s) (ICD-10 - M79.675) 01/28/2025 Right foot pain (ICD-10 - M79.671) 06/27/2025 Right foot pain (ICD-10 - M79.671) 06/27/2025 Plantar wart (ICD-10 - B07.0) 04/11/2025 Right foot pain (ICD-10 - M79.671) [...] Treatment Next Appt Details Provider Name:Isabell pinon, 10/07/2025 09:15:00 AM, [address] [place] [address], [phone], Insurance Providers Payer Name Payer Address Payer Phone Subscriber Number Group Number Insured Name Patient Relationship to Insured Coverage Start Date Coverage End Date [facility] [id number] [place] [phone] [id number] Eliot Tobin Self - patient is the insured 4 Medical (General) History Medical History History ICD Code CAD (Cholesterol) covid-19 Heart disease Measles Mumps Chicken pox Surgical History Surgery Date(Month/Year) hernia surgery 1962
--- NOTE | 2025-07-08 19:23 | ED_ITS ---
HPI - Chest Pain General Chief Complaint: Chest Pain Stated Complaint: CP, cardiac procedure yesterday Time Seen by Provider: 07/08/25 16:11 Related Data Home Medications ?Medication ?Instructions ?Recorded ?Confirmed aspirin 81 mg tablet,delayed 81 mg PO DAILY 09/30/20 0 04/21/25 release Previous Rx's ?Medication ?Instructions ?Recorded atorvastatin 40 mg tablet 40 mg PO DAILY #90 tabs 06/18 apixaban 5 mg tablet (Eliquis) 5 mg PO BID 90 days #18 0 tabs 04/21/25 Allergies Allergy/AdvReac Type Severity Reaction Status Date / Time shellfish derived Allergy Unknown Unknown Verified 07/08/25 13:07 [facility] Past Medical History Medical History Hyperlipidemia Bicuspid aortic valve Atherosclerotic cardiovascular disease Surgical History History of colonoscopy (~03/17/17) History of hernia repair Family History Family History Father CVD (cardiovascular disease) Mother Atrial fibrillation CVD (cardiovascular disease) Social History Social History Housing: House Alcohol intake: current Alcohol intake frequency: 0-2 drinks per day Alcohol type: beer Patient Tobacco Use Status: Never used Tobacco Smoked in Last 30 Days: No e-Cigarette/Vaping Use: Never Used Use of substances other than those prescribed or required for medical reasons: No Advance Directives: Yes Advance Directives Information Provided: No Advance Directives on File: No Do you have a plan to hurt others: No Plan service: Yes Current occupational status: retired Cognitive needs: No Hearing needs: No Vision needs: No Physical Exam 2 Vital Signs: Vital Signs: Last Vital Signs Temp 99.5 F 07/08/25 17:06 Pulse 87 07/08/25 17:06 Resp 17 07/08/25 17:06 BP 149/92 H 07/08/25 17:06 Pulse Ox 93 07/08/25 17:06 O2 Del Method Room Air 07/08/25 17:06 BMI result Body Mass Index 25.4 Medications Administered Discontinued Medications Generic Name Dose Route Start Last Admin Trade Name Freq PRN Reason Stop Dose Admin Hydromorphone HCl 0.5 mg 07/08/25 16:27 07/08/25 17:00 Hydromorphone Hcl 0.5 Mg/0.5 Ml Syringe IVPUSH 07/08/25 16:28 0.5 mg ONCE ONE Administration Protocol Ketorolac Tromethamine 15 mg 07/08/25 16:27 07/08/25 17:00 Ketorolac Tromethamine 15 Mg/Ml Vial IVPUSH 07/08/25 16:28 15 mg ONCE ONE Administration Medical Decision Making Lab Data 07/08/25 14:18 07/08/25 14:18 Labs: Lab Results 07/08/25 07/08/25 Range/Units 14:18 17:19 WBC 13.2 H (4.8-10.8) X10*3/uL RBC 5.12 (4.60-5.80) X10*6/uL Hgb 15.9 (14.0-18.0) g/dl Hct 45.9 (42.0-52.0) % MCV 89.6 (80.0-98.0) fL MCH 31.1 (27.0-33.0) pg MCHC 34.6 (31.0-36.0) g/dl RDW 12.6 (11.0-16.0) % Plt Count 256 (160-400) X10*3/uL MPV 8.9 L (9.4-12.4) fL Immature Gran % (Auto) 0.3 (0.0-0.4) % Neut % (Auto) 80.1 H (45-73) % Lymph % (Auto) 12.0 L (20-40) % [place] % (Auto) 6.7 (2-11) % Eos % (Auto) 0.7 (0-4) % Baso % (Auto) 0.2 (0-2) % Lymph # (Auto) 1.6 (1.2-4.9) X10*3/uL [place] # (Auto) 0.9 (0.1-1.2) X10*3/uL Eos # (Auto) 0.1 (0.0-0.4) X10*3/uL Baso # (Auto) 0.0 (0.0-0.2) X10*3/uL Abs Immat Gran (auto) 0.04 H (0.00-0.03) X10*3/uL Absolute Neuts (auto) 10.6 H (2.0-8.3) x10*3/uL Absolute Nucleated RBC 0.000 (0.0-0.012) X10*3/uL Nucleated RBC % (auto) 0.0 (0.0-0.2) /100WBC PT 18.0 H D (10.9-12.4) SEC INR 1.6 H (0.9-1.1) Sodium 143 (135-145) mmol/L Potassium 4.0 (3.3-5.1) mmol/L Chloride 107 (96-108) mmol/L Carbon Dioxide 30 H (22-29) mmol/L Anion Gap 10 L (12-20) BUN 22 H (9-16) mg/dL Creatinine 1.06 (0.5-1.4) mg/dL Estim Creat Clear Calc 62.3 Estimated GFR > 60 Random Glucose 112 (60-115) mg/dL Calcium 9.7 D (8.4-10.2) mg/dL Magnesium 2.0 (1.6-2.6) mg/dL Total Bilirubin 0.6 (0.0-1.0) mg/dL AST 25 (5-37) U/L ALT 30 (0-40) U/L Alkaline Phosphatase 72 (39-117) U/L Troponin I High Sens 234.9 H* 286.0 H* (<3.5-35.0) ng/L Total Protein 7.7 (6.5-8.0) g/dL Albumin 4.9 (3.5-5.0) g/dL Discharge Plan Discharge Clinical Impression: Pericarditis Patient Disposition: Admitted As Inpatient
--- NOTE | 2025-07-08 19:24 | PM.IMHP ---
History of Present Illness Date of Service: 07/08/25 Attending physician on admission: Emily Mondragon Chief Complaint: chest pain 70-year-old male with past medical history a flutter on Xarelto diagnosed March 2025 status post ablation 07/07/2025 at [facility], right inguinal hernia repair age 9, current left inguinal hernia with upcoming repair, hyperlipidemia, bicuspid aortic valve, bradycardia(patient is an avid athlete - runner and biker) reports having a successful ablation at [facility] yesterday. Patient was discharged home. Patient stated the procedure took approximately 1 hour and patient was under anesthesia for the procedure. Approximately 11:00 this morning patient was started having increased chest pain that radiated to both shoulders with pain associated with deep breathing. Patient also reporting a productive cough with yellow sputum. Patient denies any recent travel or exposure to anyone with upper respiratory illness. Patient became so concerned that he had his drive him to the closest ED which was [facility]. Workup in the ED included chest x-ray which noted no cardiomegaly but atelectasis with possible lung scarring. ED provider contacted Cardiology, Dr. Hendrickson at [facility] and that ocean export coordinator reach out to the ocean export coordinator at [facility], Dr. Mario Grissom and plan was made for patient to be admitted here at [facility] for pericarditis secondary to ablation. Patient has had an increase in his troponins, 234 then 286. EKG negative for diffuse ST elevations. Patient currently in sinus rhythm. Hemodynamics otherwise stable. No obvious signs of tamponade. There is no friction rub on auscultation of the heart. Echo is pending and has been ordered stat but may not be done until the a.m.. Patient did receive 1 dose of Toradol IV at 16:30 and patient states pain has completely resolved although it still hurts to take a deep breath. Plan is to admit the patient for pericarditis secondary to ablation to telemetry bed. Review of Systems Review of Systems: Patient currently denies any active chest pain at rest but states that it does hurt to take a deep breath. Patient denies any shortness of breath at rest as well. Patient is not having any nausea, vomiting, diarrhea or constipation. Patient denies any lower leg pain. Patient is not having any abdominal pain or problems related to his active left inguinal hernia. Yes all other systems are reviewed and are negative [facility] Medical History Bradycardia Atrial flutter Hyperlipidemia Bicuspid aortic valve Atherosclerotic cardiovascular disease Cognitive capacity: Alert and orientated x3 Functional capacity: independent ambulation Family History Father CVD (cardiovascular disease) Mother Atrial fibrillation CVD (cardiovascular disease) Surgical History H/O right inguinal hernia repair History of colonoscopy (~03/17/17) History of hernia repair Social History Housing: House Alcohol intake: current Alcohol intake frequency: 0-2 drinks per day Alcohol type: beer Patient Tobacco Use Status: Never used Tobacco Smoked in Last 30 Days: No e-Cigarette/Vaping Use: Never Used Use of substances other than those prescribed or required for medical reasons: No Advance Directives: Yes Advance Directives Information Provided: No Advance Directives on File: No Do you have a plan to hurt others: No Plan service: Yes Current occupational status: retired Cognitive needs: No Hearing needs: No Vision needs: No Ebola Risk: Travel/Contact With Anyone From Affected Area/s: No Has Patient Experienced Ebola Symptoms: No Meds Allergies Allergy/AdvReac Type Severity Reaction Status Date / Time shellfish derived Allergy Unknown Unknown Verified 07/08/25 13:07 Active Medications: Current Medications Acetaminophen (Acetaminophen 325 Mg Tablet) 650 mg PO Q6H PRN PRN Reason: Pain, Mild 1-3,fever,headache Albuterol/Ipratropium (Albuterol/Iprat 2.5/0.5mg 3 Ml Ampul.Neb) 3 ml INHALE Q4H PRN PRN Reason: Shortness of Breath/Wheezing Calcium Carbonate (Calcium Carbonate 750 Mg Tab.Chew) 750 mg PO Q4H PRN PRN Reason: Heartburn Hydromorphone HCl (Hydromorphone Hcl 0.5 Mg/0.5 Ml Syringe) 0.5 mg IVPUSH Q4H PRN; Protocol PRN Reason: Pain, Severe (Pain Scale 7-10) Sodium Chloride (Ns) 1,000 mls @ 100 mls/hr IVCONT .Q10H CUAUHTEMOC Ketorolac Tromethamine (Ketorolac Tromethamine 15 Mg/Ml Vial) 15 mg IVPUSH Q6H PRN PRN Reason: Pain, Moderate(Pain Scale 4-6) Magnesium Hydroxide (Milk Of Magnesia 30 Ml Oral.Susp) 30 ml PO DAILY PRN PRN Reason: Constipation Melatonin (Melatonin 3 Mg Tablet) 6 mg PO BEDTIME PRN PRN Reason: Insomnia Ondansetron HCl (Ondansetron Hcl 4 Mg/2 Ml Vial) 4 mg IVPUSH Q8H PRN PRN Reason: Nausea and Vomiting Polyethylene Glycol (Polyethylene Glycol 3350 17 Gm Powd.Pack) 17 gm PO DAILY PRN PRN Reason: Constipation Senna (Sennosides 8.6 Mg Tablet) 17.2 mg PO BEDTIME CUAUHTEMOC Sodium Chloride (0.9 % Sodium Chloride Flush 3 Ml Syringe) 3 ml IVFLUSH QSHIFT [facility] Home Medications ?Medication ?Instructions ?Recorded ?Confirmed ?Last Taken ?Type aspirin 81 mg tablet,delayed 81 mg PO DAILY 09/30/20 04/21/25 Unknown History release Physical Exam Vital Signs and Narrative: Vital Signs: Last Vital Signs Temp 99.5 F 07/08/25 17:06 Pulse 87 07/08/25 17:06 Resp 17 07/08/25 17:06 BP 149/92 H 07/08/25 17:06 Pulse Ox 93 07/08/25 17:06 O2 Del Method Room Air 07/08/25 17:06 BMI result Body Mass Index 25.4 Alert and orientated X3, able to give good history. Neuro: CN II-X11 intact, no deficits, visual acuity intact EYES: PERRLA, EOM intact, sclerae nonicteric, conjunctiva pink ENT: hearing intact, no issues with swallowing, uvula midline, lips moist, nares patent no epistaxis Cardiac: S1 S2 RRR, no murmur, no rub, no JVD, no edema in Lower ext Pulmonary: lungs diminished bilaterally, no adventitious sounds Abdominal: BS active in all 4 quadrants, no guarding, tenderness, rebounding MSK: strength 5/5 upper and lower extremities : no CVA tenderness no bladder distension Extremities: no edema in lower extremities, PT and DP pulses palpable +2 Psych: mood stable, judgement and insight good Skin: No new rashes or lesions Results Labs 07/08/25 14:18 07/08/25 14:18 Labs: Laboratory Results - last 24 hr 07/08/25 07/08/25 14:18 17:19 MCV 89.6 MCH 31.1 MCHC 34.6 RDW 12.6 Plt Count 256 MPV 8.9 L Immature Gran % (Auto) 0.3 Neut % (Auto) 80.1 H Lymph % (Auto) 12.0 L [place] % (Auto) 6.7 Eos % (Auto) 0.7 Baso % (Auto) 0.2 Lymph # (Auto) 1.6 [place] # (Auto) 0.9 Eos # (Auto) 0.1 Baso # (Auto) 0.0 Abs Immat Gran (auto) 0.04 H Absolute Neuts (auto) 10.6 H Absolute Nucleated RBC 0.000 Nucleated RBC % (auto) 0.0 PT 18.0 H D INR 1.6 H Anion Gap 10 L Estim Creat Clear Calc 62.3 Estimated GFR > 60 Random Glucose 112 Calcium 9.7 D Magnesium 2.0 Total Bilirubin 0.6 AST 25 ALT 30 Alkaline Phosphatase 72 Troponin I High Sens 234.9 H* 286.0 H* Total Protein 7.7 Albumin 4.9 ECG Attestation: I personally reviewed and interpreted this ECG as follows: (Normal sinus rhythm, T-wave abnormality QTC 417) Prior ECG tracings: available for review Imaging Radiologist's Impressions: Impressions Chest X-Ray 07/08/25 13:47 IMPRESSION: Subsegmental atelectasis versus scarring in the left midlung zone. Electronically signed by: Yo Dubose MD 07/08/2025 02:08 PM EDT Assessment and Plan (1) Pericarditis: Qualifiers: Chronicity: acute Pericarditis type: other type Qualified Code(s): I30.8 - Other forms of acute pericarditis Status: Acute (2) S/P ablation of atrial flutter: Status: Acute Plan 70-year-old male with past medical history a flutter on Xarelto diagnosed March 2025 status post ablation 07/07/2025 at [facility], right inguinal hernia repair age 9, current left inguinal hernia with upcoming repair, hyperlipidemia, bicuspid aortic valve, bradycardia(patient is an avid athlete - runner and biker) reports having a successful ablation at [facility] yesterday. Patient was discharged home. Per Dr. Hendrickson, after speaking with [facility] Flight Controls Engineer, Dr. Grissom, patient permitted to be admitted here at [facility] for pericarditis secondary to ablation. Pericarditis s/p Ablation for Aflutter 07/07/25 at [facility] Cardiology consulted No obvious evidence of tamponade, no diffuse ST elevations on EKG Echo pending Holding anticoagulation to include Xarelto, INR currently 1.6 Continue telemetry Patient currently in normal sinus rhythm Toradol q.6 PRN, Dilaudid p.r.n. for severe pain Leukocytosis with Atelectasis via chest x-ray Patient reports a productive cough with yellow sputum, we will screen for COVID RSV and flu Chest x-ray negative for acute findings involving consolidation, opacity, pulmonary edema or pleural effusion No cardiomegaly on chest x-ray Holding off on antibiotic as the white count could be reflective of inflammation We will check sed rate and CRP Hyperlipidemia Patient can continue statin once med rec completed Cardiac diet ordered Left inguinal hernia Patient has plans for surgery originally July 14, but due to cardiac issues is being moved to the beginning of next year Patient has no acute findings or concerns DVT prophylaxis: Held secondary to pericarditis, echo is pending Med rec pending Full code status This typewriters functional tester spent 10 minutes educating patient on need for admission and clinical findings. Patient requires admission for cardiac monitoring, echocardiogram and expert consultation with Cardiology. Quality Stroke Does the patient have a stroke diagnosis?: No Reason for No Anti-thrombotic by Day Two: Contraindicated VTE Prior VTE?: No VTE Risk Level:: Medical - moderate - high VTE Device Contraindication: N/A - Device Ordered VTE Drug Contraindication: Treatment Not Indicated
--- NOTE | 2025-07-08 20:29 | PHA.MEDREC ---
Pharmacy Consult ? Medication Reconciliation Pharmacy has completed the medication reconciliation. Spoke to patient to confirm medication list. Patient confirmed he only takes 2 medications at home, atorvastatin 40 mg (last taken today07/18/25) and xarelto 20 mg (last taken yesterday 07/07/25).
[2025-07-08 21:52] LABS: Resp Syncy Virus RNA Qual PCR NEGATIVE (Negative); SARS COV2 PCR INHOUSE NEGATIVE (Negative)
[2025-07-08 22:34] VITALS: BP 107/73; PULSE 68; RESP 15; TEMP 37.2; O2SAT 95
[2025-07-09] VITALS (11 sets, daily range): BP systolic 97–136; BP diastolic 64–89; PULSE 64–84; RESP 12–24; TEMP 36.8–37.6; O2SAT 90–94; BMI 24.3
--- NOTE | 2025-07-09 02:24 | PC.NURSE ---
pt medicated per MAR for chest pain
[2025-07-09 05:26] LABS: MANUAL DIFF FLAG NO
[2025-07-09 05:31] LABS: Hematocrit 37.9 % (42.0-52.0); Hemoglobin 13.3 g/dl (14.0-18.0); Imm Gran Abs Auto 0.03 X10*3/uL (0.00-0.03); Imm Gran Pct Auto 0.4 % (0.0-0.4); Lymphocytes Absolute Auto 1.0 X10*3/uL (1.2-4.9); Mean Corpuscular HGB Conc 35.1 g/dl (31.0-36.0); Mean Corpuscular Hemoglobin 31.9 pg (27.0-33.0); Mean Corpuscular Volume 90.9 fL (80.0-98.0); NRBC Abs Auto 0.000 X10*3/uL (0.0-0.012); NRBC Pct Auto 0.0 /100WBC (0.0-0.2); Platelet Count 184 X10*3/uL (160-400); Red Blood Count 4.17 X10*6/uL (4.60-5.80); White Blood Count 8.1 X10*3/uL (4.8-10.8)
[2025-07-09 05:48] LABS: Alanine Aminotransferase 18 U/L (0-40); Albumin Level 3.8 g/dL (3.5-5.0); Alkaline Phosphatase 53 U/L (39-117); Anion Gap 13 (12-20); Aspartate Amino Transferase 23 U/L (5-37); Blood Urea Nitrogen 22 mg/dL (9-16); Calcium 8.4 mg/dL (8.4-10.2); Carbon Dioxide 23 mmol/L (22-29); Chloride 108 mmol/L (96-108); Creatinine Clr Calc Pharmacy 68.1; Estimated Glomerular Filt Rate > 60; Potassium 3.7 mmol/L (3.3-5.1); Sodium 140 mmol/L (135-145); Total Protein 6.1 g/dL (6.5-8.0)
--- NOTE | 2025-07-09 07:00 | CA_ITS ---
Transthoracic Echocardiogram Patient (Last, First, Middle): Eliot Tobin E Gender: Male Date of : 1955 Age: 70 Procedure Date: 07/09/2025 Procedure Type: Transthoracic Echocardiogram Location: ER Height: 170.18 cm Weight: 73.48 kg BSA: 1.85 m2 Heart Rate: 77 bpm BP: 99 / 61 mmHg Tank Cleaner: HECTOR/FERCHO Referring MD: Keiko SUGGSPBruna Symptoms: possible pericarditis after ablation at [facility] yesterday, elevated trop Study Quality: Adequate ECG Rhythm: Sinus Conclusions: - Normal left ventricular size and systolic function. There is moderately increased left ventricular wall thickness. The visually estimated ejection fraction is between 55-60%. - E/E prime ratio is between 8 and 15 consistent with indeterminate filling pressures. - Mildly increased right ventricular cavity size. There is mildly decreased right ventricular systolic function. - The left atrium is moderately dilated. The right atrium is moderately dilated. - There is mild aortic valve stenosis. - There is mild dilatation of the ascending aorta measuring 3.70 cm. Findings Left Ventricle Normal left ventricular size and systolic function. There is moderately increased left ventricular wall thickness. The visually estimated ejection fraction is between 55-60%. There is no evidence of regional wall motion abnormalities. Abnormal diastolic function is noted. Spectral Doppler is indicative of a pseudonormal filling pattern. E/E prime ratio is between 8 and 15 consistent with indeterminate filling pressures. Right Ventricle Mildly increased right ventricular cavity size. There is mildly decreased right ventricular systolic function. Atria The left atrium is moderately dilated. The right atrium is moderately dilated. Aortic Valve There is a normal trileaflet aortic valve. There is moderate calcification of the aortic valve. There is mild aortic valve stenosis. There is no aortic valve regurgitation. Pulmonic Valve The pulmonic valve is normal. There is no pulmonic valve regurgitation. Tricuspid Valve Normal tricuspid valve structure. There is mild tricuspid valve regurgitation. Great Vessels There is mild dilatation of the ascending aorta measuring 3.70 cm. The visualized portions of the pulmonary artery and branches are normal. Venous The inferior vena cava is normal in size and collapses greater than 50% with inspiration. Pericardium/Pleural There is no evidence of pericardial effusion. Prior Study Comparison Changes noted compared to prior study dated: 11/05/2024. Moderate RA and LA dilation. Mild dilation of RV and mild dysfunction. Measurements 2D Linear Measurements IVSd: 1.41 0.6-0.9/0.6-1.0 cm LVIDd: 3.97 3.9-5.3/4.2-5.9 cm LVIDd Index: 2.15 2.4-3.2/2.2-3.1 cm/m2 LVIDs: 3.00 2.0-3.6 cm LVPWd: 1.21 0.7-1.1 cm LA Diam: 4.50 2.7-3.8/3.0-4.0 cm LAIDs Index: 2.43 1.5-2.3 cm/m2 LV Mass: 232.57 67-162/88-224 g LV Mass Index: 125.71 43-95/49-115 g/m2 LVOT Diam: 2.40 3.0+(-)1.3 cm 2D Systolic Function EF 4C: 54.60 >55% EF 2C: 54.40 >55% EF BiP: 55.50 >55% Mitral Valve MV Pk E: 0.84 MV PK A: 0.23 MV Decel Time: 153.00 E/A: 3.60 E'Lateral: 10.30 E'Medial: 4.79 E/E' Med: 17.50 E/E' Lat: 8.10 PHT: 45.00 MVA PHT: 4.89 Decel Izard: 5.48 Aortic Valve AoV Pk Hermes: 2.01 AoV Mn Hermes: 1.47 AoV VTI: 0.36 AoV Pk Grad: 16.00 Aov Mn Grad: 10.00 ALPHONSO Cont.VTI: 2.48 AI Pk Hermes: 4.12 AI Izard: 2.36 LVOT LVOT Pk Hermes: 1.00 LVOT Mn Hermes: 0.74 LVOT VTI: 0.20 LVOT Pk Grad: 4.00 LVOT Mn Grad: 2.00 LVOT Diam: 2.40 LVOT Area: 4.52 Diastolic Function MV Pk E: 0.84 MV Pk A: 0.23 E/A: 3.60 E'Medial: 4.79 E/E' Med: 17.50 E' Laterial: 10.30 E/E' Lat: 8.10 Right Ventricle TAPSE (mm): 18.10 TVS' Hermes: 9.90 Tricuspid Valve TR Pk Hermes: 2.67 TR Pk Grad: 29.00 RA Press: 8.00 RVSP: 27.00 Great Vessels Aorta Sinus of Valsalva: 3.20 2.0-3.5 cm Ao Asc: 3.70 2.1-3.4 cm Ao Arch: 3.20 Pulmonary Valve PV Pk Hermes: 0.71 Peak PV Grad: 2.00 Updated in Other Vendor System with Status of Final Emeka Bowen MD electronically signed on 07/09/2025 3:58:21 PM with status of Final
--- NOTE | 2025-07-09 11:39 | MHC.CM.PN ---
IMM GIVEN 07/09. PT LIVES AT HOME WITH HIS /HCP, COPY REQUESTED. DCP: RETURN HOME SELF-CARE, TO TRANSPORT HIM HOME AT DISCHARGE. PCP: DR. ALLEN ASHLEY
--- NOTE | 2025-07-09 15:36 | HO.NURTONUR ---
PER ; 70-year-old male with past medical history a flutter on Xarelto diagnosed March 2025 status post ablation 07/07/2025 at [facility], right inguinal hernia repair age 9, current left inguinal hernia with upcoming repair, hyperlipidemia, bicuspid aortic valve, bradycardia(patient is an avid athlete - runner and biker) reports having a successful ablation at [facility] yesterday. Patient was discharged home. Patient stated the procedure took approximately 1 hour and patient was under anesthesia for the procedure. Approximately 11:00 this morning patient was started having increased chest pain that radiated to both shoulders with pain associated with deep breathing. Patient also reporting a productive cough with yellow sputum. Patient denies any recent travel or exposure to anyone with upper respiratory illness. Patient became so concerned that he had his drive him to the closest ED which was [facility]. Workup in the ED included chest x-ray which noted no cardiomegaly but atelectasis with possible lung scarring. ED provider contacted Cardiology, Dr. Hendrickson at [facility] and that knot picker cloth reach out to the knot picker cloth at [facility], Dr. Mario Grissom and plan was made for patient to be admitted here at [facility] for pericarditis secondary to ablation. Patient has had an increase in his troponins, 234 then 286. EKG negative for diffuse ST elevations. Patient currently in sinus rhythm. Hemodynamics otherwise stable. No obvious signs of tamponade. There is no friction rub on auscultation of the heart. Echo is pending and has been ordered stat but may not be done until the a.m.. Patient did receive 1 dose of Toradol IV at 16:30 and patient states pain has completely resolved although it still hurts to take a deep breath. Plan is to admit the patient for pericarditis secondary to ablation to telemetry bed. PER RN: Alert and oriented, independent IV: 20G in right AC Meds: NS 100 mL/hr Pain: PRN dilaudid and toradol, last gave a dose approx 10 mins ago of dilaudid for chest pain Monitor: NSR cardiac diet Had echo this morning Pain: chest pain, PRNs help VSS Meds whole with no issues
--- NOTE | 2025-07-09 16:02 | P.CONCA_ITS ---
History of Present Illness History of Present Illness Date of Service: 07/09/25 Requesting physician: Mack Geronimo Chief complaint: Chest pain, elevated troponin Narrative: [age] year gentleman presenting for pleuritic chest pain after atrial flutter ablation. He apparently had atrial flutter ablation and yesterday presented to us with pleuritic chest pain. The pain was worse with laying down and better with sitting up. Clinical story was concerning for pericarditis. He called Dr. Mario Jimenez who did the ablation for him and came to the emergency department. In the ER his EKGs showed nonspecific T-wave changes in the precordial leads and given the fact that he just had ablation a diagnosis of pericarditis was made and he was given colchicine and NSAIDs. This has improved his symptoms. He is denying any other complaints currently. He had mildly elevated troponin levels. He has missed his dose of Xarelto last night. No other concerns currently. [facility] Past Medical History Medical History Bradycardia Atrial flutter Hyperlipidemia Bicuspid aortic valve Atherosclerotic cardiovascular disease Family History Family History Father CVD (cardiovascular disease) Mother Atrial fibrillation CVD (cardiovascular disease) Surgical History Surgical History H/O right inguinal hernia repair History of colonoscopy (~03/17/17) History of hernia repair Social History Social History Housing: House Alcohol intake: current Alcohol intake frequency: 0-2 drinks per day Alcohol type: beer Patient Tobacco Use Status: Never used Tobacco Smoked in Last 30 Days: No e-Cigarette/Vaping Use: Never Used Use of substances other than those prescribed or required for medical reasons: No Advance Directives: Yes Advance Directives Information Provided: No Advance Directives on File: No Do you have a plan to hurt others: No Plan Nutrition Risks: No Nutritional Risk service: No Current occupational status: retired Cognitive needs: No Hearing needs: No Vision needs: No Travel History Ebola Risk: Travel/Contact With Anyone From Affected Area/s: No Has Patient Experienced Ebola Symptoms: No Meds Allergies Allergy/AdvReac Type Severity Reaction Status Date / Time shellfish derived Allergy Unknown Unknown Verified 07/08/25 13:07 Active Medications: Current Medications Acetaminophen (Acetaminophen 325 Mg Tablet) 650 mg PO Q6H PRN PRN Reason: Pain, Mild 1-3,fever,headache Albuterol/Ipratropium (Albuterol/Iprat 2.5/0.5mg 3 Ml Ampul.Neb) 3 ml INHALE Q4H PRN PRN Reason: Shortness of Breath/Wheezing Atorvastatin Calcium (Atorvastatin Calcium 40 Mg Tablet) 40 mg PO DAILY [facility] Last Admin: 07/09/25 08:55 Dose: 40 mg Calcium Carbonate (Calcium Carbonate 750 Mg Tab.Chew) 750 mg PO Q4H PRN PRN Reason: Heartburn Hydromorphone HCl (Hydromorphone Hcl 0.5 Mg/0.5 Ml Syringe) 0.5 mg IVPUSH Q4H PRN; Protocol PRN Reason: Pain, Severe (Pain Scale 7-10) Last Admin: 07/09/25 15:28 Dose: 0.5 mg Sodium Chloride (Ns) 1,000 mls @ 100 mls/hr IVCONT .Q10H [facility] Last Admin: 07/09/25 15:30 Dose: 100 mls/hr Ketorolac Tromethamine (Ketorolac Tromethamine 15 Mg/Ml Vial) 15 mg IVPUSH Q6H PRN PRN Reason: Pain, Moderate(Pain Scale 4-6) Last Admin: 07/09/25 12:35 Dose: 15 mg Magnesium Hydroxide (Milk Of Magnesia 30 Ml Oral.Susp) 30 ml PO DAILY PRN PRN Reason: Constipation Melatonin (Melatonin 3 Mg Tablet) 6 mg PO BEDTIME PRN PRN Reason: Insomnia Last Admin: 07/08/25 23:34 Dose: 6 mg Ondansetron HCl (Ondansetron Hcl 4 Mg/2 Ml Vial) 4 mg IVPUSH Q8H PRN PRN Reason: Nausea and Vomiting Polyethylene Glycol (Polyethylene Glycol 3350 17 Gm Powd.Pack) 17 gm PO DAILY PRN PRN Reason: Constipation Rivaroxaban (Rivaroxaban 20 Mg Tablet) 20 mg PO DAILY@1700 [place] Senna (Sennosides 8.6 Mg Tablet) 17.2 mg PO BEDTIME [facility] Last Admin: 07/08/25 21:00 Dose: Not Given Sodium Chloride (0.9 % Sodium Chloride Flush 3 Ml Syringe) 3 ml IVFLUSH QSHIFT [facility] Last Admin: 07/09/25 15:04 Dose: Not Given Home Medications ?Medication ?Instructions ?Recorded ?Confirmed ?Last Taken ?Type rivaroxaban 20 mg tablet (Xarelto) 20 mg PO DAILY@1700 07/08/25 07/08/25 07/07/25 History Physical Exam 2 Vital Signs: Vital Signs: Last Vital Signs Temp 98.2 F 07/09/25 12:27 Pulse 70 07/09/25 12:27 Resp 18 07/09/25 15:28 BP 110/73 07/09/25 12:27 Pulse Ox 94 07/09/25 12:27 O2 Del Method Room Air 07/09/25 12:27 BMI result Body Mass Index 25.4 GENERAL APPEARANCE: in no acute distress, pleasant. NECK: no carotid bruit, no jugular venous distention. SKIN: no suspicious lesions, warm and dry. HEART: no murmurs, regular rate and rhythm. LUNGS: clear to auscultation bilaterally. ABDOMEN: soft, nontender. EXTREMITIES: no edema. PERIPHERAL PULSES: equal. NEUROLOGIC: No gross deficits, AAO X 3 Objective Labs and Meds 07/09/25 04:41 07/09/25 04:41 Lab results: Laboratory Results - last 24 hr 07/08/25 07/08/25 07/08/25 14:18 17:19 21:02 WBC RBC Hgb Hct MCV MCH MCHC RDW Plt Count MPV Immature Gran % (Auto) Neut % (Auto) Lymph % (Auto) [place] % (Auto) Eos % (Auto) Baso % (Auto) Lymph # (Auto) [place] # (Auto) Eos # (Auto) Baso # (Auto) Abs Immat Gran (auto) Absolute Neuts (auto) Absolute Nucleated RBC Nucleated RBC % (auto) ESR 4 Sodium Potassium Chloride Carbon Dioxide Anion Gap BUN Creatinine Estim Creat Clear Calc Estimated GFR Random Glucose Calcium Total Bilirubin AST ALT Alkaline Phosphatase Troponin I High Sens 234.9 H* 286.0 H* C-Reactive Protein 0.18 Total Protein Albumin Influenza Type A (PCR) NEGATIVE Influenza Type B (PCR) NEGATIVE RSV RNA Qual (PCR) NEGATIVE SARS-CoV-2 RNA (RT-PCR) NEGATIVE 07/09/25 04:41 WBC 8.1 RBC 4.17 L Hgb 13.3 L Hct 37.9 L MCV 90.9 MCH 31.9 MCHC 35.1 RDW 12.8 Plt Count 184 D MPV 9.7 Immature Gran % (Auto) 0.4 Neut % (Auto) 75.5 H Lymph % (Auto) 12.4 L [place] % (Auto) 11.0 Eos % (Auto) 0.6 Baso % (Auto) 0.1 Lymph # (Auto) 1.0 L [place] # (Auto) 0.9 Eos # (Auto) 0.1 Baso # (Auto) 0.0 Abs Immat Gran (auto) 0.03 Absolute Neuts (auto) 6.1 Absolute Nucleated RBC 0.000 Nucleated RBC % (auto) 0.0 ESR Sodium 140 Potassium 3.7 Chloride 108 Carbon Dioxide 23 Anion Gap 13 BUN 22 H Creatinine 0.97 Estim Creat Clear Calc 68.1 Estimated GFR > 60 Random Glucose 117 H Calcium 8.4 D Total Bilirubin 0.9 AST 23 ALT 18 Alkaline Phosphatase 53 Troponin I High Sens C-Reactive Protein Total Protein 6.1 L Albumin 3.8 Influenza Type A (PCR) Influenza Type B (PCR) RSV RNA Qual (PCR) SARS-CoV-2 RNA (RT-PCR) Assessment and Plan (1) S/P ablation of atrial flutter: Status: Acute (2) Elevated troponin: Status: Acute (3) Pleuritic chest pain: Status: Acute Plan 70 year gentleman who underwent atrial flutter ablation and presented to us for pleuritic chest pain. He had mildly elevated troponin levels. It was felt that he has pericarditis and was treated with NSAIDs and colchicine with improvement in his symptoms. He is currently symptom free. He is supposed to be on rivaroxaban 20 mg daily which should be resumed. His echocardiography interestingly did not show a pericardial effusion but did show mild right ventricular dilatation as well as dysfunction. Given pleuritic chest discomfort, I think we need to rule out pulmonary embolism and him and we will arrange a CT PA. If that confirms PE then he should be treated with anticoagulation. If on the other hand no PEs noticed then continue same dose of Xarelto and discharge him home with colchicine and as needed ibuprofen. Colchicine will be for 3 months in case we end up treating him as pericarditis. Thank you for allowing me to participate in the care of your patient. Please feel free to contact me if you have any questions. Procedures Date of Service Date of Service: 07/09/25
[2025-07-09] MEDS: iohexoL 350 MG/ML 100 ML INFUS..BTL IV (18:37)
--- NOTE | 2025-07-09 20:28 | P.PNIM_ITS ---
Subjective Subjective Date of Service: 07/10/25 Interval History: Feeling better, minimal chest pain, and sob Physical Exam 2 Exam: Exam: General: AO X 3, no acute distress Resp: CTA bilateral CVS: S1,S2,RRR GI: +BS, NT, no distention Skin: No rash Neuro: motor grossly intact Psych: appropriate affect Vital Signs: Vital Signs: Last Vital Signs Temp 99.0 F 07/09/25 19:59 Pulse 84 07/09/25 19:59 Resp 20 07/09/25 19:59 BP 111/71 07/09/25 19:59 Pulse Ox 92 07/09/25 19:59 O2 Del Method Room Air 07/09/25 19:59 BMI result Body Mass Index 24.3 Objective Data Active Medications Acetaminophen (Acetaminophen 325 Mg Tablet) 650 mg PO Q6H PRN PRN Reason: Pain, Mild 1-3,fever,headache Albuterol/Ipratropium (Albuterol/Iprat 2.5/0.5mg 3 Ml Ampul.Neb) 3 ml INHALE Q4H PRN PRN Reason: Shortness of Breath/Wheezing Atorvastatin Calcium (Atorvastatin Calcium 40 Mg Tablet) 40 mg PO DAILY [facility] Last Admin: 07/09/25 08:55 Dose: 40 mg Documented By: FEDERICO Calcium Carbonate (Calcium Carbonate 750 Mg Tab.Chew) 750 mg PO Q4H PRN PRN Reason: Heartburn Hydromorphone HCl (Hydromorphone Hcl 0.5 Mg/0.5 Ml Syringe) 0.5 mg IVPUSH Q4H PRN; Protocol PRN Reason: Pain, Severe (Pain Scale 7-10) Last Admin: 07/09/25 15:28 Dose: 0.5 mg Documented By: FEDERICO Sodium Chloride (Ns) 1,000 mls @ 100 mls/hr IVCONT .Q10H [facility] Last Admin: 07/09/25 15:30 Dose: 100 mls/hr Documented By: FEDERICO Influenza Virus Vaccine (Flu Vacc [id number](6mo Up)/Pf 0.5 Ml Syringe) 0.5 ml IM .ONCE ONE Stop: 07/10/25 09:01 Ketorolac Tromethamine (Ketorolac Tromethamine 15 Mg/Ml Vial) 15 mg IVPUSH Q6H PRN PRN Reason: Pain, Moderate(Pain Scale 4-6) Last Admin: 07/09/25 12:35 Dose: 15 mg Documented By: FEDERICO Magnesium Hydroxide (Milk Of Magnesia 30 Ml Oral.Susp) 30 ml PO DAILY PRN PRN Reason: Constipation Melatonin (Melatonin 3 Mg Tablet) 6 mg PO BEDTIME PRN PRN Reason: Insomnia Last Admin: 07/08/25 23:34 Dose: 6 mg Documented By: SANTINO Ondansetron HCl (Ondansetron Hcl 4 Mg/2 Ml Vial) 4 mg IVPUSH Q8H PRN PRN Reason: Nausea and Vomiting Last Admin: 07/09/25 16:31 Dose: 4 mg Documented By: FEDERICO Polyethylene Glycol (Polyethylene Glycol 3350 17 Gm Powd.Pack) 17 gm PO DAILY PRN PRN Reason: Constipation Rivaroxaban (Rivaroxaban 20 Mg Tablet) 20 mg PO DAILY@1700 [facility] Last Admin: 07/09/25 16:30 Dose: 20 mg Documented By: FEDERICO Senna (Sennosides 8.6 Mg Tablet) 17.2 mg PO BEDTIME [facility] Last Admin: 07/08/25 21:00 Dose: Not Given Documented By: SANTINO Non-Admin Reason: Patient Refused Sodium Chloride (0.9 % Sodium Chloride Flush 3 Ml Syringe) [facility] Last Admin: 07/09/25 15:04 Dose: Not Given Documented By: FEDERICO Non-Admin Reason: IV Running Labs 07/09/25 04:41 07/09/25 04:41 Labs: Laboratory Results - last 24 hr 07/08/25 07/08/25 07/09/25 14:18 21:02 04:41 MCV 90.9 MCH 31.9 MCHC 35.1 RDW 12.8 Plt Count 184 D MPV 9.7 Immature Gran % (Auto) 0.4 Neut % (Auto) 75.5 H Lymph % (Auto) 12.4 L [place] % (Auto) 11.0 Eos % (Auto) 0.6 Baso % (Auto) 0.1 Lymph # (Auto) 1.0 L [place] # (Auto) 0.9 Eos # (Auto) 0.1 Baso # (Auto) 0.0 Abs Immat Gran (auto) 0.03 Absolute Neuts (auto) 6.1 Absolute Nucleated RBC 0.000 Nucleated RBC % (auto) 0.0 ESR 4 Anion Gap 13 Estim Creat Clear Calc 68.1 Estimated GFR > 60 Random Glucose 117 H Calcium 8.4 D Total Bilirubin 0.9 AST 23 ALT 18 Alkaline Phosphatase 53 C-Reactive Protein 0.18 Total Protein 6.1 L Albumin 3.8 Influenza Type A (PCR) NEGATIVE Influenza Type B (PCR) NEGATIVE RSV RNA Qual (PCR) NEGATIVE SARS-CoV-2 RNA (RT-PCR) NEGATIVE Assessment and Plan (1) Pericarditis: Status: Acute Plan 70-year-old male with past medical history a flutter on Xarelto diagnosed March 2025 status post ablation 07/07/2025 at [facility], right inguinal hernia repair age 9, current left inguinal hernia with upcoming repair, hyperlipidemia, bicuspid aortic valve, bradycardia(patient is an avid athlete - runner and biker) reports having a successful ablation at [facility] yesterday. Patient was discharged home. Per Dr. Hendrickson, after speaking with [facility] Valve Fitter, Dr. Grissom, patient permitted to be admitted here at [facility] for pericarditis secondary to ablation. Chest pain, suspect Pericarditis s/p Ablation for Aflutter 07/07/25 at [facility] echo no pericardial effusion colchicine and NSAID PRN AFIB Xarelto Hyperlipidemia Statin Left inguinal hernia outpatient f/u DVT prophylaxis: Held secondary to pericarditis, echo is pending Full code status This data analyst report writer spent 10 minutes educating patient on need for admission and clinical findings. Patient requires admission for cardiac monitoring, echocardiogram and expert consultation with Cardiology. Quality Stroke Does the patient have a stroke diagnosis?: No Reason for No Anti-thrombotic by Day Two: Contraindicated VTE Prior VTE?: No VTE Risk Level:: Medical - moderate - high VTE Device Contraindication: N/A - Device Ordered VTE Drug Contraindication: Treatment Not Indicated
[2025-07-10 03:28] VITALS: BP 100/60; PULSE 61; RESP 18; TEMP 36.9; O2SAT 93
[2025-07-10 07:16] VITALS: PULSE 67; RESP 18; TEMP 36.3; O2SAT 90
[2025-07-10 07:22] VITALS: BP 114/65
--- NOTE | 2025-07-10 11:07 | PM.DS ---
DS: Providers Provider Date of Service: 07/10/25 Date of admission: 07/08/25 19:12 Date of discharge: 07/10/25 Primary care physician: Elmo Sol MD DS: Diagnosis Discharge Diagnosis (1) Pericarditis: Status: Acute DS: Summary Hospital Course Hospital Course: admission hpi Chief Complaint: chest pain 70-year-old male with past medical history a flutter on Xarelto diagnosed March 2025 status post ablation 07/07/2025 at [facility], right inguinal hernia repair age 9, current left inguinal hernia with upcoming repair, hyperlipidemia, bicuspid aortic valve, bradycardia(patient is an avid athlete - runner and biker) reports having a successful ablation at [facility] yesterday. Patient was discharged home. Patient stated the procedure took approximately 1 hour and patient was under anesthesia for the procedure. Approximately 11:00 this morning patient was started having increased chest pain that radiated to both shoulders with pain associated with deep breathing. Patient also reporting a productive cough with yellow sputum. Patient denies any recent travel or exposure to anyone with upper respiratory illness. Patient became so concerned that he had his drive him to the closest ED which was [facility]. Workup in the ED included chest x-ray which noted no cardiomegaly but atelectasis with possible lung scarring. ED provider contacted Cardiology, Dr. Hendrickson at [facility] and that supervisor opening and picking reach out to the supervisor opening and picking at [facility], Dr. Mario Grissom and plan was made for patient to be admitted here at [facility] for pericarditis secondary to ablation. Patient has had an increase in his troponins, 234 then 286. EKG negative for diffuse ST elevations. Patient currently in sinus rhythm. Hemodynamics otherwise stable. No obvious signs of tamponade. There is no friction rub on auscultation of the heart. Echo is pending and has been ordered stat but may not be done until the a.m.. Patient did receive 1 dose of Toradol IV at 16:30 and patient states pain has completely resolved although it still hurts to take a deep breath. Plan is to admit the patient for pericarditis secondary to ablation to telemetry bed. Hospital course: Patient was admitted for chest pain following ablation for AFIB, ECG showed no acute ischemic changes and she improved with NSAID, Echo showed no pericardial effusion, however was suspected of pericarditis and started on colchine per cardiology advise and will be treated for 3 months. Presently pain free. Time Attestation Discharge Coordination Time (in mins): 40 Quality: Safe Use of Opioids Does Pt have an Active Cancer Diagnosis on the Problem List?: No Quality: Stroke Does the patient have a stroke diagnosis?: No Physical Exam Exam: Exam: General: AO X 3, no acute distress Resp: CTA bilateral CVS: S1,S2,RRR GI: +BS, NT, no distention Skin: No rash Neuro: motor grossly intact Psych: appropriate affect Vital Signs: Vital Signs: Last Vital Signs Temp 97.4 F 07/10/25 07:16 Pulse 67 07/10/25 07:16 Resp 18 07/10/25 07:16 BP 114/65 07/10/25 07:22 Pulse Ox 90 L 07/10/25 07:16 O2 Del Method Room Air 07/10/25 07:16 BMI result Body Mass Index 24.3 Discharge Plan Discharge Anticipated Discharge Date/Time: 07/10/25 11:07 Patient Disposition: Home, Self-Care Discharge Diagnosis: pericarditis Referrals: Elmo Sol MD [Primary Care Provider, Internal Medicine] - 1 Week Discharge Medications: New colchicine 0.6 mg tablet 0.6 mg PO BID Qty: 180 0RF Continued atorvastatin 40 mg tablet 40 mg PO DAILY Qty: 90 3RF Xarelto 20 mg tablet 20 mg PO DAILY@1700 Discharge Orders: Discharge Order (Routine); Ordered 07/10/25 Ordered By: Mack Geronimo Diet: Advance to usual diet Activity on Discharge: As tolerated Stand Alone Forms: Patient Portal Discharge page Print Language: Greek Care Plan Goals: recovery from pericarditis Health Concerns: pericarditis Plan of Treatment: take colchicine as directed and follow up with your heart doctor, call for appointment Assessment: see above
[2025-07-10 11:19] VITALS: BP 102/60; PULSE 60; RESP 20; TEMP 37.2; O2SAT 95
--- NOTE | 2025-07-10 12:58 | MHC.CM.PN ---
PT MEDICALLY CLEARED FOR DC HOME SELF CARE, PT'S FOR TRANSPORT.
== END 2025-07-10 11:50 | disposition home or self-care (01) | DRG 315 ==
LOC: HO.ED 19:11 → HO.EDOVER 19:16 → HO.IMC 07-09 15:33
PROVIDERS: Nurse Practitioner Family; Registered Nurse Emergency; Admitting Provider Internal Medicine; Emergency Provider Emergency Medicine Emergency Medical Services; PCP Internal Medicine; Visit Provider Internal Medicine
DX: I97.190 Other postprocedural cardiac functional disturbances following cardiac surgery (principal); I31.9 Disease of pericardium, unspecified; J98.11 Atelectasis; Q23.1 Congenital insufficiency of aortic valve; I25.10 Atherosclerotic heart disease of native coronary artery without angina pectoris; E78.5 Hyperlipidemia, unspecified; K40.90 Unilateral inguinal hernia, without obstruction or gangrene, not specified as recurrent; Y83.9 Surgical procedure, unspecified as the cause of abnormal reaction of the patient, or of later complication, without mention of misadventure at the time of the procedure; Z20.822 Contact with and (suspected) exposure to COVID-19; Z79.01 Long term (current) use of anticoagulants; Z79.899 Other long term (current) drug therapy
CPT/HCPCS: 36415; 71046; 71275; 80053; 83735; 84484; 85025; 85610; 85652; 86140; 87637; 93005; 93306; 99221; 99222; 99285; J1171; J1885; J2405; Q9967

== ENCOUNTER → 2025-07-08 12:57 | Outpatient (BNV) | payer MEDICARE, SELFPAY | PROVIDERS: Admitting Provider Internal Medicine; Emergency Provider Emergency Medicine Emergency Medical Services; PCP Internal Medicine; Visit Provider Internal Medicine Cardiovascular Disease | DX: R94.31 Abnormal electrocardiogram [ECG] [EKG] (principal); R07.9 Chest pain, unspecified | CPT/HCPCS: 93010 ==

== ENCOUNTER → 2025-07-08 13:07 | Outpatient (BNV) | payer MEDICARE, SELFPAY | PROVIDERS: PCP Internal Medicine; Visit Provider Radiology Diagnostic Radiology | DX: R07.9 Chest pain, unspecified (principal) | CPT/HCPCS: 71046 ==

== ENCOUNTER 2025-07-08 19:12 | Outpatient (BNV) | payer MEDICARE, SELFPAY | END 2025-07-09 18:31 | PROVIDERS: Admitting Provider Internal Medicine; Emergency Provider Emergency Medicine Emergency Medical Services; PCP Internal Medicine; Visit Provider Radiology Diagnostic Radiology | DX: I51.7 Cardiomegaly (principal); J90 Pleural effusion, not elsewhere classified; J98.11 Atelectasis; K44.9 Diaphragmatic hernia without obstruction or gangrene | CPT/HCPCS: 71275 ==

== ENCOUNTER 2025-07-08 19:12 | Outpatient (BNV) | payer MEDICARE, SELFPAY | END 2025-07-09 07:00 | PROVIDERS: Admitting Provider Internal Medicine; Emergency Provider Emergency Medicine Emergency Medical Services; PCP Internal Medicine; Visit Provider Internal Medicine Cardiovascular Disease | DX: I51.7 Cardiomegaly (principal); I35.0 Nonrheumatic aortic (valve) stenosis | CPT/HCPCS: 93306 ==

== ENCOUNTER → 2025-07-08 19:12 | Outpatient (BNV) | payer MEDICARE, SELFPAY | PROVIDERS: Admitting Provider Internal Medicine; Emergency Provider Emergency Medicine Emergency Medical Services; PCP Internal Medicine; Visit Provider Nurse Practitioner Family | DX: I30.8 Other forms of acute pericarditis (principal); Z98.890 Other specified postprocedural states; Z86.79 Personal history of other diseases of the circulatory system | CPT/HCPCS: 99223 ==

== ENCOUNTER → 2025-07-08 19:12 | Outpatient (BNV) | payer MEDICARE, SELFPAY | PROVIDERS: Admitting Provider Internal Medicine; Emergency Provider Emergency Medicine Emergency Medical Services; PCP Internal Medicine; Visit Provider Internal Medicine Cardiovascular Disease | DX: Z98.890 Other specified postprocedural states (principal); Z86.79 Personal history of other diseases of the circulatory system; R79.89 Other specified abnormal findings of blood chemistry; R07.81 Pleurodynia | CPT/HCPCS: 99223 ==

== ENCOUNTER 2025-07-22 07:58 | Outpatient (AMB) | payer MEDICARE, SELFPAY ==
--- OUTSIDE RECORDS SUMMARY | 2025-07-22 08:01 | XMS_ITS | Clinical Summary ---
Author Organization [address] [facility] Address [address] [place] [address] Phone Care Team Providers Care Customs Opener Verifier Packer Name Role Phone Nba De La Garza MD Primary Care Provider [phone] Allergies No known active allergies Medications ammonium [...] either. I reviewed his [place] [facility] [place] Bar[place], he has b/l C5-6 [...] Care Team Description 05/09/2025 Telephone General Surgery - [address] [place] [address] Bryan Solorio MD from Last 3 Months Immunizations Immunization Administration [...] Influencers of Health Screening 04/11/2025 COVID-19 Vaccine (2024- season) 2025 07/29/2021, 11/10/2020, 10/20/2020 Influenza Vaccine [...] topic Insurance [employer] Care Teams Customs Opener Verifier Packer Relationship Specialty Start Date End Date Nba De La Garza MD [address] [place] [address] Dr Denny [place] PCP - General Internal Medicine 12/10/21
--- OUTSIDE RECORDS SUMMARY | 2025-07-22 08:02 | XMS_ITS | Patient Health Record ---
Author Organization [facility] [place] Address [address] [address] Care Team Providers Care Client Services Specialist Name Role Phone Elmo Sol Primary Care Provider [phone] Isabell Bedoya [phone] Allergies Allergen (clinical drug ingredient) Drug/Non Drug [...] Problem Acquired hammer toe of right foot (2548952427894774) Other hammer toe(s) (acquired), right foot (M20.41) Active confirmed Problem Acquired hammer toe of left foot (5593178821067344) Other hammer toe(s) (acquired), left foot (M20.42) Active confirmed Problem Plantar wart (23594422) Plantar wart (B07.0) Active confirmed Problem Acquired right hallux valgus (207720809867823) Hallux valgus of right foot (M20.11) Active confirmed Problem Localized, primary osteoarthritis of the ankle and/or foot (327639787) Arthritis of joint of lesser toe, left (M19.072) Active confirmed Problem Localized, primary osteoarthritis of the ankle and/or foot (230913872) Arthritis of joint of lesser toe, right (M19.071) Active confirmed Vital Signs Blood pressure diastolic 83 mm Hg 06/27/2025 Height 5ft7in in 06/27/2025 Blood pressure systolic 120 mm Hg 06/27/2025 Weight 160 lbs 06/27/2025 BMI 25.06 kg/m2 06/27/2025 Encounters Encounter Location Date Provider Diagnosis [address] [address] 08/27/2024 Isabell Perica Onychomycosis B35.1 ; Metatarsalgia, right foot M77.41 ; Pain in right toe(s) M79.674 ; Pain in left toe(s) M79.675 ; Right foot pain M79.671 ; Plantar wart B07.0 ; Xerosis of skin L85.3 ; Other hammer toe(s) (acquired), right foot M20.41 ; Other hammer toe(s) (acquired), left foot M20.42 and Hallux valgus of right foot M20.[address] [facility] [address] 11/06/2024 Isabell Perica Onychomycosis B35.1 ; Tinea pedis of both feet B35.3 ; Pain in right toe(s) M79.674 ; Pain in left toe(s) M79.675 ; Right foot pain M79.671 ; Plantar wart B07.0 and Xerosis of skin L85.[address] [address] 01/28/2025 Isabell Perica Onychomycosis B35.1 ; Pain in right toe(s) M79.674 ; Pain in left toe(s) M79.675 ; Right foot pain M79.671 and Plantar wart B07.[address] [address] 04/11/2025 Isabell Perica Onychomycosis B35.1 ; Hallux valgus of right foot M20.11 ; Pain in right toe(s) M79.674 ; Pain in left toe(s) M79.675 ; Right foot pain M79.671 ; Plantar wart B07.0 and Other hammer toe(s) (acquired), right foot M20.[address] [address] 06/27/2025 Isabell Cordovaa Onychomycosis B35.1 ; Pain in right toe(s) M79.674 ; Pain in left toe(s) M79.675 ; Right foot pain M79.671 and Plantar wart B07.0 [facility] [address] [address] 06/27/2025 Isabell Bedoya Assessments Encounter Date Diagnosis [...] Details Provider Name:Isabell pinon, 10/07/2025 09:15:00 AM, [address] [place] [address], [phone], Insurance Providers Payer Name Payer Address Payer Phone Subscriber Number Group Number Insured Name Patient Relationship to Insured Coverage Start Date Coverage End Date [facility] [address] [place] [address] [phone] [id number] Eliot Tobin Self - patient is the insured 4 Medical (General) History Medical History History ICD Code CAD (Cholesterol) covid-19 Heart disease Measles Mumps Chicken pox Surgical History Surgery Date(Month/Year) hernia surgery 1962
--- OUTSIDE RECORDS SUMMARY | 2025-07-22 08:02 | XMS_ITS | Patient Health Record ---
Author Organization [facility] Address [address] [place] [address] Care Team Providers Care Beverage Host Name Role Phone Holli (RETIRED) Nba WILKES Primary Care Provide r Yo Camargo [phone] Allergies Allergen (clinical drug ingredient) Drug/Non Drug [...] Status Risk Notes Problem Colon cancer screening (037187121) Colon cancer screening (Z12.11) Active confirmed Problem Pre-procedure evaluation check (511546818) Encounter for other preprocedural examination (Z01.818) Active confirmed Problem Long-term current use of antiplatelet drug (177329923176840 ) intermediate (current) use of aspirin (Z79.82) Active confirmed Plan Of Treatment Future Test Test Name Order Date COLONOSCOPY 01/13/2017 Insurance Providers Payer Name Payer Address Payer Phone Subscriber Number Group Number Insured Name Patient Relationship to Insured Coverage Start Date Coverage End Date [facility] [address] [address] [place], [place] [id number] KITA HERNANDEZ Self - patient is the insured Medical (General) History Medical History History ICD Code Denies [place],DM,CVA,Lung disease,renal dise ase Surgical History Surgery Date(Month/Year) hernia - age 9 1962
--- NOTE | 2025-07-22 08:05 | A.OFFPC_ITS ---
Vital Signs 07/22/25 08:10 Weight 160 lb 0.8 oz BP 154/60 H Blood Pressure Location Rt brachial Pulse 59 Pulse Source Pulse Oximeter Temp 97.0 F Pulse Oximetry (%) 98 Intake Visit Reasons: TCM Intake Note: No issues feels like he is getting better. Allergies shellfish derived Allergy (Unknown, Verified 07/22/25 08:08) Unknown Tobacco use date assessed: 02/26/25 Dental Screening Dental Screen Date: 02/26/25 [facility] Comments History of Present Illness Details Patient presents to the office for a TCM visit. ? Date of admission:07/08/2025 Date of discharge:07/10/2025 This is a Follow-up from admission at [facility]: History of Present Illness - The patient is a 70-year-old male pres enting with follow-up for pericarditis and atrial flutter. - The patient underwent cardiac ablation on July 07 and was subsequently hospitalized for pericarditis, treated with colchicine for 90 days. - He reported initial symptoms of chest pain and shortness of breath, which led to the emergency room visit. - The patient has been on Xarelto since April and continues to take it along with a statin and colchicine. - An echocardiogram and CT scan showed n o pericardial effusion but indicated right ventricular filling issues and slight heart enlargement. - The patient has a history of running a nd biking but has not resumed these activities post-procedure due to caution. - A vocal cord nodule was identified by an anesthesiologist during the procedure, and the patient plans to consult an ENT specialist. - The patient experienced diarrhea initi ally with colchicine, which has now resolved to soft stools. Social History - The patient is retired and has a histo ry of being active with running and biking, but has not resumed these activities post-procedure. Review of Systems - Cardiovascular: Reports chest pain and dyspnea post-ablation. Denies current chest pain. - Respiratory: Reports dyspnea post-abla tion. Denies current respiratory symptoms. - Gastrointestinal: Reports initial diar [place] with colchicine, now resolved to soft stools. Physical Exam General: Cooperative and healthy appearing Nutritional Appearance: Well nourished Orientation/consciousness: Patient oriented x3 Limitations: No limitations Head: Normal to inspection General: Appearance normal, both eyes and all related structures Neck: Normal visual inspection Chest: Normal palpation of entire chest wall Respiratory: Patient reports feeling shortness of breath, likely due to scarring post-ablation. Small amount of fluid in the lung noted on CT scan. ormal respiratory effort Neurology: Patient oriented x3. Blood pressure elevated at 154, which is high for the patient. Pulse has returned to normal. Results - Echocardiogram: No pericardial effusio n, right ventricular filling issues noted. - CT Scan: Slight heart enlargement, min imal lung fluid. Plan - Continue colchicine for 90 days as per registered nurse obstetrics's advice to manage pericarditis. - Maintain current medications including Xarelto and statin, with a follow-up on potential interactions. - Add a beta indra to manage elevated blood pressure until registered nurse obstetrics review. - Referral to ENT for evaluation of voca l cord nodule. Discussion Notes I discussed with the patient the importance of continuing colchicine for the full 90 days to manage pericarditis and the addition of a beta indra to control elevated blood pressure until the registered nurse obstetrics's review. We also talked about the need for an ENT consultation for the vocal cord nodule identified during the procedure. The patient was advised to maintain current medications and to follow up with the registered nurse obstetrics as scheduled. Patient Instructions - Continue taking colchicine as prescrib ed for 90 days. - Take all current medications including Xarelto and statin as directed. - Follow up with the registered nurse obstetrics on the scheduled dates. - Schedule an appointment with an ENT sp ecialist for the vocal cord nodule evaluation. Hospital Course/Discharge Summary: As above Discharged to/Current Location: Lives with: home Diagnosis: Ac Pericarditis and Atrial Flutter Procedures performed: New medications: Metoprolol and Colchicine Discontinued medications: None Change medications/dosing: Pending labs: None Pending diagnostic test: None Any Follow-up Labs required? None Any Follow-up Diagnostic test required? Cardiology appt How are you feeling? Are you in any pain or discomfort? None Do you have any questions about your condition or discharge instructions? Were you able to get your medications filled? Yes Do you have any questions about your medications? No Any referrals required? Cardiology Were you able to schedule your follow-up appointment? If home health was ordered, have they contact you?NA Any outpatient services, if so, are you scheduled?[place] Are there any additional resources like transportation you might need during her recovery? ? - VNA? - RUBBISH COLLECTOR? - Meals on wheels? Educational need/resources: What support system do you have? ReplyForward [facility] Medical History (Updated 07/22/25 @ 08:33 by Elmo Sol MD) Vocal cord nodule Bradycardia Atrial flutter Hyperlipidemia Bicuspid aortic valve Atherosclerotic cardiovascular disease Surgical History (Updated 07/18/25 @ 00:01 by Kelly Xie) S/P ablation of atrial flutter H/O right inguinal hernia repair History of colonoscopy (~03/17/17) History of hernia repair Family History Father CVD (cardiovascular disease) Mother Atrial fibrillation CVD (cardiovascular disease) Social History Household Members: Spouse Housing: House Do you presently have visiting nurse or other home services: No Alcohol intake: current Alcohol intake frequency: 0-2 drinks per day Alcohol type: beer Patient Tobacco Use Status: Never used Tobacco e-Cigarette/Vaping Use: Never Used service: No Current occupational status: retired Cognitive needs: No Hearing needs: No Vision needs: No Questionnaire PHQ-9 Over the last 2 weeks, how often have you been bothered by any of the following problems? 1. Little interest or pleasure in doing things: not at all 2. Feeling down, depressed, or hopeless: not at all 3. Trouble falling or staying asleep, or sleeping too much: not at all 4. Feeling tired or having little energy: not at all 5. Poor appetite or overeating: not at all 6. Feeling bad about yourself - or that you are a failure or have let yourself or your family down: not at all 7. Trouble concentrating on things, such as reading the newspaper or watching television: not at all 8. Moving or speaking so slowly that other people could have noticed. Or the opposite - being so fidgety or restless that you have been moving around a lot more than usual: not at all 9. Thoughts that you would be better off or of hurting yourself in some way: not at all Total score: 0 Depression Screening Interpretation: Negative Depression Screening Done: Yes Source: Developed by Drs. Yo Rod, Nolvia Gil, Marvel Guerrier and colleagues, with an educational kumra from Editorially. Thrive Questionnaire Date Thrive assessed: 07/09/25 AUDIT C Alcohol Use Questionnaire (AUDIT-C) 1. How often do you have a drink containing alcohol?: Monthly or less 2. How many drinks containing alcohol do you have on a typical day when you are drinking?: 1 or 2 3. How often do you have six or more drinks on one occasion?: Less than monthly Total Score: 2 TORRES-7 AMB Questionnaire TORRES-7 Date TORRES - 7 assessed: 02/26/25 Feeling nervous, anxious, or on edge: 0 = Not at all Not being able to stop or control worryin = Not at all Worrying too much about different things: 0 = Not at all Trouble relaxin = Not at all Being so restless that it is hard to sit still: 0 = Not at all Becoming easily annoyed or irritable: 0 = Not at all Feeling afraid as if something awful might happen: 0 = Not at all Total TORRES-7 score (0-4 normal; 5-9 mild; 10-14 moderate; 15-21 severe): 0 Source: Developed by Drs. Yo Rod, Nolvia Gil, Marvel Guerrier and colleagues, with an educational kumar from Editorially. Physical exam (Primary Care) Vital Signs: Last Vital Signs Temp 97.0 F 07/22/25 08:10 Pulse 59 07/22/25 08:10 BP 154/60 H 07/22/25 08:10 Pulse Ox 98 07/22/25 08:10 Tobacco/Smoking Status: Tobacco use Status Tobacco use date assessed 02/26/25 07/22/25 08:13 Patient Tobacco Use Status Never used Tobacco 07/22/25 08:13 e-Cigarette/Vaping Use Never Used 07/22/25 08:13 PHQ-9: PHQ-9 Score PHQ-9: Total score 0 07/22/25 08:13 Depression Screening Interpretation: Negative Thrive Assessment: Date of Thrive Assessment Date Thrive assessed 07/09/25 07/22/25 08:13 Coding Level of Care Code TCM Mod MDM <= 14 Days Diagnoses Vocal cord nodule J38.2 Assessment & Plan Assessment & Plan (1) Vocal cord nodule: Code(s): J38.2 - Nodules of vocal cords Category: Medical Plan: ENT referral made. While Anesthesia intuabting for procedure, noticed vocal nodule. Orders: Referrals Ear/Nose/Throat Referral J38.2 - Nodules of vocal cords Medications: New metoprolol succinate ER 50 mg PO DAILY 90 tabs 1RF
[2025-07-22 08:10] VITALS: BP 154/60; PULSE 59; TEMP 36.1; O2SAT 98
== END 2025-07-22 08:37 | disposition home or self-care (01) ==
LOC: HO.HMCSH 07:58
PROVIDERS: PCP Internal Medicine; Visit Provider Internal Medicine
DX: J38.2 Nodules of vocal cords (principal)

== ENCOUNTER → 2025-07-22 07:58 | Outpatient (BNVA) | payer MEDICARE, SELFPAY | PROVIDERS: PCP Internal Medicine; Visit Provider Internal Medicine | DX: J38.2 Nodules of vocal cords (principal); Z28.89 Immunization not carried out for other reason; Z79.899 Other long term (current) drug therapy | CPT/HCPCS: 96127; 99495 ==

== ENCOUNTER 2025-08-04 10:03 | Outpatient (AMB) | payer MEDICARE, SELFPAY ==
[2025-08-04 10:15] VITALS: BP 130/70; PULSE 51; BMI 24.5
--- NOTE | 2025-08-04 10:15 | A.OFFVIS_ITS ---
Vital Signs 08/04/25 10:15 Height 5 ft 7 in Weight 156 lb 8.451 oz BMI 24.5 BP 130/70 Blood Pressure Location Lt brachial Position Sitting Pulse 51 Pulse Source Monitor Intake Visit Reasons: 3 mth s/p holter/ ep gobiel Allergies shellfish derived Allergy (Unknown, Verified 07/22/25 08:08) Unknown Medication List - Last Reconciled 08/04/25 by Gordon Huffman MD atorvastatin 40 mg PO DAILY colchicine 0.6 mg PO BID metoprolol succinate ER 50 mg PO DAILY rivaroxaban (Xarelto) 20 mg PO DAILY@1700 HPI Comments Details: Eliot returns for follow-up. He has a history of coronary artery disease but in a recent visit, he was found to be in atrial flutter. After that, he saw electrophysiology and underwent flutter ablation. Then had hospitalization at [facility] for pericarditis type symptoms and it seems he was put on colchicine. He still has some random sharp pains but overall seems improved. [facility] Medical History (Updated 08/04/25 @ 11:18 by Gordon Huffman MD) Vocal cord nodule Bradycardia Atrial flutter Hyperlipidemia Bicuspid aortic valve Atherosclerotic cardiovascular disease Surgical History (Updated 07/18/25 @ 00:01 by Kelly Xie) S/P ablation of atrial flutter H/O right inguinal hernia repair History of colonoscopy (~03/17/17) History of hernia repair Family History Father CVD (cardiovascular disease) Mother Atrial fibrillation CVD (cardiovascular disease) Social History Household Members: Spouse Housing: House Do you presently have visiting nurse or other home services: No Alcohol intake: current Alcohol intake frequency: 0-2 drinks per day Alcohol type: beer Patient Tobacco Use Status: Never used Tobacco e-Cigarette/Vaping Use: Never Used service: No Current occupational status: retired Cognitive needs: No Hearing needs: No Vision needs: No Review of Systems Const Denies weakness ENT Denies dizziness Card Denies chest pain, Denies chest pain with activity, Denies syncope, Denies rapid heart rate, Denies pedal edema, Denies edema, Denies leg edema, Denies lightheadedness, Denies palpitations, Denies dyspnea, Denies dyspnea on exertion and Denies orthopnea Resp Denies cough, Denies dyspnea and Denies dyspnea on exertion GI Denies hematochezia and Denies change in stool character Musc Denies abnormal gait, Denies muscle cramps, Denies muscle weakness, Denies numbness, Denies radiating pain into limb and Denies tingling Neuro Denies abnormal gait, Denies dizziness, Denies syncope, Denies numbness, Denies tingling and Denies weakness Endo Denies palpitations Physical Exam Vital Signs: Last Vital Signs Pulse 51 08/04/25 10:15 BP 130/70 08/04/25 10:15 BMI result Body Mass Index 24.5 Const General: comfortable and no acute distress Orientation/consciousness: patient oriented x3 HEENT Other: Unremarkable Head: Yes normal to inspection Neck Neck: Yes normal visual inspection Chest Chest palpation & inspection: normal inspection of the chest Resp Auscultation: clear to auscultation bilaterally Cardio Palpation: normal PMI Heart sounds: S1 normal heart sound present, S2 normal heart sound present, no gallops, no murmurs and no rubs GI Palpation (GI): Soft to palpation Back/Spine/Pelvis Other: unremarkable Skin General skin exam: no rashes or lesions noted Neuro General: patient oriented x3 Extrem General: Yes normal to inspection Psych Mental Status: mental status grossly normal Office Procedures EKG Details: EKG with sinus bradycardia at 51/Min; cannot exclude old inferior infarct; slight [place] prolongation to 202 milliseconds; [place]. [address]-Mwrdrobylcnxxdjso, Complete Assessment & Plan Assessment & Plan (1) Atherosclerotic cardiovascular disease: Code(s): I25.10 - Atherosclerotic heart disease of [place] coronary artery without angina pectoris Category: Medical Plan: Cardiac studies reviewed. Coronary CTA from 2022- no clear obstructive disease. Mostly mild coronary disease. Mild left atrial/left ventricular dilatation and that might be from high levels of endurance activity. In the echocardiogram, preserved LVEF, 65-70%. Basal inferior hypokinesis. Myocardial perfusion imaging study 2020 with mixed ischemia/infarct pattern in the basal inferoseptal/inferolateral wall. In the exercise component, he was able to do as much as 11 minutes. Continue statins. (2) Bicuspid aortic valve: Code(s): Q23.1 - Congenital insufficiency of aortic valve Category: Medical Plan: There has been a question if it truly has a bicuspid valve versus trileaflet. Echocardiogram shows only mild aortic stenosis. (3) Atrial flutter: Code(s): I48.92 - Unspecified atrial flutter Category: Medical Plan: Status post ablation. With regard to stopping anticoagulation, await EP follow- up. (4) Bradycardia: Code(s): R00.1 - Bradycardia, unspecified Category: Medical Plan: Suspected to be due to athletic lifestyle. (5) Pericarditis: Code(s): I31.9 - Disease of pericardium, unspecified Category: Medical Qualifiers: Chronicity: acute Pericarditis type: other type Qualified Code(s): I30.8 - Other forms of acute pericarditis Plan: Chest pain seem much better. He can finish a 3-month course of colchicine. Plan Discussion Notes I discussed with the patient the current management of pericarditis and post- ablation inflammation, emphasizing the importance of continuing colchicine for three months. We reviewed the echocardiogram findings, noting the absence of effusion, and I advised the patient to monitor symptoms closely. The patient was instructed to avoid strenuous activities and to engage in light exercises, such as walking, to maintain physical activity without exacerbating symptoms. Patient was informed and verbally consented to the use of an ambient scribe for clinic note documentation during this visit. Orders: Orders ECG 3 day holter monitor 3 Months I48.92 - Unspecified atrial flutter Patient Instructions: - Continue taking colchicine as prescribed for three months. - Monitor for any changes in symptoms and report them promptly. - Avoid strenuous activities; engage in light exercises like walking. Coding Level of Care Code Est Pt Level 4 (79822) Complex EM visit Add On G2211 Diagnoses Atherosclerotic cardiovascular disease I25.10 Bicuspid aortic valve Q23.1 Atrial flutter I48.92 Bradycardia R00.1 Other acute pericarditis I30.8 Chronicity: acute Pericarditis type: other type CPT Codes EKG - CPT: 60066-Dulxmjbsxwjqearnr, Complete ([id number])
--- OUTSIDE RECORDS SUMMARY | 2025-08-04 11:40 | XMS_ITS | Clinical Summary ---
Author Organization 175 [facility] Address [address] [place] [address] Phone Care Team Providers Care Enterprise Cloud Architect Name Role Phone Nba De La Garza MD Primary Care Provider [phone] Allergies No known active allergies Medications ammonium [...] either. I reviewed his C/S MRI from [facility] with Dr. Barney, he has b/l C5-6 [...] Team Description 05/09/2025 Telephone General Surgery - [address] [place] [address] Bryan Solorio MD from Last [...] topic Insurance [employer] MED[employer]ARE [employer]VANTAGE Care Teams Enterprise Cloud Architect Relationship Specialty Start Date End Date Nba De La Garza MD [address] [place] [address] Dr Denny [place] PCP - General Internal Medicine 12/10/21
== END 2025-08-04 10:39 | disposition home or self-care (01) ==
LOC: HO.HCS 10:03
PROVIDERS: PCP Internal Medicine; Visit Provider Internal Medicine
DX: I25.10 Atherosclerotic heart disease of native coronary artery without angina pectoris (principal); Q23.1 Congenital insufficiency of aortic valve; I48.92 Unspecified atrial flutter; R00.1 Bradycardia, unspecified; I30.8 Other forms of acute pericarditis
CPT/HCPCS: 93010; 99214; G2211

== ENCOUNTER → 2025-08-04 10:03 | Outpatient (BNVA) | payer MEDICARE, SELFPAY | PROVIDERS: PCP Internal Medicine; Visit Provider Internal Medicine | DX: I25.10 Atherosclerotic heart disease of native coronary artery without angina pectoris (principal); I48.92 Unspecified atrial flutter; I30.8 Other forms of acute pericarditis; Q23.1 Congenital insufficiency of aortic valve; R00.1 Bradycardia, unspecified | CPT/HCPCS: 93005; 99212 ==

== ENCOUNTER 2025-08-15 09:50 | Outpatient (REF) | payer MEDICARE, SELFPAY ==
--- NOTE | ~2025-08-15 | XR_ITS ---
EXAMINATION: XR CHEST CLINICAL INFORMATION: R05.9 - Cough, unspecified COMPARISON: X-ray 07/08/2025 TECHNIQUE: 2 views of the chest were obtained. FINDINGS: The cardiomediastinal silhouette is within normal limits. The lungs are well expanded. There is no focal consolidation, edema, or effusion. Redemonstrated linear atelectasis/scarring in the left midlung. No pneumothorax. No acute osseous abnormality. Thoracic spine spondylosis. XR/XR chest 2V IMPRESSION: No acute cardiopulmonary disease Electronically signed by: Wally Todd MD 08/15/2025 11:16 AM EST
== END 2025-08-15 09:51 | disposition home or self-care (01) ==
LOC: HO.HMGCX 09:50
PROVIDERS: PCP Internal Medicine; Visit Provider Physician Assistant
DX: Z13.89 Encounter for screening for other disorder (principal)
CPT/HCPCS: 71046

== ENCOUNTER 2025-08-15 09:50 | Outpatient (AMB) | payer MEDICARE, SELFPAY ==
--- NOTE | 2025-08-15 10:04 | AM.OFFWIN_ITS ---
Intake Vital Signs 08/15/25 10:06 Weight 157 lb BP 130/82 Blood Pressure Location Lt brachial Position Sitting Respiration 16 Pulse 62 Temp 97.6 F Temp Source Oral Pulse Oximetry (%) 99 Oxygen Delivery Method Room Air Intake Visit Reasons: EP vertigo, headache, lightheaded, nausea Intake Note: Pt has been having vertigo for 3 days with nausea and headaches . Patient Tobacco Use Status: Never used Tobacco Binding Stitcher Required: No Accompanied by: Self / Same As Patient Allergies shellfish derived Allergy (Unknown, Verified 08/15/25 10:06) Unknown Do you need a note to return to daycare/school/sports/work: No HPI HPI Comments History of Present Illness Details 70-year-old male with a past medical his tory of a flutter status post ablation in June, recent episode of pericarditis currently on colchicine, HLD, questionable bicuspid aortic valve however most recent echo showed a tricuspid aortic valve and ACD who is complaining of an episode of nausea and dizziness 2 days ago while waiting to see his ENT doctor. He tells me he was just sitting in the waiting room when all of a sudden he was overcome with nausea and like the room is closing in on him and dizziness. It is not worse with positional changes. Slightly subsides and then gets worse, with no provocation. He denies any cough, shortness of breath, chest congestion, abd pn, fevers or feeling like he is going to pass out. He did not vomit. He states that he went to see an ENT doctor because of a nodule that was incidentally found on his vocal cords during the ablation. The ENT doctor did not address the issue in his office and the patient went home and states he feels a little bit better but he still has some feelings of nausea and dizziness. He does not have a history of inner ear issues or infections but is asking about meclizine. [facility] Medical History (Updated 08/15/25 @ 11:05 by Hermila Joseph PA-C) Vocal cord nodule Bradycardia Atrial flutter Hyperlipidemia Bicuspid aortic valve Atherosclerotic cardiovascular disease Surgical History (Updated 07/18/25 @ 00:01 by Kelly Xie) S/P ablation of atrial flutter H/O right inguinal hernia repair History of colonoscopy (~03/17/17) History of hernia repair Family History Father CVD (cardiovascular disease) Mother Atrial fibrillation CVD (cardiovascular disease) Social History Household Members: Spouse Housing: House Do you presently have visiting nurse or other home services: No Alcohol intake: current Alcohol intake frequency: 0-2 drinks per day Alcohol type: beer Patient Tobacco Use Status: Never used Tobacco e-Cigarette/Vaping Use: Never Used service: No Current occupational status: retired Cognitive needs: No Hearing needs: No Vision needs: No Review of Systems Const All systems reviewed & are unremarkable except as noted in HPI and below ENT Reports Normal hearing present Neuro Reports Normal hearing present and Denies Abnormal speech present Physical Exam Vital Signs: Last Vital Signs Temp 97.6 F 08/15/25 10:06 Pulse 62 08/15/25 10:06 Resp 16 08/15/25 10:06 BP 130/82 08/15/25 10:06 Pulse Ox 99 08/15/25 10:06 Oxygen Delivery Method Room Air 08/15/25 10:06 Const General: cooperative, healthy appearing, comfortable and no acute distress Orientation/consciousness: patient oriented x3 Limitations: no limitations HEENT Head: Yes normal to inspection Ears: hearing grossly normal bilaterally, external ears normal and TM's normal bilaterally General nose exam: Normal external nose present, Normal nares present and No nasal discharge present Face and sinus: Yes normal facial exam Mouth: Normal oral and palatal mucosa present and moist mucous membranes Throat: Yes tonsils normal, Yes uvula midline and Yes posterior oropharynx abnormal (Erythema) Eyes General: appearance normal, both eyes and all related structures Neck Neck: Yes normal visual inspection Resp Effort & Inspection: normal respiratory effort, able to speak in complete sentences, Actively coughing, no respiratory distress, not tachypneic, no tripod positioning and no use of accessory muscles Auscultation: clear to auscultation bilaterally Cardio Rate: bradycardic Rhythm: regular rhythm Heart sounds: normal S1 and S2 Skin General skin exam: no rashes or lesions noted Neuro General: patient oriented x3 Cranial nerves: Yes Nystagmus not present, Yes Midline tongue present and Yes Normal hearing present Cognition (Neuro): normal cognition Speech: No Abnormal speech present Gait exam (Neuro): Normal gait present Extrem General: Yes normal to inspection and Yes no clubbing, cyanosis or edema Assessment & Plan Assessment & Plan (1) Dizziness: Code(s): R42 - Dizziness and giddiness Plan: Vital signs are stable but when we did the EKG he did drop his heart rate to 53 beats per minute, EKG similar to the last one on 08/04/25, no acute ST or T wave changes. With his recent ablation, I wanted to confirm he was not in aflutter. Exam was only remarkable for some erythema in the posterior oropharynx so I did a flu COVID and RSV. We will also get a chest x-ray to rule out pneumonia though it would be an abnormal presentation. Patient requested meclizine for the dizziness so I did send some meclizine and some ondansetron for the nausea to his pharmacy, will treat his symptoms. Recommended if symptoms get worse that he go to the emergency department. Has PCP appt on 08/25. Discussed case with Dr Weldon, she agrees with assessment and plan. (2) Nausea alone: Code(s): R11.0 - Nausea Plan: as above Orders: Orders XR chest 2V Today R05.9 - Cough, unspecified AMB EKG-In Office Today R42 - Dizziness and giddiness SARS-CoV2/FLU/RSV Today R09.89 - Other specified symptoms and signs involving the circulatory and respiratory systems Medications: New meclizine 25 mg PO DAILY PRN 10 tabs 0RF dizziness ondansetron 4 mg PO Q8H PRN 10 tabs 0RF nausea and vomiting Coding Level of Care Code Est Pt Level 4 (16291) Diagnoses Dizziness R42 Nausea alone R11.0
[2025-08-15 10:06] VITALS: BP 130/82; PULSE 62; RESP 16; TEMP 36.4; O2SAT 99
--- OUTSIDE RECORDS SUMMARY | 2025-08-15 10:31 | XMS_ITS | Continuity of Care Document ---
Author Organization [place] - [facility], [facility] Address [address] [place] [address] Care Team Providers Care Barrel Cooper Name Role Phone DION, KARTIK Primary Care Provider Assessment Encounter Date Assessment Date Assessment LastModified by Organization Details LastModified Time 08/13/2025 08/13/2025 Assessment: - Status post cardiac ablation, July 07. - History of left ear hearing loss, nerve damage. - Intermittent vertigo with nausea. - No evidence of laryngeal nodule on examination. Plan: The patient underwent a thorough examination, including visualization of the larynx using a nasal camera, which revealed no evidence of a nodule. The voice quality was noted to be normal, and no symptoms suggestive of laryngeal pathology were identified. The patient was reassured regarding the absence of a nodule and advised to monitor for any new symptoms such as vocal changes, coughing up blood, or pain in the throat area. For intermittent vertigo and nausea, the patient was advised to discuss blood pressure medication adjustments with his primary care physician, as postural hypotension may be contributing to his symptoms. A low-salt diet was recommended to support overall health and potentially mitigate dizziness. The patient was informed of the slight risk of nosebleed associated with the nasal camera procedure due to his use of blood thinners. Follow-up was offered if new symptoms develop or if further evaluation is desired. [email or web address] Not available 08/13/2025 10:01:38 Plan of Treatment Reminders Order Date Submit Date Provider Last Modified By Organization Details Last Modified Time Details Appointments None record ed. Lab None record ed. Referral None record ed. Procedures None record ed. Surgeries None record ed. Imaging None record ed. Medication Orders None record ed. Patient TargetsNo targets recorded. Patient Instructions Encounter Date Encounter Id Patient Instructions Last Modified By Organization Details Last Modified Time 08/13/2025 [id number] - Monitor for ne w symptoms such as vocal changes, coughing up blood, or throat pain. - Discuss blood pressure medication adjustments with primary care physician. - Follow a low-salt diet. - Return for follow-up if new symptoms develop or further evaluation is desired. [email or web address] Not available 08/13/2025 10:01:39 Please note: Parts of this encounter note have been generated by AI based on audio conversation. Patient consent was required prior to utilizing this technology. Content review was required prior to finalizing the note. [email or web address] Not available 08/13/2025 10:01:39 Reason for Referral None Reported. Problems Name Problem SNOMED Code Status Onset Date Resolution Date Notes Provider Name and Address Organization Details Recorded Time Singers' nodes 39210257 Active 025 JABARI JARRELL MD [address] [place] [address], [phone], [facility] - [facility] 5 10:01:47 Dizziness 231119809 Active 025 JABARI JARRELL MD [address] [place] [address], [phone], [facility] 5 10:01:56 Problem Notes None recorded. Procedures Surgical History Date Name Laterality Status Provider Name and Address Organization Details Recorded Time 08/13/2025 FOL_DP completed JABARI JARRELL MD [address] [place] [address], [phone], [facility] 08/13/2025 10:01:39 Imaging Results None recorded. Procedure Notes None recorded. Medical Equipment None Reported. Allergies No known drug allergies Medications Name Sig Start Date Stop Date Status Note LastModified by Organization Details LastModified Time atorvastatin 40 mg tablet TAKE 1 TABLET BY MOUTH EVERY DAY active Not Available Not Available No t Available metoprolol succinate ER 50 mg tablet,exten ded release 24 hr TAKE 1 TABLET BY MOUTH DAILY active Not Available Not Available Not Available ammonium lactate 12 % topical cream PLEASE SEE ATTACHED FOR DETAILED DIRECTIONS active Not Available Not Available N ot Available colchicine 0.6 mg tablet TAKE ONE TABLET BY MOUTH ORALLY 2 TIMES A DAY active Not Available Not Available Not Available ciclopirox 0.77 % topical cream 1 APPLICATION EXTERNALLY TWICE A DAY TO SKIN OF FEET INCLUDING BETWEEN THE TOES 30 DAYS active Not Available Not Available No t Available Xarelto 20 mg tablet TAKE 1 TABLET BY MOUTH EVERY EVENING active Not Available Not Available No t Available Vitals Date Recorded Body height Body mass index (BMI) Body weight Systolic And Diastolic Provider Name and Address Organization Details Last Updated DateTime 08/13/2025 167.64 cm 25.8 kg/m2 98081.78 g 134/82 mm[Hg] CASPER BUCIO [facility] 08/13/2025 09:48:11 Social History None recorded. Functional Status None recorded. Mental Status None recorded. Family History Nothing Reported. Medical History No medical history recorded. Past Encounters Encounter ID Performer Location Encounter Start Date Encounter Closed Date Diagnosis/Indication Diagnosis SNOMED-CT Code Diagnosis ICD10 Code Diagnosis IMO Codes Diagnosis Note [id number] JABARI JARRELL MD [facility] [address] [address] 08/13/2025 09:16:34 08/13/2025 10:01:48 Singers' nodes 13088519 J38.2 988225 Dizziness [id number] R42 91654 Health Concerns Section Related Observation LastModified by Organization Detai ls LastModified Time None Recorded Concern Status LastModified by Organization Details LastModified Time None Recorded Payers Encounter Date Sequence Insurance Name Policy Number Policy Hatch Covered Member ID Hatch Member ID Guarantor Name 08/13/2025 1 [employer] (MEDICARE REPLACEMENT/ ADVANTAGE - PPO) [id number] Jack Eliot E Crista [id number] Eliot Tobin Notes Date Note Type Note Provider Name and Address Organization Details Recorded Time 08/13/2025 text/html vocal nodule incidental finding during anesthesia Eliot Tobin is a 70-year-old male who presents for evaluation of a nodule on the larynx noted during anesthesia for a cardiac ablation performed on July 07. He reports no vocal changes, coughing up blood, or prior throat surgeries. He has a history of hearing loss in the left ear since childhood, attributed to nerve damage, and experiences intermittent episodes of vertigo accompanied by nausea. Severe episodes can last all day, requiring bed rest, while milder episodes resolve after a few hours of lying down. He denies dizziness associated with rolling over in bed but notes occasional lightheadedness upon standing, which he attributes to recent initiation of blood pressure medication in June. He is retired from [employer] and remains active, previously engaging in running and biking until his cardiac ablation. He denies smoking history and reports no significant voice use such as singing or yelling. He expresses concern about the laryngeal nodule and seeks clarification regarding its nature. JABARI JARRELL MD [address] [place] [address], [place], [phone], [facility] - [facility] 08/13/2025 10:02:44
--- OUTSIDE RECORDS SUMMARY | 2025-08-15 10:31 | XMS_ITS | Clinical Summary ---
Author Organization 175 [facility] Address [address] [place] [address] Phone Care Team Providers Care Senior Hardware Engineer Name Role Phone Nba De La Garza MD Primary Care Provider [phone] Allergies No known active allergies Medications ammonium [...] either. I reviewed his C/S MRI from [facility] with Dr. Barney, he has b/l C5-6 [...] Barney in 6 weeks. OM (onychomycosis) 12/10/2021 Immunizations Immunization Administration Dates Next Due Influenza [...] topic Insurance [employer] MEDICARE ADVANTAGE Care Teams Senior Hardware Engineer Relationship Specialty Start Date End Date Nba De La Garza MD [address] [place] [address] Dr Denny [place] PCP - General Internal Medicine 12/10/21
--- OUTSIDE RECORDS SUMMARY | 2025-08-15 10:31 | XMS_ITS | Patient Health Record ---
Author Organization [facility] Jane Chapin Address [address] [address] Care Team Providers Care House Calls Nurse Practitioner Name Role Phone Elmo Sol Primary Care Provider [phone] Isabell Bedoya [phone] Allergies Allergen (clinical drug ingredient) Drug/Non Drug [...] Problem Acquired hammer toe of right foot (5878015968236407) Other hammer toe(s) (acquired), right foot (M20.41) Active confirmed Problem Acquired hammer toe of left foot (4778441118061810) Other hammer toe(s) (acquired), left foot (M20.42) Active confirmed Problem Plantar wart (08877271) Plantar wart (B07.0) Active confirmed Problem Acquired right hallux valgus (012879138106813) Hallux valgus of right foot (M20.11) Active confirmed Problem Localized, primary osteoarthritis of the ankle and/or foot (432360464) Arthritis of joint of lesser toe, left (M19.072) Active confirmed Problem Localized, primary osteoarthritis of the ankle and/or foot (548352970) Arthritis of joint of lesser toe, right (M19.071) Active confirmed Vital Signs Blood pressure diastolic 83 mm Hg 06/27/2025 Height 5ft7in in 06/27/2025 Blood pressure systolic 120 mm Hg 06/27/2025 Weight 160 lbs 06/27/2025 BMI 25.06 kg/m2 06/27/2025 Encounters Encounter Location Date Provider Diagnosis [address] [address] 08/27/2024 Isabell Perica Onychomycosis B35.1 ; Metatarsalgia, right foot M77.41 ; Pain in right toe(s) M79.674 ; Pain in left toe(s) M79.675 ; Right foot pain M79.671 ; Plantar wart B07.0 ; Xerosis of skin L85.3 ; Other hammer toe(s) (acquired), right foot M20.41 ; Other hammer toe(s) (acquired), left foot M20.42 and Hallux valgus of right foot M20.[address] [address] 11/06/2024 Isabell Perica Onychomycosis B35.1 ; Tinea pedis of both feet B35.3 ; Pain in right toe(s) M79.674 ; Pain in left toe(s) M79.675 ; Right foot pain M79.671 ; Plantar wart B07.0 and Xerosis of skin L85.[address] [address] 01/28/2025 Isabell Perica Onychomycosis B35.1 ; Pain in right toe(s) M79.674 ; Pain in left toe(s) M79.675 ; Right foot pain M79.671 and Plantar wart B07.[address] [address] 04/11/2025 Isabell Perica Onychomycosis B35.1 ; Hallux valgus of right foot M20.11 ; Pain in right toe(s) M79.674 ; Pain in left toe(s) M79.675 ; Right foot pain M79.671 ; Plantar wart B07.0 and Other hammer toe(s) (acquired), right foot M20.[address] [address] 06/27/2025 Isabell Cordovaa Onychomycosis B35.1 ; Pain in right toe(s) M79.674 ; Pain in left toe(s) M79.675 ; Right foot pain M79.671 and Plantar wart B07.0 [facility] [address] [address] 06/27/2025 Isabell Bedoya Assessments Encounter Date Diagnosis [...] Details Provider Name:Isabell pinon, 10/07/2025 09:15:00 AM, [address] [place] [address], [phone], Insurance Providers Payer Name Payer Address Payer Phone Subscriber Number Group Number Insured Name Patient Relationship to Insured Coverage Start Date Coverage End Date [facility] [id number] [place] [address] [phone] [id number] Eliot Tobin Self - patient is the insured 4 Medical (General) History Medical History History ICD Code CAD (Cholesterol) covid-19 Heart disease Measles Mumps Chicken pox Surgical History Surgery Date(Month/Year) hernia surgery 1964
--- OUTSIDE RECORDS SUMMARY | 2025-08-15 10:31 | XMS_ITS | Data Portability ---
Author Organization [place] - [facility], Allergy Address [address] [address] Care Team Providers Care Seo Marketing Specialist Name Role Phone RODNEY ASHLEYK Primary Care Provider Assessment Encounter Date Assessment [...] By Organization Details Last Modified Time 08/13/2025 08803 - Monitor for ne w symptoms such [...] Address Organization Details Recorded Time Singers' nodes 38538996 Active 025 JABARI JARRELL MD [address] [place] [address], [phone], [facility] - [facility] 5 10:01:47 Dizziness 810749142 Active 025 JABARI JARRELL MD [address] [place] [address], [phone], [facility] 5 10:01:56 Problem Notes None recorded. Procedures Surgical History Date Name Laterality Status Provider Name and Address Organization Details Recorded Time 08/13/2025 FOL_DP completed JABARI JARRELL MD [address] [place] [address], [phone], [facility] 08/13/2025 10:01:39 Imaging Results None recorded. Procedure [...] Updated DateTime 08/13/2025 167.64 cm 25.8 kg/m2 12606.78 g 134/82 mm[Hg] CASPER BUCIO [place] - [facility] 08/13/2025 09:48:11 Social History None recorded. Functional Status None recorded. Mental Status None recorded. Family History Nothing Reported. Medical History No medical history recorded. Past Encounters Encounter ID Performer Location Encounter Start Date Encounter Closed Date Diagnosis/Indication Diagnosis SNOMED-CT Code Diagnosis ICD10 Code Diagnosis IMO Codes Diagnosis Note [id number] JABARI JARRELL MD [facility] [address] [address] 08/13/2025 09:16:34 08/13/2025 10:01:48 Singers' nodes 67965849 J38.2 [id number] Dizziness 786337115 R42 98427 Health Concerns Section Related Observation LastModified by Organization Detai ls LastModified Time None Recorded Concern Status LastModified by Organization Details LastModified Time None Recorded Advance Directives Directive None Recorded Payers Insurance Date Sequence Insurance Name Policy Number Policy Hatch Covered Member ID Hatch Member ID Guarantor Name 08/13/2025 1 [employer] (MEDICARE REPLACEMENT/ ADVANTAGE - PPO) [id number] Jack Eliot E Crista [id number] Eliot Ceci Crista Notes Date Note Type Note Provider Name [...] medication in June. He is retired from [employer] and remains active, previously engaging in running and biking until his cardiac ablation. He denies smoking history and reports no significant voice use such as singing or yelling. He expresses concern about the laryngeal nodule and seeks clarification regarding its nature. JABARI JARRELL MD [address] [place] [address], [phone], [facility] - [facility] 08/13/2025 10:02:44
--- OUTSIDE RECORDS SUMMARY | 2025-08-15 10:31 | XMS_ITS | Patient Health Record ---
Author Organization [facility] Address [address] [place] [address] Care Team Providers Care Furnace Combination Analyst Name Role Phone Holli (RETIRED) Nba WILKES Primary Care Provide r Yo Camargo [phone] Allergies Allergen (clinical drug ingredient) Drug/Non Drug Allergy documented on EMR Reaction Allergy Type Onset Date Status pollen,cats and dogs (uncoded) Unknown Allergy Active Reason For Referral No Information Medications Medication SIG (Take, Route, Frequency, Duration) Notes Start Date End Date Status Aspir-81 Active Colyte with Flavor Packs 240 GM Solution Reconstituted As directed Orally Over the specified time.; Duration: 1 day(s) 01/13/2017 Active ibuprofen prn Active Social History Social History Additional Details Category Social Info Options Details Miscellaneous: Marital status: 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 [employer] Problems Problem Type SNOMED Code ICD Code Onset Dates Problem Status W/U Status Risk Notes Problem Colon cancer screening (489819479) Colon cancer screening (Z12.11) Active confirmed Problem Pre-procedure evaluation check (681469720) Encounter for other preprocedural examination (Z01.818) Active confirmed Problem Long-term current use of antiplatelet drug (379479354485354 ) manager intermediate (current) use of aspirin (Z79.82) Active confirmed Plan Of Treatment Future Test Test Name Order Date COLONOSCOPY 01/13/2017 Insurance Providers Payer Name Payer Address Payer Phone Subscriber Number Group Number Insured Name Patient Relationship to Insured Coverage Start Date Coverage End Date [facility] [address] [address] [place], [place] [phone] [id number] KITA HERNANDEZ Self - patient is the insured Medical (General) History Medical History History ICD Code Denies PR,DM,CVA,Lung disease,renal dise ase Surgical History Surgery Date(Month/Year) hernia - age 9 1962
== END 2025-08-15 11:20 | disposition home or self-care (01) ==
PROVIDERS: PCP Internal Medicine; Visit Provider Physician Assistant
DX: R42 Dizziness and giddiness (principal); R11.0 Nausea

== ENCOUNTER → 2025-08-15 11:05 | Outpatient (BNV) | payer MEDICARE, SELFPAY | PROVIDERS: PCP Internal Medicine; Visit Provider Radiology Diagnostic Ultrasound | DX: R05.9 Cough, unspecified (principal) | CPT/HCPCS: 71046 ==

== ENCOUNTER 2025-08-15 11:31 | Outpatient (REF) | payer MEDICARE, SELFPAY ==
[2025-08-15 15:07] LABS: Resp Syncy Virus RNA Qual PCR NEGATIVE (Negative); SARS COV2 PCR INHOUSE NEGATIVE (Negative)
== END 2025-08-15 11:32 | disposition home or self-care (01) ==
LOC: HO.LAB 11:31
PROVIDERS: Visit Provider Physician Assistant
DX: R09.89 Other specified symptoms and signs involving the circulatory and respiratory systems (principal); R05.9 Cough, unspecified; Z03.818 Encounter for observation for suspected exposure to other biological agents ruled out
CPT/HCPCS: 71046; 87637; 99212

== ENCOUNTER 2025-08-18 14:05 | Outpatient (AMB) | payer MEDICARE, SELFPAY ==
[2025-08-18 14:18] VITALS: BP 123/59; PULSE 56; RESP 14; TEMP 36.4; O2SAT 98; BMI 25.4
--- NOTE | 2025-08-18 14:18 | A.OFFPC_ITS ---
Vital Signs 08/18/25 14:18 Height 5 ft 7 in Weight 162 lb BMI 25.4 BP 123/59 L Blood Pressure Location Rt brachial Position Sitting Respiration 14 Pulse 56 Pulse Source Pulse Oximeter Temp 97.6 F Temp Source Temporal Artery Scan Pulse Oximetry (%) 98 Oxygen Delivery Method Room Air Intake Visit Reasons: ? 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 Vertigo HPI Details 70 yr old male presents to the office to discuss his chronic medical conditions. Recently he was at the ENT office for evaluation of a nodule in his vocal chord. The ENT provider did not find any nodule. During his visit, patient felt very nauseous and dizzy. Changing position of his head was invoking symptoms. Recently he underwent ablation of atrial flutter. [facility] Medical History Vocal cord nodule Bradycardia Atrial flutter Hyperlipidemia Bicuspid aortic valve Atherosclerotic cardiovascular disease Surgical History S/P ablation of atrial flutter H/O right inguinal hernia repair History of colonoscopy (~03/17/17) History of hernia repair Family History Father CVD (cardiovascular disease) Mother Atrial fibrillation CVD (cardiovascular disease) Social History Household Members: Spouse Housing: House Do you presently have visiting nurse or other home services: No Alcohol intake: current Alcohol intake frequency: 0-2 drinks per day Alcohol type: beer Patient Tobacco Use Status: Never used Tobacco e-Cigarette/Vaping Use: Never Used service: No Current occupational status: retired Cognitive needs: No Hearing needs: No Vision needs: No Questionnaire PHQ-9 Over the last 2 weeks, how often have you been bothered by any of the following problems? 1. Little interest or pleasure in doing things: not at all 2. Feeling down, depressed, or hopeless: not at all 3. Trouble falling or staying asleep, or sleeping too much: not at all 4. Feeling tired or having little energy: not at all 5. Poor appetite or overeating: not at all 6. Feeling bad about yourself - or that you are a failure or have let yourself or your family down: not at all 7. Trouble concentrating on things, such as reading the newspaper or watching television: not at all 8. Moving or speaking so slowly that other people could have noticed. Or the opposite - being so fidgety or restless that you have been moving around a lot more than usual: not at all 9. Thoughts that you would be better off or of hurting yourself in some way: not at all Total score: 0 Depression Screening Interpretation: Negative Depression Screening Done: Yes Source: Developed by Drs. Yo Rod, Nolvia Gil, Marvel Guerrier and colleagues, with an educational kumar from [employer]. Thrive Questionnaire Date Thrive assessed: 07/09/25 I am a: Patient What is your living situation today?: I have a steady place to live Within the past 12 months, did the food you bought not last and you didn't have the money to get more?: Never true Within the past 12 months, did you worry whether your food would run out before you got money to buy more?: Never true Do you have trouble paying for medicines?: No Do you have trouble getting transportation to medical appointments?: No Do you have trouble paying your heating and electricity bill?: No Do you have trouble taking care of your child, family member or friend?: No Do you have trouble with day-to-day activities such as bathing, preparing meals, shopping, managing finances, etc.?: No Are you currently unemployed and looking for a job?: No Are you interested in more education?: No Currently or been in a relationship where the following occur: No concerns reported THRIVE Score: 0 AUDIT C Alcohol Use Questionnaire (AUDIT-C) 1. How often do you have a drink containing alcohol?: Monthly or less 2. How many drinks containing alcohol do you have on a typical day when you are drinking?: 1 or 2 3. How often do you have six or more drinks on one occasion?: Less than monthly Total Score: 2 TORRES-7 AMB Questionnaire TORRES-7 Date TORRES - 7 assessed: 02/26/25 Feeling nervous, anxious, or on edge: 0 = Not at all Not being able to stop or control worryin = Not at all Worrying too much about different things: 0 = Not at all Trouble relaxin = Not at all Being so restless that it is hard to sit still: 0 = Not at all Becoming easily annoyed or irritable: 0 = Not at all Feeling afraid as if something awful might happen: 0 = Not at all Total TORRES-7 score (0-4 normal; 5-9 mild; 10-14 moderate; 15-21 severe): 0 Source: Developed by Drs. Yo Rod, Nolvia Gil, Marvel Guerrier and colleagues, with an educational kumar from [employer]. Physical exam (Primary Care) Vital Signs: Last Vital Signs Temp 97.6 F 08/18/25 14:18 Pulse 56 08/18/25 14:18 Resp 14 08/18/25 14:18 BP 123/59 L 08/18/25 14:18 Pulse Ox 98 08/18/25 14:18 Oxygen Delivery Method Room Air 08/18/25 14:18 BMI result Body Mass Index 25.4 Tobacco/Smoking Status: Tobacco use Status Tobacco use date assessed 02/26/25 08/18/25 14:23 Patient Tobacco Use Status Never used Tobacco 08/18/25 14:23 e-Cigarette/Vaping Use Never Used 08/18/25 14:23 PHQ-9: PHQ-9 Score PHQ-9: Total score 0 08/18/25 14:23 Depression Screening Interpretation: Negative Thrive Assessment: Date of Thrive Assessment Date Thrive assessed 07/09/25 08/18/25 14:23 Currently or been in a relationship where the following occur: No concerns reported Const General: cooperative and healthy appearing Nutritional Appearance: well nourished Orientation/consciousness: patient oriented x3 Limitations: no limitations HENMT Head: Yes normal to inspection Eyes General: appearance normal, both eyes and all related structures Neck Neck: Yes normal visual inspection Chest Chest palpation & inspection: normal palpation of entire chest wall Resp Effort & Inspection: normal respiratory effort Neuro General: patient oriented x3 Office Procedures Flu Questionnaire Does the patient have a severe egg allergy?: No Does the patient have severe life threatening allergies?: No Does the patient have a fever or illness today?: No Has the patient ever had Guillain-Petal Syndrome?: No Has the patient ever had any past reaction to a flu shot?: No Immunizations Fluarix [id number] (PF) 45 mcg (15 mcg x 3)/0.5 mL IM syringe Performing Provider: Elmo Sol MD [facility] Documented (not given) by: DILLON Ac on 08/18/25 14:24 Reason Not Given: Received Previously Coding Level of Care Code Complex visit Add On G2211 Diagnoses Dizziness R42 Assessment & Plan Assessment & Plan (1) Dizziness: Code(s): R42 - Dizziness and giddiness Category: Medical Plan: Encouraged patient to get the holter test done. Sx could also be inner ear related. Encouraged to keep appt with ENT. Colchicine to be continued to use for pericarditis. Orders: Orders Influenza [id number] Immunization Today Z23 - Encounter for immunization
--- OUTSIDE RECORDS SUMMARY | 2025-08-18 19:00 | XMS_ITS | Continuity of Care Document ---
Author Organization [place] - [facility], [facility] Address [address] [place] [address] Care Team Providers Care Ase Master Mechanic Name Role Phone DION, KARTIK Primary Care [...] By Organization Details Last Modified Time 08/13/2025 30419 - Monitor for ne w symptoms such [...] Address Organization Details Recorded Time Singers' nodes 31903002 Active 025 JABARI JARRELL MD [address] [place] [address], [phone], [facility] - [facility] 5 10:01:47 Dizziness 031514352 Active 025 JABARI JARRELL MD [address] [place] [address], [phone], [facility] 5 10:01:56 Problem Notes None recorded. Procedures Surgical History Date Name Laterality Status Provider Name and Address Organization Details Recorded Time 08/13/2025 FOL_DP completed JABARI JARRELL MD [address] [place] [address], [phone], [facility] 08/13/2025 10:01:39 Imaging Results None recorded. [...] Updated DateTime 08/13/2025 167.64 cm 25.8 kg/m2 57904.78 g 134/82 mm[Hg] CASPER BUCIO [facility] 08/13/2025 09:48:11 Social History None recorded. Functional Status None recorded. Mental Status None recorded. Family History Nothing Reported. Medical History No medical history recorded. Past Encounters Encounter ID Performer Location Encounter Start Date Encounter Closed Date Diagnosis/Indication Diagnosis SNOMED-CT Code Diagnosis ICD10 Code Diagnosis IMO Codes Diagnosis Note [id number] JABARI JARRELL MD [facility] [address] [address] 08/13/2025 09:16:34 08/13/2025 10:01:48 Singers' nodes 30752068 J38.2 [id number] Dizziness 464710311 R42 57675 Health Concerns Section Related Observation LastModified by Organization Detai ls LastModified Time None Recorded Concern Status LastModified by Organization Details LastModified Time None Recorded Payers Encounter Date Sequence Insurance Name Policy Number Policy Hatch Covered Member ID Hatch Member ID Guarantor Name 08/13/2025 1 [employer] (MEDICARE REPLACEMENT/ ADVANTAGE - PPO) [id number] Jack Eliot E Crista [id number] Eliot Tobin Notes Date Note Type Note [...] medication in June. He is retired from [employer] and remains active, previously engaging in running and biking until his cardiac ablation. He denies smoking history and reports no significant voice use such as singing or yelling. He expresses concern about the laryngeal nodule and seeks clarification regarding its nature. JABARI JARRELL MD [address] [place] [address], [place], [phone], [facility] - [facility] 08/13/2025 10:02:44
--- OUTSIDE RECORDS SUMMARY | 2025-08-18 19:00 | XMS_ITS | Data Portability ---
Author Organization [place] - [facility], Allergy Address [address] [address] Care Team Providers Care Career Development Coordinator/Teacher Name Role Phone RODNEY ASHLEYK Primary Care [...] By Organization Details Last Modified Time 08/13/2025 73219 - Monitor for ne w symptoms such [...] Address Organization Details Recorded Time Singers' nodes 15715136 Active 025 JABARI JARRELL MD [address] [place] [address], [phone], [facility] - [facility] 5 10:01:47 Dizziness 441093502 Active 025 JABARI JARRELL MD [address] [place] [address], [phone], [facility] 5 10:01:56 Problem Notes None recorded. Procedures Surgical History Date Name Laterality Status Provider Name and Address Organization Details Recorded Time 08/13/2025 FOL_DP completed JABARI JARRELL MD [address] [place] [address], [phone], [facility] 08/13/2025 10:01:39 Imaging Results None recorded. Procedure [...] Updated DateTime 08/13/2025 167.64 cm 25.8 kg/m2 52348.78 g 134/82 mm[Hg] CASPER BUCIO [place] - [facility] 08/13/2025 09:48:11 Social History None recorded. Functional Status None recorded. Mental Status None recorded. Family History Nothing Reported. Medical History No medical history recorded. Past Encounters Encounter ID Performer Location Encounter Start Date Encounter Closed Date Diagnosis/Indication Diagnosis SNOMED-CT Code Diagnosis ICD10 Code Diagnosis IMO Codes Diagnosis Note [id number] JABARI JARRELL MD [facility] [address] [address] 08/13/2025 09:16:34 08/13/2025 10:01:48 Singers' nodes 73549455 J38.2 [id number] Dizziness 218937780 R42 13433 Health Concerns Section Related Observation LastModified by Organization Detai ls LastModified Time None Recorded Concern Status LastModified by Organization Details LastModified Time None Recorded Advance Directives Directive None Recorded Payers Insurance Date Sequence Insurance Name Policy Number Policy Hatch Covered Member ID Hatch Member ID Guarantor Name 08/13/2025 1 [employer] (MEDICARE REPLACEMENT/ ADVANTAGE - PPO) [id number] Jack Eliot E Crista [id number] Eliot Ceci Crista Notes Date Note Type [...] medication in June. He is retired from [employer] and remains active, previously engaging in running and biking until his cardiac ablation. He denies smoking history and reports no significant voice use such as singing or yelling. He expresses concern about the laryngeal nodule and seeks clarification regarding its nature. JABARI JARRELL MD [address] [place] [address], [phone], [facility] - [facility] 08/13/2025 10:02:44
--- OUTSIDE RECORDS SUMMARY | 2025-08-18 19:00 | XMS_ITS | Patient Health Record ---
Author Organization [facility] Jane [facility] Address [address] [address] Care Team Providers Care History Teacher Name Role Phone Elmo Sol Primary Care Provider Isabell Bedoya [phone] Allergies Allergen (clinical drug ingredient) Drug/Non Drug [...] Problem Acquired hammer toe of right foot (4920739122423730) Other hammer toe(s) (acquired), right foot (M20.41) Active confirmed Problem Acquired hammer toe of left foot (0661952707254950) Other hammer toe(s) (acquired), left foot (M20.42) Active confirmed Problem Plantar wart (73313198) Plantar wart (B07.0) Active confirmed Problem Acquired right hallux valgus (990338562862910) Hallux valgus of right foot (M20.11) Active confirmed Problem Localized, primary osteoarthritis of the ankle and/or foot (804090208) Arthritis of joint of lesser toe, left (M19.072) Active confirmed Problem Localized, primary osteoarthritis of the ankle and/or foot (910703783) Arthritis of joint of lesser toe, right (M19.071) Active confirmed Vital Signs Blood pressure diastolic 83 mm Hg 06/27/2025 Height 5ft7in in 06/27/2025 Blood pressure systolic 120 mm Hg 06/27/2025 Weight 160 lbs 06/27/2025 BMI 25.06 kg/m2 06/27/2025 Encounters Encounter Location Date Provider Diagnosis [address] [address] 08/27/2024 Isabell Perica Onychomycosis B35.1 ; Metatarsalgia, right foot M77.41 ; Pain in right toe(s) M79.674 ; Pain in left toe(s) M79.675 ; Right foot pain M79.671 ; Plantar wart B07.0 ; Xerosis of skin L85.3 ; Other hammer toe(s) (acquired), right foot M20.41 ; Other hammer toe(s) (acquired), left foot M20.42 and Hallux valgus [facility] right foot [facility] [address] 11/06/2024 Isabell Perica Onychomycosis B35.1 ; Tinea pedis of both feet B35.3 ; Pain in right toe(s) M79.674 ; Pain in left toe(s) M79.675 ; Right foot pain M79.671 ; Plantar wart B07.0 and Xerosis of skin L85.[address] [address] 01/28/2025 Isabell Perica Onychomycosis B35.1 ; Pain in right toe(s) M79.674 ; Pain in left toe(s) M79.675 ; Right foot pain M79.671 and Plantar wart B07.[address] [address] 04/11/2025 Isabell Perica Onychomycosis B35.1 ; Hallux valgus of right foot M20.11 ; Pain in right toe(s) M79.674 ; Pain in left toe(s) M79.675 ; Right foot pain M79.671 ; Plantar wart B07.0 and Other hammer toe(s) (acquired), right foot M20.[address] [address] 06/27/2025 Isabell Cordovaa Onychomycosis B35.1 ; Pain in right toe(s) M79.674 ; Pain in left toe(s) M79.675 ; Right foot pain M79.671 and Plantar wart B07.0 [facility] [address] [address] 06/27/2025 Isabell Bedoya Assessments Encounter Date Diagnosis [...] Details Provider Name:Isabell pinon, 10/07/2025 09:15:00 AM, [address] [place] [address], [phone], Insurance Providers Payer Name Payer Address Payer Phone Subscriber Number Group Number Insured Name Patient Relationship to Insured Coverage Start Date Coverage End Date [facility] [id number] [place] [address] [id number] Eliot Tobin Self - patient is the insured 4 Medical (General) History Medical History History ICD Code CAD (Cholesterol) covid-19 Heart disease Measles Mumps Chicken pox Surgical History Surgery Date(Month/Year) hernia surgery 1962
--- OUTSIDE RECORDS SUMMARY | 2025-08-18 19:01 | XMS_ITS | Patient Health Record ---
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 [employer] Problems Problem Type SNOMED Code ICD Code Onset Dates Problem Status W/U Status Risk Notes Problem Colon cancer screening (893772723) Colon cancer screening (Z12.11) Active confirmed Problem Pre-procedure evaluation check (951929585) Encounter for other preprocedural examination (Z01.818) Active confirmed Problem Long-term current use of antiplatelet drug (803722188215269 ) termination clerk (current) use of aspirin (Z79.82) Active confirmed Plan Of Treatment Future Test Test Name Order Date COLONOSCOPY 01/13/2017 Insurance Providers Payer Name Payer Address Payer Phone Subscriber Number Group Number Insured Name Patient Relationship to Insured Coverage Start Date Coverage End Date [facility] [address] [address] [place], [place] [id number] [phone] [id number] KITA HERNANDEZ Self - patient is the insured Medical (General) History Medical History History ICD Code Denies IA,DM,CVA,Lung disease,renal dise ase Surgical History Surgery Date(Month/Year) hernia - age 9 1962
--- OUTSIDE RECORDS SUMMARY | 2025-08-18 19:01 | XMS_ITS | Clinical Summary ---
Author Organization [facility] Address [address] [place] [address] Phone Care Team Providers Care Tailor Fitter Name Role Phone Nba De La Garza MD Primary Care Provider [phone] Allergies No known active allergies Medications ammonium [...] either. I reviewed his C/[place] from [facility] with [place]. Barney, he has b/l C5-6 [...] topic Insurance [employer] Care Teams Tailor Fitter Relationship Specialty Start Date End Date Nba De La Garza MD [address] [place] [address] Dr Denny MA PCP - General Internal Medicine 12/10/21
== END 2025-08-18 15:13 | disposition home or self-care (01) ==
LOC: HO.HMCSH 14:05
PROVIDERS: PCP Internal Medicine; Visit Provider Internal Medicine
DX: Z23 Encounter for immunization (principal); R42 Dizziness and giddiness

== ENCOUNTER → 2025-08-18 14:05 | Outpatient (BNVA) | payer MEDICARE, SELFPAY | PROVIDERS: PCP Internal Medicine; Visit Provider Internal Medicine | DX: R42 Dizziness and giddiness (principal); Z28.89 Immunization not carried out for other reason | CPT/HCPCS: 90471; 96127; 99212 ==